=== PATIENT | male | born 1960 | race Caucasian/White ===

== ENCOUNTER 2018-07-09 22:22 | Inpatient (IN) | payer BC, OTHER ==
[2018-07-09] MEDS ORDERED: NORMAL SALINE 250 ML IV PRN (22:34)
[2018-07-09] MEDS ORDERED: DIPHENHYDRAMINE HCL 50 MG/ML VIAL IV ONE ×2 (22:35→22:47)
[2018-07-09] MEDS ORDERED: EPINEPHRINE INJ/PF 1 MG/1 ML AMPULE IM ONE (22:35)
[2018-07-09] MEDS ORDERED: METHYLPREDNISOLONE INJ 125 MG/2 ML SDV IV ONE (22:35)
--- NOTE | 2018-07-09 22:36 | ER Document Report ---
ED General - General Chief Complaint: Swelling of Tongue Stated Complaint: TONGUE/FACIAL SWELLING Time Seen by Provider: 07/09/18 22:34 Primary Care Provider: ISHAAN BARRETT MD [Primary Care Provider] - Follow up as needed Notes: Patient is a 57-year-old male presents with complaint of tongue swelling. He says he said this happened 3 times before but it went away on its own. He is on lisinopril. Patient denies any itching. No rash. No difficulty breathing at this time. Some difficulty swallowing. No other complaints at this time. He says he only takes medications for high blood pressure and high cholesterol. TRAVEL OUTSIDE OF THE [place] IN LAST 30 DAYS: No - Related Data Allergies/Adverse Reactions: lisinopril Allergy (Verified 07/09/18 22:51) Past Medical History - Social History Smoking Status: Never Smoker Frequency of alcohol use: Heavy Drug Abuse: None Family History: Reviewed & Not Pertinent Review of Systems - Review of Systems Notes: My Normal Review Basic REVIEW OF SYSTEMS: CONSTITUTIONAL : Denies fever, chills, or sweats. Denies recent illness. EENT: Large amount of tongue swelling. CARDIOVASCULAR: Denies chest pain. RESPIRATORY: Denies cough, cold, or chest congestion. Denies shortness of breath, difficulty breathing, or wheezing. GASTROINTESTINAL: Denies abdominal pain. Denies nausea, vomiting, or diarrhea. MUSCULOSKELETAL: Denies neck or back pain or joint pain or swelling. SKIN: Denies rash or skin lesions. NEUROLOGICAL: Denies altered mental status or loss of consciousness. Denies headache. Denies weakness or paralysis or loss of use of either side. Denies problems with gait or speech. Denies sensory or motor loss. ALL OTHER SYSTEMS REVIEWED AND NEGATIVE. Physical Exam - Vital signs Vitals: Temp Pulse Resp BP Pulse Ox 97.8 F 61 19 153/99 H 99 07/09/18 22:28 07/09/18 22:28 07/09/18 22:28 07/09/18 22:28 07/09/18 22:28 - Notes Notes: General Appearance: Well nourished, alert, cooperative, no acute distress, no obvious discomfort. Well-appearing. Vitals: reviewed, See vital signs table. Head: no swelling or tenderness to the head Eyes: PERRL, EOMI, Conjuctiva clear Mouth: No decreasd moisture. Large swollen tongue. Patient able to talk some but the speech is very mobile due to the swollen tongue. No lip swelling. Throat: No tonsillar inflammation, No airway obstruction, No lymphadenopathy Neck: Supple, no neck tenderness, No neck swelling Lungs: No wheezing, No rales, No rhonci, No accessory muscle use, good air exchange bilaterally. Heart: Normal rate, Regular rythm, No murmur, no rub Abdomen: Normal BS, soft, No rigidity, No abdominal tenderness, No guarding, no rebound, no abdominal masses, no organomegaly Extremities: strength 5/5 in all extremities, good pulses in all extremities, no swelling or tenderness in the extremities, no edema. Skin: warm, dry, appropriate color, no rash Neuro: speech clear, oriented x 3, normal affect, responds appropriately to questions. Course - Re-evaluation Re-evalutation: 07/09/18 22:35 Patient is very swollen and enlarged tongue. Looks consistent with angioedema. He is on lisinopril. This is the third time this has happened. I suspect it probably is related to the lisinopril as he still on the medication. Even I suspect this bradykinin induced angioedema will start with antihistamines such as epi, Benadryl, and Solu-Medrol to see if this helps. I have already ordered the FFP. We will try these other medications until the FFP can be followed. I will closely monitor his airway. He does need airway intervention and will call anesthesia to come to assist. 07/09/18 22:39 I did call blood bank to make them aware that I want the FFP thawed as soon as possible. I did inform the nurse that he will need to type and screen drawn. 07/09/18 23:05 Patient's tongue is now large. I have called nursing laboratory animal facility supervisor to bring anesthesia and to get the patient's airway secured. Patient also suddenly became hypotensive and bradycardic and now has a headache. Once his airway secured I will taken to CT scan to scan his head. 07/09/18 23:17 [address] the way. I have attempted to call the surgeon twice with no response. 07/09/18 23:34 Anesthesiologist came down and was able to intubate the patient. Patient is on the ventilator and doing well. Also the patient a CT scan of his head due to the sudden onset headache that occurred approximately 1 hour ago. Blood pressure is improved. 07/10/18 01:08 Patient at times having hard time keeping sedated with Versed and propofol. He is responding to fentanyl pushes. I have ordered a fentanyl drip. CT scan was ordered because the patient did have a headache earlier that occurred after receiving the IM epi. Patient's blood pressure is normalized. His CT scan of the head shows no evidence of intracranial bleeding. Airway is stabilized on the ventilator. He is receiving FFP to help reduce the amount of edema in his tongue. I did speak with the hospitalist, Dr. Gilbert, who agrees to evaluate the patient. Dictation of this chart was performed using voice recognition software; therefore, there may be some unintended grammatical errors. - Vital Signs Vital signs: Temp Pulse Resp BP Pulse Ox 97.8 F 61 16 153/99 H 100 07/09/18 22:28 07/09/18 22:28 07/09/18 22:34 07/09/18 22:28 07/09/18 22:34 - Laboratory Result Diagrams: 07/09/18 22:55 07/09/18 22:55 Laboratory results interpreted by me: 07/09/18 07/09/18 22:55 22:55 RBC 3.19 L Hgb 11.9 L Hct 34.3 L MCV 107 H MCH 37.2 H RDW 17.6 H Plt Count 116 L Potassium 3.4 L Critical Care Note - Critical Care Note Total time excluding time spent on procedures (mins): 65 Comments: Critical care time for this patient not including time spent on procedures approximately 65 minutes due to frequent re-evaluations, management of angioedema, management of sedation. Discharge - Discharge Clinical Impression: Angio-edema Qualifiers: Encounter type: initial encounter Qualified Code(s): T78.3XXA - Angioneurotic edema, initial encounter Condition: Stable Disposition: ADMITTED INPATIENT Admitting Provider: Hospitalist Unit Admitted: ICU
[2018-07-09] MEDS ORDERED: HYDROMORPHONE HCL INJ/PF 2 MG/ML AMPULE ONE (23:07)
[2018-07-09 23:10] LABS: ABSOLUTE BASOPHILS # (AUTO) 0.1 10^3/uL (0.0-0.2); ABSOLUTE EOSINOPHILS # (AUTO) 0.2 10^3/uL (0.0-0.6); ABSOLUTE LYMPHOCYTES (AUTO) 1.1 10^3/uL (0.5-4.7); ABSOLUTE MONOCYTES (AUTO) 0.6 10^3/uL (0.1-1.4); ABSOLUTE NEUT (AUTO) 4.9 10^3/uL (1.7-8.2); HEMATOCRIT 34.3 % (37.9-51.0); HEMOGLOBIN 11.9 g/dL (13.5-17.0); LYMPHOCYTES % (AUTO) 16.7 % (13-45); MEAN CORPUSCULAR HEMOGLOBIN 37.2 pg (27.0-33.4); MEAN CORPUSCULAR HGB CONC 34.6 g/dL (32.0-36.0); MEAN CORPUSCULAR VOLUME 107 fl (80-97); MONOCYTES % (AUTO) 8.1 % (3-13); PLATELET COUNT 116 10^3/uL (150-450); RED BLOOD COUNT 3.19 10^6/uL (4.35-5.55); RED CELL DISTRIBUTION WIDTH 17.6 % (11.5-14.0); SEGMENTED NEUTROPHILS % (AUTO) 71.2 % (42-78); TOTAL CELLS COUNTED % (AUTO) 100 %; WHITE BLOOD COUNT 6.9 10^3/uL (4.0-10.5)
[2018-07-09] MEDS ORDERED: KETAMINE HCL INJ 500 MG/10 ML VIAL ONE (23:11)
[2018-07-09] MEDS ORDERED: FENTANYL CITRATE INJ/PF 100 MCG/2 ML AMPUL ONE (23:12)
[2018-07-09] MEDS ORDERED: LIDOCAINE 1%/EPINEPHRINE INJ 20 ML VIAL ONE (23:14)
[2018-07-09] MEDS ORDERED: PROPOFOL 1,000 MG/100 ML INFUS..BTL IV ONE (23:25)
[2018-07-09 23:28] LABS: ANION GAP 13 (5-19); BLOOD UREA NITROGEN 7 mg/dL (7-20); CARBON DIOXIDE 23 mmol/L (22-30); CHLORIDE 103 mmol/L (98-107); GLUCOSE 86 mg/dL (75-110); POTASSIUM 3.4 mmol/L (3.6-5.0); SODIUM 139.1 mmol/L (137-145)
[2018-07-09] MEDS: PROPOFOL 1,000 MG/100 ML INFUS..BTL IV PRN (23:28)
[2018-07-09] MEDS ORDERED: PROPOFOL INJ 200 MG/20 ML VIAL IV ONE (23:36)
[2018-07-09] MEDS: MIDAZOLAM HCL 50 MG/100 ML RTUINJ IV PRN (23:50)
--- NOTE | 2018-07-09 23:53 | RADIOLOGY REPORT (SQ) ---
EXAM DESCRIPTION: XR CHEST 1 VIEW COMPLETED DATE/TME: 07/09/2018 23:33 CLINICAL HISTORY: 57 years, Male, ET tube placement COMPARISON: None. NUMBER OF VIEWS: 1 TECHNIQUE: Portable chest LIMITATIONS: None. FINDINGS: Cardiomegaly. Elevation right hemidiaphragm. Lungs are clear. Endotracheal tube with the tip approximately 5 cm above the richard. No pneumothorax. IMPRESSION: Endotracheal tube in place. Cardiomegaly copyright 2010 [employer] [facility] [employer]- All Rights Reserved
[2018-07-10 00:04] LABS: INTERNATIONAL RATION (INR) 0.97; PROTHROMBIN TIME 13.3 SEC (11.4-15.4)
[2018-07-10] MEDS ORDERED: FENTANYL CITRATE INJ/PF 100 MCG/2 ML AMPUL IV ONE ×2 (00:13→00:37)
[2018-07-10] MEDS ORDERED: FENTANYL CITRATE INJ/PF 100 MCG/2 ML AMPUL ONE (00:13)
[2018-07-10] MEDS ORDERED: LIDOCAINE 2% URO-JET 5 ML KIT MM ONE (00:24)
--- NOTE | 2018-07-10 00:36 | RADIOLOGY REPORT (SQ) ---
EXAM DESCRIPTION: CT HEAD WITHOUT IV CONTRAST COMPLETED DATE/TME: 07/09/2018 23:33 CLINICAL HISTORY: 57 years, Male, headache COMPARISON: None. TECHNIQUE: 199 Images stored on PACS. All CT scanners at this facility use dose modulation, iterative reconstruction, and/or weight based dosing when appropriate to reduce radiation dose to as low as reasonably achievable (ALARA). [facility]: Dose Right [facility]: CareDose [facility]: Dose Right [facility]: Teradose 4D [facility]: Pipit Interactive LIMITATIONS: None. FINDINGS: The globes are intact. Motion artifact degrades image quality. Nasogastric tube partially seen. Paranasal sinusitis. No evidence for displaced or depressed skull fracture. No intra or extra-axial hemorrhage. CT is limited for evaluation of acute infarct. No CT evidence for large or territorial acute infarct. No mass or midline shift IMPRESSION: Limited due to motion however no evidence for acute intracranial abnormality. Pansinusitis. TECHNICAL DOCUMENTATION: Quality ID # 436: Final reports with documentation of one or more dose reduction techniques (e.g., Automated exposure control, adjustment of the mA and/or kV according to patient size, use of iterative reconstruction technique) copyright 2010 [employer]- All Rights Reserved
[2018-07-10] MEDS ORDERED: FENTANYL CITRATE/PF 600 MCG/60 ML BAG IV PRN (01:28)
[2018-07-10] MEDS ORDERED: DEXTROSE 40% GEL 15 GM TUBE PO PRN ×2 (01:54)
[2018-07-10] MEDS ORDERED: GLUCAGON,HUMAN RECOMB 1 MG INJ SUBCUT PRN (01:54)
[2018-07-10] MEDS ORDERED: ONDANSETRON HCL INJ/PF 4 MG/2 ML SDV IV PRN (01:54)
[2018-07-10] MEDS ORDERED: DEXTROSE 50%-WATER 25 GM/50 ML DISP.SYRIN IV PRN ×2 (01:54)
[2018-07-10 03:11] LABS: CREATINE KINASE MB 0.52 ng/mL (<4.55)
[2018-07-10 03:16] LABS: TROPONIN I < 0.012 ng/mL
[2018-07-10 05:37] LABS: ARTERIAL BLOOD BASE EXCESS -1.5 mmol/L; ARTERIAL BLOOD H2CO3 1.12 mmol/L (1.05-1.35); ARTERIAL BLOOD HCO3 22.9 mmol/L (20-24); ARTERIAL BLOOD O2 SATURATION 98.7 % (94-98); ARTERIAL BLOOD PCO2 37.3 mmHg (35-45); ARTERIAL BLOOD PH 7.41 (7.35-7.45); ARTERIAL BLOOD PO2 135.3 mmHg (80-100)
[2018-07-10 05:37] LABS: CREATINE KINASE MB 0.52 ng/mL (<4.55); TROPONIN I 0.015 ng/mL
[2018-07-10 05:38] LABS: ARTERIAL BLOOD FIO2 60%
[2018-07-10] MEDS: DIPHENHYDRAMINE HCL 50 MG/ML VIAL IV SCH ×4 (05:53→23:32)
[2018-07-10] MEDS: METHYLPREDNISOLONE INJ 40 MG/1 ML SDV IV SCH ×4 (05:53→23:32)
[2018-07-10] MEDS: MIDAZOLAM HCL 50 MG/100 ML RTUINJ IV PRN ×4 (05:55→20:29)
[2018-07-10] MEDS: POTASSI CL 20 MEQ/D5-1/2NS 1L 1,000 ML IV PRN ×3 (05:56→23:31)
[2018-07-10] MEDS: PROPOFOL 1,000 MG/100 ML INFUS..BTL IV PRN ×4 (05:57→22:54)
--- NOTE | 2018-07-10 06:12 | PDOC H&P ---
History of Present Illness Admission Date/PCP: 07/10/18 01:16 ISHAAN BARRETT MD Patient complains of: Swelling of mouth and tongue History of Present Illness: ALEKSANDRA SALAZAR is a 57 year old male who presented to the emergency room with an acute history of swelling of his mouth and tongue. He admits that he had sudden onset of swelling of his lips and tongue beginning a short time prior to his arrival at the emergency room. In addition to the swelling he had noted some difficulty with swallowing. Initially he was having no itching or difficulty breathing but over a short time in the emergency room his symptoms increased exponentially to the point where he was having a good deal of difficulty breathing and required intubation and ventilation. He admited having several prior similar episodes that went away very quickly after taking Benadryl but this episode had not improved after taking Benadryl and he was concerned. He denies identification of any other aggravating or ameliorating factors for his angioedema. He does take lisinopril but was not aware that it might cause this problem. In the emergency room he was found to have rapidly progressing severe angioedema requiring intubation to maintain his airway. He was subsequently admitted to the ICU for further evaluation and treatment. Past Medical History Cardiac Medical History: Reports: Hyperlipidema, Hypertension Pulmonary Medical History: Denies: Asthma, Chronic Obstructive Pulmonary Disease (COPD) EENT Medical History: Denies: Cataracts Neurological Medical History: Denies: Hemorrhagic CVA, Ischemic CVA, Seizures Endocrine Medical History: Denies: Diabetes Mellitus Type 1, Diabetes Mellitus Type 2, Hyperthyroidism, Hypothyroidism Renal/ Medical History: Reports: Other - Prostate cancer Denies: Chronic Kidney Disease, Nephrolithiasis Malignancy Medical History: Reports: None GI Medical History: Denies: Cirrhosis, Hepatitis Musculoskeltal Medical History: Denies: Arthritis, Gout Skin Medical History: Denies: Eczema, Psoriasis Psychiatric Medical History: Reports: Alcohol Dependency, Tobacco Dependency Denies: Substance Abuse Traumatic Medical History: Reports: None Hematology: Reports: Anemia Denies: Bleeding Tendencies Infectious Medical History: Reports: None Past Surgical History Past Surgical History: Reports: Other - Radioactive seed implants for prostate cancer Social History Information Source: Relative Lives with: Parents Smoking Status: Current Every Day Smoker Frequency of Alcohol Use: Heavy Hx Recreational Drug Use: No Drugs: None Hx Prescription Drug Abuse: No - Advance Directive Resuscitation Status: Full Code Surrogate healthcare decision maker:: Mother Family History Family History: Hyperlipidemia, Hypertension, Malignancy, Other - Alcoholism Parental Family History Reviewed: Yes Children Family History Reviewed: No Sibling(s) Family History Reviewed.: Yes Medication/Allergy Allergies/Adverse Reactions: lisinopril Allergy (Verified 07/09/18 22:51) Review of Systems ROS unobtainable: Due to endotracheal tube Physical Exam Vital Signs: Temp Pulse Resp BP Pulse Ox 97.8 F 61 16 153/99 H 100 07/09/18 22:28 07/09/18 22:28 07/09/18 22:34 07/09/18 22:28 07/09/18 22:34 Intake & Output 07/08/18 07/09/18 07/10/18 23:59 23:59 23:59 Intake Total 5 20 Balance 5 20 Weight 88.3 kg General appearance: PRESENT: no acute distress, other - Intubated and ventilated with sedation. Head exam: PRESENT: atraumatic, normocephalic Eye exam: PRESENT: conjunctiva pink. ABSENT: scleral icterus Ear exam: PRESENT: normal external ear exam. ABSENT: bleeding, drainage Mouth exam: PRESENT: dry mucosa, neck supple Neck exam: ABSENT: thyromegaly, tracheal deviation Respiratory exam: PRESENT: clear to auscultation jhonathan, symmetrical, other - Intubated and mechanically ventilated Cardiovascular exam: PRESENT: RRR. ABSENT: clicks, gallop, rubs Pulses: PRESENT: normal radial pulses, normal dorsalis pedis pul Vascular exam: PRESENT: normal capillary refill. ABSENT: pallor GI/Abdominal exam: PRESENT: normal bowel sounds, soft Rectal exam: PRESENT: deferred Extremities exam: ABSENT: joint swelling, pedal edema Musculoskeletal exam: ABSENT: deformity, dislocation Neurological exam: PRESENT: reflexes normal, other - Sedated for intubation Psychiatric exam: PRESENT: other - Sedated for intubation precluding further evaluation Skin exam: PRESENT: dry, intact, warm. ABSENT: jaundice, rash, urticaria Results Laboratory Results: 07/09/18 22:55 07/09/18 22:55 07/09/18 07/09/18 07/09/18 22:55 22:55 22:55 WBC 6.9 RBC 3.19 L Hgb 11.9 L Hct 34.3 L MCV 107 H MCH 37.2 H MCHC 34.6 RDW 17.6 H Plt Count 116 L Seg Neutrophils % 71.2 Lymphocytes % 16.7 Monocytes % 8.1 Eosinophils % 3.0 Basophils % 1.0 Absolute Neutrophils 4.9 Absolute Lymphocytes 1.1 Absolute Monocytes 0.6 Absolute Eosinophils 0.2 Absolute Basophils 0.1 Sodium 139.1 Potassium 3.4 L Chloride 103 Carbon Dioxide 23 Anion Gap 13 BUN 7 Creatinine 0.64 Est GFR ( Amer) > 60 Est GFR (Non-Af Amer) > 60 Glucose 86 Calcium 9.0 Blood Type O NEGATIVE Impressions: Chest X-Ray 07/09/18 23:33 IMPRESSION: Endotracheal tube in place. Cardiomegaly copyright 2010 [employer]- All Rights Reserved Head CT 07/09/18 23:33 IMPRESSION: Limited due to motion however no evidence for acute intracranial abnormality. Pansinusitis. TECHNICAL DOCUMENTATION: Quality ID # 436: Final reports with documentation of one or more dose reduction techniques (e.g., Automated exposure control, adjustment of the mA and/or kV according to patient size, use of iterative reconstruction technique) copyright 2010 [employer]- All Rights Reserved Assessment & Plan - Diagnosis (1) Acute respiratory failure Qualifiers: Respiratory failure complication: unspecified whether with hypoxia or hypercapnia Qualified Code(s): J96.00 - Acute respiratory failure, unspecified whether with hypoxia or hypercapnia Is this a current diagnosis for this admission?: Yes Plan: Patient had acute respiratory failure based on his angioedema obstructing his airway. He was subsequently intubated and he will be maintained on intubation with mechanical ventilation until such time as it is safe to discontinue his e ndotracheal tube. (2) Angioedema of intestine due to angiotensin converting enzyme inhibitor (KARLOS- I) Is this a current diagnosis for this admission?: Yes Plan: Patient will be treated with IV steroids and supportive as well as symptomatic cares until his angioedema resolves. He will be discontinued from use of KARLOS inhibitors. (3) Hypertension Qualifiers: Hypertension type: essential hypertension Qualified Code(s): I10 - Essential (primary) hypertension Is this a current diagnosis for this admission?: Yes Plan: Patient will be placed on an alternate antihypertensive therapy prior to discharge. In the interim he will be treated with intravenous hydralazine and/or intravenous metoprolol to maintain a blood pressure less than 160/100 (4) Hyperlipidemia Qualifiers: Hyperlipidemia type: unspecified Qualified Code(s): E78.5 - Hyperlipidemia, unspecified Is this a current diagnosis for this admission?: Yes Plan: Patient will be returned to his usual statin therapy once he is able to take oral medications again. A lipid profile will be obtained to evaluate his ther apeutic efficacy. (5) Alcohol abuse Is this a current diagnosis for this admission?: Yes Plan: Patient will be counseled for discontinuation or reduction of alcohol abuse in the future once he is able to be involved in this discussion. (6) Tobacco use disorder, moderate, dependence Is this a current diagnosis for this admission?: Yes Plan: Patient will be counseled for tobacco cessation when he is able to be involved in the discussion. A nicotine patch will be available as required. - Time Time Spent: 30 to 50 Minutes Critical Time spent with patient: Less than 15 minutes Medications reviewed and adjusted accordingly: Yes Anticipated discharge: Home - Inpatient Certification Based on my medical assessment, after consideration of the patient's comorbidities, presenting symptoms, or acuity I expect that the services needed warrant INPATIENT care.: Yes I certify that my determination is in accordance with my understanding of Medicare's requirements for reasonable and necessary INPATIENT services [42 CFR 412.3e].: Yes Medical Necessity: Need Close Monitoring Due to Risk of Patient Decompensation, Need For Continuous Telemetry Monitoring, Risk of Complication if Not Cared For in Hospital
[2018-07-10] MEDS ORDERED: FONDAPARINUX SODIUM INJ 2.5 MG/0.5 ML DISP.SYRIN SUBCUT SCH (08:00)
[2018-07-10] MEDS ORDERED: SUCCINYLCHOLINE CHLORIDE INJ 200 MG/10 ML VIAL ONE (09:12)
[2018-07-10] MEDS ORDERED: ETOMIDATE INJ/PF 20 MG/10 ML SDV IV ONE (09:12)
[2018-07-10 09:46] LABS: ALANINE AMINOTRANSFERASE 39 U/L (21-72); ALBUMIN 3.4 g/dL (3.5-5.0); ALKALINE PHOSPHATASE 74 U/L (38-126); ANION GAP 10 (5-19); ASPARTATE AMINO TRANSFERASE 43 U/L (17-59); BILIRUBIN,DIRECT 0.3 mg/dL (0.0-0.4); BILIRUBIN,TOTAL 0.6 mg/dL (0.2-1.3); BLOOD UREA NITROGEN 8 mg/dL (7-20); CALCIUM 8.4 mg/dL (8.4-10.2); CARBON DIOXIDE 21 mmol/L (22-30); CHLORIDE 107 mmol/L (98-107); GLUCOSE 140 mg/dL (75-110); POTASSIUM 3.6 mmol/L (3.6-5.0); SODIUM 138.1 mmol/L (137-145); TOTAL PROTEIN 6.2 g/dL (6.3-8.2)
[2018-07-10] MEDS: FAMOTIDINE INJ/PF 20 MG/2 ML SDV IV SCH ×2 (10:51→21:15)
[2018-07-10] MEDS: PANTOPRAZOLE SODIUM 40 MG VIAL IV SCH ×2 (10:51→21:15)
[2018-07-10 11:49] LABS: CREATINE KINASE MB 0.39 ng/mL (<4.55); TROPONIN I < 0.012 ng/mL
--- NOTE | 2018-07-10 12:37 | EKG REPORT ---
SEVERITY:- ABNORMAL ECG - SINUS RHYTHM PROBABLE LEFT ATRIAL ABNORMALITY PROBABLE ANTEROSEPTAL INFARCT, AGE INDETERM : Confirmed by: Clair Lamar MD 10-Jul-2018 12:36:23
--- NOTE | 2018-07-10 13:46 | PDOC PROGRESS REPORT ---
Subjective Progress Note for:: 07/10/18 Subjective:: The patient is intubated and sedated. There is blood coming from the left side of his mouth. He does not appear to be in distress. Reason For Visit: ACUTE ANGIOEDEMA WITH AIRWAY OBSTRUCTION Physical Exam Vital Signs: Temp Pulse Resp BP Pulse Ox 96.6 F L 73 16 155/84 H 96 07/10/18 08:00 07/10/18 08:00 07/10/18 08:00 07/10/18 08:00 07/10/18 08:00 Intake & Output 07/09/18 07/10/18 07/11/18 06:59 06:59 07:59 Intake Total 760 Output Total 500 50 Balance 260 -50 Weight 88.3 kg General appearance: PRESENT: no acute distress Head exam: PRESENT: normocephalic Ear exam: PRESENT: normal external ear exam Mouth exam: PRESENT: moist, other - Tongue is still very swollen. Left side of the tongue is rubbing against the mandibular teeth. There is blood coming from the left side of the mouth. With the assistance of the nurse was able to pull back the left cheek. We suctioned out blood clots. When lifting the tongue it was noted that he had a laceration of the underside of the tongue. It is consistent with the tongue rubbing on those teeth. The tongue is still swollen and so there is pressure. This is what likely lacerated the tongue. Teeth exam: PRESENT: poor dentation Throat exam: PRESENT: other - Endotracheal tube in place. Nasogastric tube in place. Neck exam: ABSENT: carotid bruit, lymphadenopathy Respiratory exam: PRESENT: clear to auscultation jhonathan, symmetrical, unlabored, other - Respirations are consistent with the set rate on the ventilator.. ABSENT: crackles, rales, rhonchi, wheezes Cardiovascular exam: PRESENT: RRR, +S1, +S2 Pulses: PRESENT: normal dorsalis pedis pul GI/Abdominal exam: PRESENT: normal bowel sounds, soft. ABSENT: distended, tenderness Rectal exam: PRESENT: deferred Gentrourinary exam: PRESENT: indwelling catheter Extremities exam: ABSENT: pedal edema Neurological exam: PRESENT: other - Intubated and sedated. Does not respond to verbal stimulus. Psychiatric exam: ABSENT: agitated Focused psych exam: ABSENT: restlessness Results Laboratory Results: 07/09/18 22:55 07/09/18 07/09/18 07/09/18 22:55 22:55 22:55 WBC 6.9 RBC 3.19 L Hgb 11.9 L Hct 34.3 L MCV 107 H MCH 37.2 H MCHC 34.6 RDW 17.6 H Plt Count 116 L Seg Neutrophils % 71.2 Lymphocytes % 16.7 Monocytes % 8.1 Eosinophils % 3.0 Basophils % 1.0 Absolute Neutrophils 4.9 Absolute Lymphocytes 1.1 Absolute Monocytes 0.6 Absolute Eosinophils 0.2 Absolute Basophils 0.1 Carbonic Acid HCO3/H2CO3 Ratio ABG pH ABG pCO2 ABG pO2 ABG HCO3 ABG O2 Saturation ABG Base Excess FiO2 Sodium 139.1 Potassium 3.4 L Chloride 103 Carbon Dioxide 23 Anion Gap 13 BUN 7 Creatinine 0.64 Est GFR ( Amer) > 60 Est GFR (Non-Af Amer) > 60 Glucose 86 Calcium 9.0 Blood Type O NEGATIVE 07/10/18 05:22 WBC RBC Hgb Hct MCV MCH MCHC RDW Plt Count Seg Neutrophils % Lymphocytes % Monocytes % Eosinophils % Basophils % Absolute Neutrophils Absolute Lymphocytes Absolute Monocytes Absolute Eosinophils Absolute Basophils Carbonic Acid 1.12 HCO3/H2CO3 Ratio 20:1 ABG pH 7.41 ABG pCO2 37.3 ABG pO2 135.3 H ABG HCO3 22.9 ABG O2 Saturation 98.7 H ABG Base Excess -1.5 FiO2 60% Sodium Potassium Chloride Carbon Dioxide Anion Gap BUN Creatinine Est GFR ( Amer) Est GFR (Non-Af Amer) Glucose Calcium Blood Type 07/09/18 07/09/18 07/10/18 22:55 22:55 05:04 Creatine Kinase 40 L 41 L CK-MB (CK-2) 0.52 Troponin I < 0.012 07/10/18 05:04 Creatine Kinase CK-MB (CK-2) 0.52 Troponin I 0.015 Impressions: Chest X-Ray 07/09/18 23:33 IMPRESSION: Endotracheal tube in place. Cardiomegaly copyright 2011 [email or web address]- All Rights Reserved Head CT 07/09/18 23:33 IMPRESSION: Limited due to motion however no evidence for acute intracranial abnormality. Pansinusitis. TECHNICAL DOCUMENTATION: Quality ID # 436: Final reports with documentation of one or more dose reduction techniques (e.g., Automated exposure control, adjustment of the mA and/or kV according to patient size, use of iterative reconstruction technique) copyright 2011 [employer] [facility] [employer]- All Rights Reserved Assessment & Plan - Diagnosis (1) Acute respiratory failure Qualifiers: Respiratory failure complication: unspecified whether with hypoxia or hypercapnia Qualified Code(s): J96.00 - Acute respiratory failure, unspecified whether with hypoxia or hypercapnia Is this a current diagnosis for this admission?: Yes Plan: The patient experienced angioedema of the tongue and throat due to his KARLOS inhibitor medication. He was emergently intubated. He remains on the ventilator. His tongue is still swollen. Continue ventilator support until there is significant reduction in tongue swelling. (2) Angioedema of intestine due to angiotensin converting enzyme inhibitor (KARLOS- I) Is this a current diagnosis for this admission?: Yes Plan: As above. It is in the old records that he has had a reaction to his KARLOS inhibitor in the past but it was mild and Benadryl relieved. This time it was life-threatening. If his blood pressure increases we will use alternate medications. We have discontinued the patient's lisinopril. He is on Benadryl, methylprednisolone and Pepcid. (3) Laceration of tongue Qualifiers: Encounter type: initial encounter Qualified Code(s): S01.512A - Laceration without foreign body of oral cavity, initial encounter Is this a current diagnosis for this admission?: Yes Plan: There is an approximately 1,5 cm laceration on the underside left tongue. It corresponds to where the glossal mucosa was sitting against the mandibular teeth. There was continuous oozing. Blood clots were suctioned out of the patient's mouth. With the help of the nurse were able to elevate the tongue, clean the floor of the mouth and place a gauze pad between the teeth and his tongue. I have written orders to use saline moist gauze and replace every time oral care is done or if needed. I will monitor the patient's hemoglobin and hematocrit. It does not seem likely that the lesion of this size would cause significant exsanguination. He may likely have some dark stool clearing the blood that already is in the GI tract. Because of the bleeding his Arixtra is on hold. - Time Time Spent with patient: 35 or more minutes Medications reviewed and adjusted accordingly: Yes - Inpatient Certification Based on my medical assessment, after consideration of the patient's comorbid ities, presenting symptoms, or acuity I expect that the services needed warrant INPATIENT care.: Yes I certify that my determination is in accordance with my understanding of Medicare's requirements for reasonable and necessary INPATIENT services [42 CFR 412.3e].: Yes
[2018-07-10] MEDS: INSULIN LISPRO 100 UNIT/ML 3 ML VIAL SUBCUT SCH (21:50)
[2018-07-11] MEDS: INSULIN LISPRO 100 UNIT/ML 3 ML VIAL SUBCUT SCH ×4 (03:42→21:52)
[2018-07-11 04:33] LABS: HEMATOCRIT 30.4 % (37.9-51.0); HEMOGLOBIN 10.5 g/dL (13.5-17.0); MEAN CORPUSCULAR HEMOGLOBIN 36.7 pg (27.0-33.4); MEAN CORPUSCULAR HGB CONC 34.6 g/dL (32.0-36.0); MEAN CORPUSCULAR VOLUME 106 fl (80-97); PLATELET COUNT 100 10^3/uL (150-450); RED BLOOD COUNT 2.86 10^6/uL (4.35-5.55); WHITE BLOOD COUNT 10.5 10^3/uL (4.0-10.5)
[2018-07-11 04:35] LABS: ARTERIAL BLOOD H2CO3 0.95 mmol/L (1.05-1.35); ARTERIAL BLOOD HCO3 20.5 mmol/L (20-24); ARTERIAL BLOOD O2 SATURATION 96.5 % (94-98); ARTERIAL BLOOD PCO2 31.5 mmHg (35-45); ARTERIAL BLOOD PH 7.43 (7.35-7.45); ARTERIAL BLOOD PO2 81.9 mmHg (80-100); ARTERIAL BLOOD TOTAL CO2 21.5 mmol/L (23-27)
[2018-07-11 04:57] LABS: ALANINE AMINOTRANSFERASE 23 U/L (21-72); ALBUMIN 3.1 g/dL (3.5-5.0); ALKALINE PHOSPHATASE 59 U/L (38-126); ANION GAP 11 (5-19); ASPARTATE AMINO TRANSFERASE 27 U/L (17-59); BILIRUBIN,DIRECT 0.3 mg/dL (0.0-0.4); BILIRUBIN,TOTAL 0.4 mg/dL (0.2-1.3); BLOOD UREA NITROGEN 6 mg/dL (7-20); CARBON DIOXIDE 19 mmol/L (22-30); CHLORIDE 110 mmol/L (98-107); CHOLESTEROL 140.22 mg/dL (0-200); GLUCOSE 197 mg/dL (75-110); POTASSIUM 3.8 mmol/L (3.6-5.0); SODIUM 139.6 mmol/L (137-145); TOTAL PROTEIN 5.6 g/dL (6.3-8.2); TRIGLYCERIDES 78 mg/dL (<150)
[2018-07-11 05:01] LABS: ARTERIAL BLOOD FIO2 45%
[2018-07-11 05:08] LABS: DIRECT LDL 83 mg/dL (<100)
[2018-07-11] MEDS: DIPHENHYDRAMINE HCL 50 MG/ML VIAL IV SCH ×4 (05:10→23:37)
[2018-07-11] MEDS: METHYLPREDNISOLONE INJ 40 MG/1 ML SDV IV SCH ×4 (05:10→23:36)
[2018-07-11] MEDS: MIDAZOLAM HCL 50 MG/100 ML RTUINJ IV PRN ×2 (05:11→15:18)
[2018-07-11 05:12] LABS: FREE T3 3.23 pg/mL (2.77-5.27); FREE T4 (FREE THYROXINE) 1.16 ng/dL (0.78-2.19)
[2018-07-11] MEDS: PROPOFOL 1,000 MG/100 ML INFUS..BTL IV PRN ×3 (05:12→18:08)
[2018-07-11 05:25] LABS: THYROID STIMULATING HORMONE 0.68 uIU/mL (0.47-4.68)
[2018-07-11 05:33] LABS: ABSOLUTE LYMPHOCYTES# (MANUAL) 0.4 10^3/uL (0.5-4.7); ABSOLUTE MONOCYTES # (MANUAL) 0.3 10^3/uL (0.1-1.4); ABSOLUTE NEUTROPHILS# (MANUAL) 9.8 10^3/uL (1.7-8.2); BASOPHILS % (MANUAL) 0 % (0-2); EOSINOPHILS % (MANUAL) 0 % (0-6); LYMPHOCYTES % (MANUAL) 4 % (13-45); MONOCYTES % (MANUAL) 3 % (3-13); SEGMENTED NEUTROPHILS % (MAN) 93 % (42-78); TOTAL CELLS COUNTED 100
[2018-07-11 05:35] LABS: ANISOCYTOSIS 1+; BURR CELLS SLIGHT; HELMET CELLS SLIGHT; OVALOCYTES 1+; PLATELET COMMENT ADEQUATE; POIKILOCYTOSIS 2+; TEAR DROP CELLS 1+; TOXIC GRANULATION 1+
[2018-07-11] MEDS: MAGNESIUM SULFATE 1 GM/D5W 100 ML IV SCH ×2 (06:07→07:12)
--- NOTE | 2018-07-11 09:53 | RADIOLOGY REPORT (SQ) ---
EXAM DESCRIPTION: CHEST SINGLE VIEW COMPLETED DATE/TIME: 07/11/2018 6:51 am REASON FOR STUDY: on vent COMPARISON: 07/09/2018 NUMBER OF VIEWS: One view. TECHNIQUE: Single frontal radiographic image of the chest acquired. LIMITATIONS: None. FINDINGS: LUNGS AND PLEURA: Improved aeration left lower lobe. Residual airspace disease right lowe r lobe. No pneumothorax. MEDIASTINUM AND HEART: Stable heart size and mediastinal structures. SUPPORT DEVICES: Unchanged position of endotracheal tube. Placement of a nasogastric tube extending into the left upper quadrant. BONY STRUCTURES: No acute findings. HARDWARE: None. OTHER: No other significant finding. IMPRESSION: Improving pneumonia. No pneumothorax. Reading location - IP/workstation name: [email or web address]
[2018-07-11] MEDS: PANTOPRAZOLE SODIUM 40 MG VIAL IV SCH ×2 (10:30→21:53)
[2018-07-11] MEDS: FAMOTIDINE INJ/PF 20 MG/2 ML SDV IV SCH ×2 (10:30→21:53)
[2018-07-11] MEDS ORDERED: MAGNESIUM SULFATE 4 GM/100 ML RTUPB IV ONE (10:51)
--- NOTE | 2018-07-11 10:57 | PDOC PROGRESS REPORT ---
Subjective Progress Note for:: 07/11/18 Subjective:: Patient is resting comfortably. There has been little blood on the gauze from the tongue laceration. The tongue is getting smaller and so we may be able to discontinue this. Reason For Visit: ACUTE ANGIOEDEMA WITH AIRWAY OBSTRUCTION Physical Exam Vital Signs: Temp Pulse Resp BP Pulse Ox 98.1 F 73 12 117/68 97 07/11/18 08:00 07/11/18 08:00 07/11/18 08:00 07/11/18 08:00 07/11/18 08:10 Intake & Output 07/10/18 07/11/18 07/12/18 05:59 06:59 06:59 Intake Total 100 Output Total 0 Balance 100 Weight General appearance: PRESENT: no acute distress, other - Resting comfortably on the vent Head exam: PRESENT: normocephalic Ear exam: PRESENT: normal external ear exam Mouth exam: PRESENT: moist, tongue midline - Tongue is much smaller today Teeth exam: PRESENT: poor dentation Neck exam: ABSENT: carotid bruit, lymphadenopathy Respiratory exam: PRESENT: clear to auscultation jhonathan, symmetrical, unlabored. ABSENT: accessory muscle use, rales, rhonchi, wheezes Cardiovascular exam: PRESENT: RRR, +S1, +S2 Pulses: PRESENT: +1 pedal pulses bilateral GI/Abdominal exam: PRESENT: normal bowel sounds, soft. ABSENT: distended, tenderness Rectal exam: PRESENT: deferred Gentrourinary exam: PRESENT: indwelling catheter Extremities exam: ABSENT: joint swelling, pedal edema Musculoskeletal exam: ABSENT: ambulatory Neurological exam: ABSENT: awake - Intubated and sedated Psychiatric exam: ABSENT: agitated Focused psych exam: ABSENT: restlessness Results Laboratory Results: 07/11/18 04:01 07/11/18 04:01 07/11/18 07/11/18 07/11/18 04:01 04:01 04:01 WBC 10.5 RBC 2.86 L Hgb 10.5 L Hct 30.4 L MCV 106 H MCH 36.7 H MCHC 34.6 RDW 17.0 H Plt Count 100 L Seg Neutrophils % Not Reportable Lymphocytes % Not Reportable Monocytes % Not Reportable Eosinophils % Not Reportable Basophils % Not Reportable Absolute Neutrophils Not Reportable Absolute Lymphocytes Not Reportable Absolute Monocytes Not Reportable Absolute Eosinophils Not Reportable Absolute Basophils Not Reportable Carbonic Acid HCO3/H2CO3 Ratio ABG pH ABG pCO2 ABG pO2 ABG HCO3 ABG O2 Saturation ABG Base Excess FiO2 Sodium 139.6 Potassium 3.8 Chloride 110 H Carbon Dioxide 19 L Anion Gap 11 BUN 6 L Creatinine 0.58 Est GFR ( Amer) > 60 Est GFR (Non-Af Amer) > 60 Glucose 197 H Calcium 8.0 L Magnesium 1.2 L* Total Bilirubin 0.4 AST 27 ALT 23 Alkaline Phosphatase 59 Total Protein 5.6 L Albumin 3.1 L Triglycerides 78 Cholesterol 140.22 LDL Cholesterol Direct 83 VLDL Cholesterol 16.0 HDL Cholesterol 45 TSH 0.68 Free T4 1.16 Free T3 pg/mL 3.23 07/11/18 04:30 WBC RBC Hgb Hct MCV MCH MCHC RDW Plt Count Seg Neutrophils % Lymphocytes % Monocytes % Eosinophils % Basophils % Absolute Neutrophils Absolute Lymphocytes Absolute Monocytes Absolute Eosinophils Absolute Basophils Carbonic Acid 0.95 L HCO3/H2CO3 Ratio 21:1 ABG pH 7.43 ABG pCO2 31.5 L ABG pO2 81.9 ABG HCO3 20.5 ABG O2 Saturation 96.5 ABG Base Excess -3.0 FiO2 45% Sodium Potassium Chloride Carbon Dioxide Anion Gap BUN Creatinine Est GFR ( Amer) Est GFR (Non-Af Amer) Glucose Calcium Magnesium Total Bilirubin AST ALT Alkaline Phosphatase Total Protein Albumin Triglycerides Cholesterol LDL Cholesterol Direct VLDL Cholesterol HDL Cholesterol TSH Free T4 Free T3 pg/mL 07/09/18 07/09/18 07/10/18 22:55 22:55 05:04 Creatine Kinase 40 L 41 L CK-MB (CK-2) 0.52 Troponin I < 0.012 NT-Pro-B Natriuret Pep 07/10/18 07/10/18 07/10/18 05:04 11:08 11:08 Creatine Kinase 39 L CK-MB (CK-2) 0.52 0.39 Troponin I 0.015 < 0.012 NT-Pro-B Natriuret Pep 07/11/18 04:01 Creatine Kinase CK-MB (CK-2) Troponin I NT-Pro-B Natriuret Pep 621 Impressions: Head CT 07/09/18 23:33 IMPRESSION: Limited due to motion however no evidence for acute intracranial abnormality. Pansinusitis. TECHNICAL DOCUMENTATION: Quality ID # [id number]: Final reports with documentation of one or more dose reduction techniques (e.g., Automated exposure control, adjustment of the mA and/or kV according to patient size, use of iterative reconstruction technique) copyright 2011 [employer]- All Rights Reserved Chest X-Ray 07/11/18 06:00 IMPRESSION: Improving pneumonia. No pneumothorax. Assessment & Plan - Diagnosis (1) Acute respiratory failure Qualifiers: Respiratory failure complication: unspecified whether with hypoxia or hypercapnia Qualified Code(s): J96.00 - Acute respiratory failure, unspecified whether with hypoxia or hypercapnia Is this a current diagnosis for this admission?: Yes Plan: We will begin ventilator weaning by decreasing sedation. Also see pulmonology note. His tongue is certainly smaller and we may be able to extubate. Will definitely be cautious as to avoid reintubation. (2) Angioedema of intestine due to angiotensin converting enzyme inhibitor (KARLOS- I) Is this a current diagnosis for this admission?: Yes Plan: Continue current regimen as we are seeing progress. (3) Laceration of tongue Qualifiers: Encounter type: initial encounter Qualified Code(s): S01.512A - Laceration without foreign body of oral cavity, initial encounter Is this a current diagnosis for this admission?: Yes Plan: With the tongue getting smaller there is no direct contact of the underside of the tongue to the mandibular teeth. We will keep the gauze in for today. By tomorrow the tongue should be small enough that we can remove the gauze. (4) Hypomagnesemia Is this a current diagnosis for this admission?: Yes Plan: Patient's serum magnesium is quite low at 1.2. I will give 4 g of magnesium sulfate. I will recheck magnesium level later today. I will start the patient on the electrolyte protocol. - Time Time Spent with patient: 25-34 minutes Medications reviewed and adjusted accordingly: Yes
[2018-07-11] MEDS: MAGNESIUM SULFATE/D5W 1 GM/100 ML RTUPB IV SCH ×2 (11:30→12:50)
[2018-07-11] MEDS: POTASSI CL 20 MEQ/D5-1/2NS 1L 1,000 ML IV PRN (23:36)
[2018-07-12] MEDS: PROPOFOL 1,000 MG/100 ML INFUS..BTL IV PRN ×3 (00:44→19:21)
[2018-07-12] MEDS: MIDAZOLAM HCL 50 MG/100 ML RTUINJ IV PRN ×2 (00:45→08:57)
[2018-07-12] MEDS: INSULIN LISPRO 100 UNIT/ML 3 ML VIAL SUBCUT SCH ×4 (03:00→21:58)
[2018-07-12 04:40] LABS: HEMATOCRIT 30.8 % (37.9-51.0); HEMOGLOBIN 10.6 g/dL (13.5-17.0); MEAN CORPUSCULAR HEMOGLOBIN 36.4 pg (27.0-33.4); MEAN CORPUSCULAR HGB CONC 34.3 g/dL (32.0-36.0); MEAN CORPUSCULAR VOLUME 106 fl (80-97); RED CELL DISTRIBUTION WIDTH 16.8 % (11.5-14.0); WHITE BLOOD COUNT 11.9 10^3/uL (4.0-10.5)
[2018-07-12 05:00] LABS: PLATELET COUNT 98 10^3/uL (150-450)
[2018-07-12 05:02] LABS: ABSOLUTE LYMPHOCYTES# (MANUAL) 0.4 10^3/uL (0.5-4.7); ABSOLUTE MONOCYTES # (MANUAL) 0.2 10^3/uL (0.1-1.4); ABSOLUTE NEUTROPHILS# (MANUAL) 11.3 10^3/uL (1.7-8.2); BASOPHILS % (MANUAL) 0 % (0-2); EOSINOPHILS % (MANUAL) 0 % (0-6); LYMPHOCYTES % (MANUAL) 3 % (13-45); MONOCYTES % (MANUAL) 2 % (3-13); SEGMENTED NEUTROPHILS % (MAN) 95 % (42-78); TOTAL CELLS COUNTED 100
[2018-07-12 05:03] LABS: ANISOCYTOSIS 1+; PLATELET COMMENT DECREASED; POLYCHROMASIA 1+
[2018-07-12 05:35] LABS: ALANINE AMINOTRANSFERASE 24 U/L (21-72); ALBUMIN 2.9 g/dL (3.5-5.0); ALKALINE PHOSPHATASE 58 U/L (38-126); ANION GAP 9 (5-19); ASPARTATE AMINO TRANSFERASE 23 U/L (17-59); BILIRUBIN,DIRECT 0.3 mg/dL (0.0-0.4); BILIRUBIN,TOTAL 0.4 mg/dL (0.2-1.3); BLOOD UREA NITROGEN 6 mg/dL (7-20); CALCIUM 7.9 mg/dL (8.4-10.2); CARBON DIOXIDE 19 mmol/L (22-30); CHLORIDE 112 mmol/L (98-107); GLUCOSE 143 mg/dL (75-110); POTASSIUM 3.6 mmol/L (3.6-5.0); SODIUM 140.2 mmol/L (137-145); TOTAL PROTEIN 5.5 g/dL (6.3-8.2)
[2018-07-12] MEDS: DIPHENHYDRAMINE HCL 50 MG/ML VIAL IV SCH ×4 (06:19→23:50)
[2018-07-12 06:47] LABS: ARTERIAL BLOOD BASE EXCESS -2.8 mmol/L; ARTERIAL BLOOD H2CO3 1.01 mmol/L (1.05-1.35); ARTERIAL BLOOD O2 SATURATION 98.1 % (94-98); ARTERIAL BLOOD PCO2 33.4 mmHg (35-45); ARTERIAL BLOOD PH 7.42 (7.35-7.45); ARTERIAL BLOOD PO2 109.4 mmHg (80-100); ARTERIAL BLOOD TOTAL CO2 22.1 mmol/L (23-27)
[2018-07-12 06:48] LABS: ARTERIAL BLOOD FIO2 40%
--- NOTE | 2018-07-12 08:26 | RADIOLOGY REPORT (SQ) ---
EXAM DESCRIPTION: CHEST SINGLE VIEW COMPLETED DATE/TIME: 07/12/2018 6:59 am REASON FOR STUDY: on vent COMPARISON: 07/11/2018. FINDINGS: Single-view chest AP portable semi-upright approximately 0643 hours in PACs. Endotracheal and nasogastric tubes down, appropriate. Dense opacity left base appears represent a combination of consolidation and volume loss and probably pleural fluid. This looks worse compared to prior. Right lung remains relatively clear. TECHNICAL DOCUMENTATION: JOB ID: [id number] Reading location - IP/workstation name: [email or web address]-
[2018-07-12] MEDS: PANTOPRAZOLE SODIUM 40 MG VIAL IV SCH ×2 (09:22→21:55)
[2018-07-12] MEDS: FAMOTIDINE INJ/PF 20 MG/2 ML SDV IV SCH ×2 (09:23→21:55)
--- NOTE | 2018-07-12 10:23 | PDOC PROGRESS REPORT ---
Subjective Progress Note for:: 07/12/18 Subjective:: The patient is resting comfortably on pressure support. He is not tachypneic. He is stable. Reason For Visit: ACUTE ANGIOEDEMA WITH AIRWAY OBSTRUCTION Physical Exam Vital Signs: Temp Pulse Resp BP Pulse Ox 97.7 F 65 13 135/78 H 97 07/12/18 08:00 07/12/18 08:00 07/12/18 08:00 07/12/18 08:00 07/12/18 08:13 Intake & Output 07/11/18 07/12/18 07/13/18 06:59 06:59 06:59 Intake Total 1957 98 Output Total 1010 275 Balance 947 -177 Weight 95.3 kg General appearance: PRESENT: no acute distress, well-developed, other - Still slightly sedated Head exam: PRESENT: normocephalic Ear exam: PRESENT: normal external ear exam Mouth exam: PRESENT: moist, tongue midline - Tongue appears to be back to normal size. Was unable to examine the inferior side of the tongue due to the endotracheal tube. Teeth exam: PRESENT: poor dentation Respiratory exam: PRESENT: clear to auscultation jhonathan, symmetrical, unlabored. ABSENT: accessory muscle use, rales, rhonchi, wheezes Cardiovascular exam: PRESENT: RRR, +S1, +S2 GI/Abdominal exam: PRESENT: normal bowel sounds, soft, other - Nasogastric tube in place. ABSENT: distended, tenderness Gentrourinary exam: PRESENT: indwelling catheter Extremities exam: ABSENT: pedal edema Neurological exam: PRESENT: other - Sedated Psychiatric exam: ABSENT: agitated Focused psych exam: ABSENT: restlessness Results Laboratory Results: 07/12/18 04:11 07/12/18 04:11 07/11/18 07/12/18 07/12/18 15:55 04:11 04:11 WBC 11.9 H RBC 2.90 L Hgb 10.6 L Hct 30.8 L MCV 106 H MCH 36.4 H MCHC 34.3 RDW 16.8 H Plt Count 98 L Seg Neutrophils % Not Reportable Lymphocytes % Not Reportable Monocytes % Not Reportable Eosinophils % Not Reportable Basophils % Not Reportable Absolute Neutrophils Not Reportable Absolute Lymphocytes Not Reportable Absolute Monocytes Not Reportable Absolute Eosinophils Not Reportable Absolute Basophils Not Reportable Carbonic Acid HCO3/H2CO3 Ratio ABG pH ABG pCO2 ABG pO2 ABG HCO3 ABG O2 Saturation ABG Base Excess FiO2 Sodium Potassium Chloride Carbon Dioxide Anion Gap BUN Creatinine Est GFR ( Amer) Est GFR (Non-Af Amer) Glucose Calcium Magnesium 1.9 Cancelled Total Bilirubin AST ALT Alkaline Phosphatase Total Protein Albumin 07/12/18 07/12/18 04:11 06:38 WBC RBC Hgb Hct MCV MCH MCHC RDW Plt Count Seg Neutrophils % Lymphocytes % Monocytes % Eosinophils % Basophils % Absolute Neutrophils Absolute Lymphocytes Absolute Monocytes Absolute Eosinophils Absolute Basophils Carbonic Acid 1.01 L HCO3/H2CO3 Ratio 20:1 ABG pH 7.42 ABG pCO2 33.4 L ABG pO2 109.4 H ABG HCO3 21.0 ABG O2 Saturation 98.1 H ABG Base Excess -2.8 FiO2 40% Sodium 140.2 Potassium 3.6 Chloride 112 H Carbon Dioxide 19 L Anion Gap 9 BUN 6 L Creatinine 0.56 Est GFR ( Amer) > 60 Est GFR (Non-Af Amer) > 60 Glucose 143 H Calcium 7.9 L Magnesium 1.8 Total Bilirubin 0.4 AST 23 ALT 24 Alkaline Phosphatase 58 Total Protein 5.5 L Albumin 2.9 L 07/09/18 07/09/18 07/10/18 22:55 22:55 05:04 Creatine Kinase 40 L 41 L CK-MB (CK-2) 0.52 Troponin I < 0.012 NT-Pro-B Natriuret Pep 07/10/18 07/10/18 07/10/18 05:04 11:08 11:08 Creatine Kinase 39 L CK-MB (CK-2) 0.52 0.39 Troponin I 0.015 < 0.012 NT-Pro-B Natriuret Pep 07/11/18 04:01 Creatine Kinase CK-MB (CK-2) Troponin I NT-Pro-B Natriuret Pep 621 Impressions: Head CT 07/09/18 23:33 IMPRESSION: Limited due to motion however no evidence for acute intracranial abnormality. Pansinusitis. TECHNICAL DOCUMENTATION: Quality ID # 436: Final reports with documentation of one or more dose reduction techniques (e.g., Automated exposure control, adjustment of the mA and/or kV according to patient size, use of iterative reconstruction technique) copyright 2011 [employer]- All Rights Reserved Assessment & Plan - Diagnosis (1) Acute respiratory failure Qualifiers: Respiratory failure complication: unspecified whether with hypoxia or hypercapnia Qualified Code(s): J96.00 - Acute respiratory failure, unspecified whether with hypoxia or hypercapnia Is this a current diagnosis for this admission?: Yes Plan: Patient is doing well on CPAP. I discussed the case with pulmonology. He will likely be extubated today. We will monitor him. If stable consider downgrade. Likely to be discharged tomorrow. He should avoid KARLOS inhibitors completely in the future. (2) Angioedema of intestine due to angiotensin converting enzyme inhibitor (KARLOS- I) Is this a current diagnosis for this admission?: Yes Plan: Responded nicely to H1 and H2 antihistamines as well as steroids. (3) Laceration of tongue Qualifiers: Encounter type: initial encounter Qualified Code(s): S01.512A - Laceration without foreign body of oral cavity, initial encounter Is this a current diagnosis for this admission?: Yes Plan: Will examine more closely when extubated with a decrease in tongue swelling the laceration should approximate nicely. There is not in blood trickling from his mouth. There is still some dark blood in the NG tube. This could be old. (4) Hypomagnesemia Is this a current diagnosis for this admission?: Yes Plan: Back in the normal range. - Time Time Spent with patient: 25-34 minutes Medications reviewed and adjusted accordingly: Yes Anticipated discharge: Home Within: within 72 hours
[2018-07-12] MEDS: POTASSI CL 20 MEQ/D5-1/2NS 1L 1,000 ML IV PRN ×2 (10:38→18:35)
[2018-07-13] MEDS: PROPOFOL 1,000 MG/100 ML INFUS..BTL IV PRN ×4 (01:26→17:32)
[2018-07-13] MEDS ORDERED: INSULIN LISPRO 100 UNIT/ML 3 ML VIAL SUBCUT ONE (02:30)
[2018-07-13] MEDS: ACETAMINOPHEN 650 MG SUPP.RECT PR PRN ×2 (02:59→17:18)
[2018-07-13] MEDS ORDERED: FENTANYL CITRATE INJ/PF 100 MCG/2 ML AMPUL ONE (03:55)
[2018-07-13] MEDS ORDERED: FENTANYL CITRATE INJ/PF 250 MCG/5 ML AMPULE IV ONE (04:15)
[2018-07-13 05:11] LABS: ABSOLUTE LYMPHOCYTES (AUTO) 0.7 10^3/uL (0.5-4.7); ABSOLUTE MONOCYTES (AUTO) 0.7 10^3/uL (0.1-1.4); ABSOLUTE NEUT (AUTO) 9.5 10^3/uL (1.7-8.2); BASOPHILS % (AUTO) 0.3 % (0-2); EOSINOPHILS % (AUTO) 0.2 % (0-6); HEMATOCRIT 34.6 % (37.9-51.0); HEMOGLOBIN 11.8 g/dL (13.5-17.0); MEAN CORPUSCULAR HEMOGLOBIN 36.3 pg (27.0-33.4); MEAN CORPUSCULAR HGB CONC 34.2 g/dL (32.0-36.0); MEAN CORPUSCULAR VOLUME 106 fl (80-97); MONOCYTES % (AUTO) 6.6 % (3-13); RED BLOOD COUNT 3.25 10^6/uL (4.35-5.55); RED CELL DISTRIBUTION WIDTH 17.2 % (11.5-14.0); SEGMENTED NEUTROPHILS % (AUTO) 86.9 % (42-78); TOTAL CELLS COUNTED % (AUTO) 100 %
[2018-07-13 05:28] LABS: ARTERIAL BLOOD BASE EXCESS -1.5 mmol/L; ARTERIAL BLOOD H2CO3 0.88 mmol/L (1.05-1.35); ARTERIAL BLOOD HCO3 21.1 mmol/L (20-24); ARTERIAL BLOOD O2 SATURATION 95.8 % (94-98); ARTERIAL BLOOD PCO2 29.3 mmHg (35-45); ARTERIAL BLOOD PH 7.48 (7.35-7.45); ARTERIAL BLOOD PO2 72.9 mmHg (80-100)
[2018-07-13 05:29] LABS: ARTERIAL BLOOD FIO2 40%
[2018-07-13] MEDS: DIPHENHYDRAMINE HCL 50 MG/ML VIAL IV SCH ×4 (05:29→23:47)
[2018-07-13] MEDS: MIDAZOLAM HCL 50 MG/100 ML RTUINJ IV PRN ×2 (05:31→23:36)
[2018-07-13 05:34] LABS: ALANINE AMINOTRANSFERASE 18 U/L (21-72); ALBUMIN 3.2 g/dL (3.5-5.0); ALKALINE PHOSPHATASE 60 U/L (38-126); ANION GAP 10 (5-19); ASPARTATE AMINO TRANSFERASE 29 U/L (17-59); BILIRUBIN,DIRECT 0.4 mg/dL (0.0-0.4); BILIRUBIN,TOTAL 0.6 mg/dL (0.2-1.3); BLOOD UREA NITROGEN 7 mg/dL (7-20); CALCIUM 8.3 mg/dL (8.4-10.2); CARBON DIOXIDE 22 mmol/L (22-30); CHLORIDE 110 mmol/L (98-107); GLUCOSE 84 mg/dL (75-110); POTASSIUM 3.5 mmol/L (3.6-5.0); SODIUM 142.3 mmol/L (137-145); TOTAL PROTEIN 5.9 g/dL (6.3-8.2)
[2018-07-13 06:00] LABS: PLATELET COUNT 77 10^3/uL (150-450)
[2018-07-13] MEDS: INSULIN LISPRO 100 UNIT/ML 3 ML VIAL SUBCUT SCH ×4 (06:21→23:35)
[2018-07-13] MEDS ORDERED: TRAMADOL HCL 50 MG TABLET PO PRN (08:08)
--- NOTE | 2018-07-13 08:18 | Progress Note ---
Provider Note Provider Note: I am not the patient's primary care physician patient has not been seen since 2012 he had a previous procedure at that time.
--- NOTE | 2018-07-13 08:36 | RADIOLOGY REPORT (SQ) ---
EXAM DESCRIPTION: CHEST SINGLE VIEW COMPLETED DATE/TIME: 07/13/2018 6:46 am REASON FOR STUDY: on vent COMPARISON: Chest films 07/12/2018, 07/11/2018, 07/09/2018 EXAM PARAMETERS: NUMBER OF VIEWS: One view. TECHNIQUE: Single frontal radiographic view of the chest acquired. RADIATION DOSE: NA LIMITATIONS: None. FINDINGS: LUNGS AND PLEURA: Near complete collapse of the left lung is present, with shift of medias tinal structures into the left hemithorax. Right lung is hyperinflated but clear. No pneumothorax. MEDIASTINUM AND HILAR STRUCTURES: Mediastinum shifted into the left chest. HEART AND VASCULAR STRUCTURES: Cardiac silhouette obscured by collapsed left lung BONES: No acute findings. HARDWARE: None in the chest. OTHER: No other significant finding. IMPRESSION: Near complete collapse of the left lung is present with shift of mediastinal structures into the left chest. This is new compared to previous studies COMMENT: Report called to the patient's nurse in ICU at the time of dictation TECHNICAL DOCUMENTATION: JOB ID: [id number] [employer]- All Rights Reserved Reading location - IP/workstation name: [email or web address]
--- NOTE | 2018-07-13 09:43 | PDOC PROGRESS REPORT ---
Subjective Progress Note for:: 07/13/18 Subjective:: Patient still intubated chest x-ray done this morning shows complete wiping out of the left side of the chest most likely secondary to mucous plug. I discussed with Dr. Colunga is going to do the bronchoscopy this morning. We are going to do the follow-up chest x-ray after that. And temperature is 102.6. To start him on IV antibiotic therapy septic work is going to be ordered. Reason For Visit: ACUTE ANGIOEDEMA WITH AIRWAY OBSTRUCTION Physical Exam Vital Signs: Temp Pulse Resp BP Pulse Ox 102.7 F H 87 16 158/74 H 97 07/13/18 05:04 07/13/18 05:00 07/13/18 07:01 07/13/18 07:01 07/13/18 07:01 Intake & Output 07/12/18 07/13/18 07/14/18 06:59 06:59 06:59 Intake Total 1957 2362 111 Output Total 1010 2020 Balance 947 342 111 Weight 95.3 kg 92.4 kg General appearance: PRESENT: other - Patient is still intubated under sedation. Head exam: PRESENT: atraumatic Eye exam: PRESENT: PERRLA Mouth exam: PRESENT: moist, tongue midline Neck exam: ABSENT: carotid bruit, JVD, lymphadenopathy, thyromegaly Respiratory exam: PRESENT: other - Absent breath sounds on the left side of the chest. Cardiovascular exam: PRESENT: RRR. ABSENT: diastolic murmur, rubs, systolic murmur GI/Abdominal exam: PRESENT: normal bowel sounds, soft. ABSENT: distended, guarding, mass, organolmegaly, rebound, tenderness Extremities exam: PRESENT: full ROM. ABSENT: calf tenderness, clubbing, pedal edema Neurological exam: PRESENT: other - Patient is intubated under sedation unable to assess the neurological status. Results Laboratory Results: 07/13/18 04:50 07/13/18 04:50 07/13/18 07/13/18 07/13/18 04:50 04:50 05:00 WBC 11.0 H RBC 3.25 L Hgb 11.8 L Hct 34.6 L MCV 106 H MCH 36.3 H MCHC 34.2 RDW 17.2 H Plt Count 77 L Seg Neutrophils % 86.9 H Lymphocytes % 6.0 L Monocytes % 6.6 Eosinophils % 0.2 Basophils % 0.3 Absolute Neutrophils 9.5 H Absolute Lymphocytes 0.7 Absolute Monocytes 0.7 Absolute Eosinophils 0.0 Absolute Basophils 0.0 Carbonic Acid 0.88 L HCO3/H2CO3 Ratio 23:1 ABG pH 7.48 H ABG pCO2 29.3 L ABG pO2 72.9 L ABG HCO3 21.1 ABG O2 Saturation 95.8 ABG Base Excess -1.5 FiO2 40% Sodium 142.3 Potassium 3.5 L Chloride 110 H Carbon Dioxide 22 Anion Gap 10 BUN 7 Creatinine 0.72 Est GFR ( Amer) > 60 Est GFR (Non-Af Amer) > 60 Glucose 84 Calcium 8.3 L Magnesium 1.7 Total Bilirubin 0.6 AST 29 ALT 18 L Alkaline Phosphatase 60 Total Protein 5.9 L Albumin 3.2 L 07/09/18 07/09/18 07/10/18 22:55 22:55 05:04 Creatine Kinase 40 L 41 L CK-MB (CK-2) 0.52 Troponin I < 0.012 NT-Pro-B Natriuret Pep 07/10/18 07/10/18 07/10/18 05:04 11:08 11:08 Creatine Kinase 39 L CK-MB (CK-2) 0.52 0.39 Troponin I 0.015 < 0.012 NT-Pro-B Natriuret Pep 07/11/18 04:01 Creatine Kinase CK-MB (CK-2) Troponin I NT-Pro-B Natriuret Pep 621 Impressions: Head CT 07/09/18 23:33 IMPRESSION: Limited due to motion however no evidence for acute intracranial abnormality. Pansinusitis. TECHNICAL DOCUMENTATION: Quality ID # 436: Final reports with documentation of one or more dose reduction techniques (e.g., Automated exposure control, adjustment of the mA and/or kV according to patient size, use of iterative reconstruction technique) copyright 2011 [employer]- All Rights Reserved Chest X-Ray 07/13/18 06:00 IMPRESSION: Near complete collapse of the left lung is present with shift of mediastinal structures into the left chest. This is new compared to previous studies Assessment & Plan - Diagnosis (1) Acute respiratory failure Qualifiers: Respiratory failure complication: unspecified whether with hypoxia or hypercapnia Qualified Code(s): J96.00 - Acute respiratory failure, unspecified whether with hypoxia or hypercapnia Is this a current diagnosis for this admission?: Yes Plan: Patient is doing well on CPAP. I discussed the case with pulmonology. He will likely be extubated today. We will monitor him. If stable consider downgrade. Likely to be discharged tomorrow. He should avoid KARLOS inhibitors completely in the future. 07/13/2018 it is on mechanical ventilation chest x-ray done this morning shows complete collapse of the left lung. Probably secondary to mucous plug. Dr. Colunga is going to do the bronchoscopy today. Patient is on mechanical ventilation with PEEP of 5 and SIMV of 10, tidal volume of 540% oxygen. Pulse ox is 98%. Patient has a fever of 102.7 today. Requesting for blood cultures urine cultures starting on IV Zosyn and IV vancomycin. To adjust the dose of vancomycin based on the pharmacy recommendations. Actiq acid level is going to be requested. (2) Angio-edema Qualifiers: Encounter type: initial encounter Qualified Code(s): T78.3XXA - Angione urotic edema, initial encounter Is this a current diagnosis for this admission?: Yes Plan: Responded nicely to H1 and H2 antihistamines as well as steroids. 07/13/2018-patient is admitted at angioedema most likely secondary to KARLOS inhibitors. Those medications are on hold. Presently he is on famotidine and Protonix. Plan is to continue the present management. (3) Laceration of tongue Qualifiers: Encounter type: initial encounter Qualified Code(s): S01.512A - Laceration without foreign body of oral cavity, initial encounter Is this a current diagnosis for this admission?: Yes Plan: Will examine more closely when extubated with a decrease in tongue swelling the laceration should approximate nicely. There is not in blood trickling from his mouth. There is still some dark blood in the NG tube. This could be old. 07/13/2018-patient has a laceration of the tongue. Patient's hemoglobin is 11.8 stable. No bleeding was noticed by the staff since last night. We are going to reevaluate the laceration of the tongue and swelling once the patient is extubated. (4) Collapse of left lung Is this a current diagnosis for this admission?: Yes Plan: 07/13/2018-chest x-ray this morning shows complete collapse of the left lung most likely secondary to mucous plug. Dr. Colunga was here he is going to do the bronchoscopy today. Patient is also running fever of 102.7 did a blood cultures urine cultures lactic acid levels started on IV Zosyn and IV vancomycin. (5) Sepsis Is this a current diagnosis for this admission?: Yes Plan: 07/13/2018-patient is running a fever of 102 from this morning. To rule out sepsis. Lactic acid levels were requested. Blood cultures urine cultures were requested. Started on IV vancomycin IV Zosyn. Plan is to continue to follow the patient regular basis. labs Ordered for Tomorrow. (6) Hypokalemia Is this a current diagnosis for this admission?: Yes Plan: 07/13/2018-patient potassium level is 3.5. Patient is getting potassium supplementation. Hypokalemia may be secondary to n.p.o. status. - Time Time Spent with patient: 25-34 minutes Smoking Cessation Education: 3 to 10 minutes Medications reviewed and adjusted accordingly: Yes Anticipated discharge: Home
[2018-07-13] MEDS ORDERED: PIPERACILLIN/TAZOBACTAM 3.375 GM VIAL IV SCH (09:45)
[2018-07-13] MEDS: FAMOTIDINE INJ/PF 20 MG/2 ML SDV IV SCH ×2 (09:52→21:30)
[2018-07-13] MEDS: POTASSIUM CHLORIDE 10 MEQ CAPSULE.ER PO SCH (09:53)
[2018-07-13] MEDS ORDERED: ALLOPURINOL 300 MG TABLET PO SCH (10:00)
[2018-07-13] MEDS ORDERED: CALCIUM CITRATE 250 MG PO SCH (10:00)
[2018-07-13] MEDS ORDERED: NADOLOL 80 MG PO SCH (10:00)
[2018-07-13] MEDS ORDERED: NADOLOL 40 MG TABLET PO SCH (10:00)
[2018-07-13] MEDS ORDERED: VANCOMYCIN HCL INJ 1000 MG VIAL IV SCH (10:00)
[2018-07-13] MEDS: PANTOPRAZOLE SODIUM 40 MG VIAL IV SCH ×2 (10:15→21:31)
[2018-07-13] MEDS ORDERED: LIDOCAINE 1% INJ-PF (10 MG/ML) 30 ML SDV ONE (10:39)
[2018-07-13] MEDS ORDERED: VANCOMYCIN HCL 1,000 MG in DEXTROSE 5%-WATER 250 ML IV ONE (11:00)
--- NOTE | 2018-07-13 12:10 | RADIOLOGY REPORT (SQ) ---
EXAM DESCRIPTION: CHEST SINGLE VIEW COMPLETED DATE/TIME: 07/13/2018 11:37 am REASON FOR STUDY: Post Bronchoscopy and Central Line Placement COMPARISON: None. EXAM PARAMETERS: NUMBER OF VIEWS: One view. TECHNIQUE: Single frontal radiographic view of the chest acquired. RADIATION DOSE: NA LIMITATIONS: None. FINDINGS: LUNGS AND PLEURA: Status post bronchoscopy. No discrete evidence for pneumothorax. As o n the prior examination, shift of the cardiomediastinal structures to the left of the midline. Almos t complete homogeneous opacification of the left hemithorax, suggesting collapse. Compensatory hyperinflation of the right lung. MEDIASTINUM AND HILAR STRUCTURES: No masses. Contour normal. HEART AND VASCULAR STRUCTURES: Cardiac silhouette obscured by the pleuroparenchymal changes on the l eft. BONES: No acute findings. HARDWARE: Interval placement right internal jugular central venous line, tip in the region of the langston perior vena cava-right atrial junction. Remaining tubes are unchanged in position and location. OTHER: No other significant finding. IMPRESSION: 1. Status post bronchoscopy and right internal jugular line centrally venous placement. No evidence of discrete pneumothorax. 2. No significant interval change in the appearance of the almost complete homogeneous opacification of the left hemithorax, suggesting collapse. TECHNICAL DOCUMENTATION: JOB ID: [id number] [employer]- All Rights Reserved Reading location - IP/workstation name: [email or web address]
[2018-07-13] MEDS: POTASSI CL 20 MEQ/D5-1/2NS 1L 1,000 ML IV PRN ×2 (12:35→23:35)
[2018-07-13] MEDS: PIPERACILLIN SODIUM/TAZOBACTAM 3.375 GM in NORMAL SALINE 100 ML IV SCH ×3 (12:48→23:47)
[2018-07-13 13:05] LABS: FLUID APPEARANCE CLOUDY; FLUID COLOR RED; FLUID SOURCE LUNG; FLUID TYPE BRONCHIAL WASH; FLUID VISCOSITY LIQUID
[2018-07-13] MEDS: VANCOMYCIN HCL 1,000 MG in DEXTROSE 5%-WATER 250 ML IV SCH (17:09)
[2018-07-13] MEDS ORDERED: ATORVASTATIN CALCIUM 20 MG TABLET PO SCH (22:00)
[2018-07-14] MEDS: PROPOFOL 1,000 MG/100 ML INFUS..BTL IV PRN ×6 (00:25→23:23)
[2018-07-14] MEDS: VANCOMYCIN HCL 1,000 MG in DEXTROSE 5%-WATER 250 ML IV SCH ×2 (01:06→10:19)
[2018-07-14] MEDS: PIPERACILLIN SODIUM/TAZOBACTAM 3.375 GM in NORMAL SALINE 100 ML IV SCH ×4 (05:18→23:23)
[2018-07-14] MEDS: DIPHENHYDRAMINE HCL 50 MG/ML VIAL IV SCH ×4 (05:18→23:23)
[2018-07-14 05:44] LABS: ANION GAP 8 (5-19); BLOOD UREA NITROGEN 6 mg/dL (7-20); CALCIUM 7.6 mg/dL (8.4-10.2); CARBON DIOXIDE 22 mmol/L (22-30); CHLORIDE 106 mmol/L (98-107); GLUCOSE 101 mg/dL (75-110); POTASSIUM 3.2 mmol/L (3.6-5.0)
[2018-07-14] MEDS: INSULIN LISPRO 100 UNIT/ML 3 ML VIAL SUBCUT SCH ×4 (06:13→23:24)
[2018-07-14 06:17] LABS: ARTERIAL BLOOD BASE EXCESS -0.7 mmol/L; ARTERIAL BLOOD H2CO3 0.89 mmol/L (1.05-1.35); ARTERIAL BLOOD HCO3 21.8 mmol/L (20-24); ARTERIAL BLOOD O2 SATURATION 91.8 % (94-98); ARTERIAL BLOOD PCO2 29.5 mmHg (35-45); ARTERIAL BLOOD PH 7.49 (7.35-7.45); ARTERIAL BLOOD PO2 56.3 mmHg (80-100); ARTERIAL BLOOD TOTAL CO2 22.7 mmol/L (23-27)
[2018-07-14 06:19] LABS: ARTERIAL BLOOD FIO2 40%
[2018-07-14] MEDS: POTASSIUM CHLORIDE 20 MEQ/50 ML RTU IV SCH ×2 (06:43→08:08)
[2018-07-14] MEDS: POTASSI CL 20 MEQ/D5-1/2NS 1L 1,000 ML IV PRN ×2 (08:08→18:30)
[2018-07-14] MEDS ORDERED: POTASSI CL 20 MEQ/50 ML RIDER 20 MEQ/50 ML RTUPB IV SCH (09:00)
--- NOTE | 2018-07-14 09:15 | RADIOLOGY REPORT (SQ) ---
EXAM DESCRIPTION: CHEST SINGLE VIEW COMPLETED DATE/TIME: 07/14/2018 8:55 am REASON FOR STUDY: hypoxia COMPARISON: 07/13/2018 EXAM PARAMETERS: NUMBER OF VIEWS: One view. TECHNIQUE: Single frontal radiographic view of the chest acquired. RADIATION DOSE: NA LIMITATIONS: None. FINDINGS: LUNGS AND PLEURA: There is slight interval improvement of aeration of the left lung, with persistent pleural effusion and consolidation of the majority of the left lung. The right lung is no rmally aerated. MEDIASTINUM AND HILAR STRUCTURES: No masses. Contour normal. HEART AND VASCULAR STRUCTURES: Heart normal in size. Normal vasculature. BONES: No acute findings. HARDWARE: None in the chest. OTHER: Stable support apparatus. IMPRESSION: There is slight interval improvement of aeration of the left lung, with persistent pleur al effusion and consolidation of the majority of the left lung. The right lung is normally aerated. TECHNICAL DOCUMENTATION: JOB ID: [id number] [employer]- All Rights Reserved Reading location - IP/workstation name: [email or web address]
[2018-07-14] MEDS ORDERED: LEVALBUTEROL HCL NEB 1.25 MG/3 ML AMPUL NEB PRN (09:55)
[2018-07-14] MEDS ORDERED: TRAMADOL HCL 50 MG TABLET NG PRN (10:00)
[2018-07-14] MEDS: MAGNESIUM SULFATE/D5W 1 GM/100 ML RTUPB IV SCH ×2 (10:15→11:33)
[2018-07-14] MEDS: POTASSIUM CHLORIDE 20 MEQ/15 ML UDCUP NG SCH (10:15)
[2018-07-14] MEDS: NADOLOL 40 MG TABLET NG SCH (10:16)
[2018-07-14] MEDS: FAMOTIDINE INJ/PF 20 MG/2 ML SDV IV SCH ×2 (10:18→21:04)
[2018-07-14] MEDS: PANTOPRAZOLE SODIUM 40 MG VIAL IV SCH ×2 (10:18→21:04)
[2018-07-14] MEDS: ALLOPURINOL 300 MG TABLET NG SCH (10:19)
[2018-07-14 10:31] LABS: VANCOMYCIN,TROUGH 9.2 ug/mL (5.0-20.0)
[2018-07-14] MEDS: IPRATROPIUM/ALBUTEROL 0.5-2.5 MG/3 ML AMPUL NEB SCH ×3 (12:16→20:31)
[2018-07-14] MEDS: ACETYLCYSTEINE 20% SOLN 800 MG/4 ML VIAL.NEB NEB SCH ×2 (12:16→20:32)
--- NOTE | 2018-07-14 13:18 | PDOC PROGRESS REPORT ---
Subjective Progress Note for:: 07/14/18 Subjective:: This is a 57 yr old male with HTN on lisinopril who presented with tongue and mouth swelling who decompensated and was intubated in the ER due to angioedema. He was admitted to the ICU and was initially on steroids. On 07/12, he developed a complete left lung whiteout possibly form a mucus plug. He underwent bronchoscopy on 07/13. No acute event overnight. He is currently sedated and intubated on minimal vent settings. Repeat chest x-ray shows improvement in aeration of the left lung. Reason For Visit: ACUTE ANGIOEDEMA WITH AIRWAY OBSTRUCTION Physical Exam Vital Signs: Temp Pulse Resp BP Pulse Ox 100.6 F H 79 25 H 134/78 H 98 07/14/18 08:00 07/14/18 10:00 07/14/18 10:00 07/14/18 10:00 07/14/18 10:00 Intake & Output 07/13/18 07/14/18 07/15/18 06:59 06:59 06:59 Intake Total 3362 2332 1035 Output Total 2020 1830 650 Balance 1342 502 385 Weight 203 lb 11.314 oz 203 lb 4.259 oz General appearance: PRESENT: obese, other - intubated, sedated Head exam: PRESENT: atraumatic, normocephalic Eye exam: PRESENT: conjunctiva pink, EOMI, PERRLA. ABSENT: scleral icterus Ear exam: PRESENT: normal external ear exam Mouth exam: PRESENT: moist, tongue midline Neck exam: ABSENT: carotid bruit, JVD, lymphadenopathy, thyromegaly Respiratory exam: PRESENT: decreased breath sounds - left base, rhonchi. ABSENT: rales, wheezes Pulses: PRESENT: normal dorsalis pedis pul GI/Abdominal exam: PRESENT: normal bowel sounds, soft. ABSENT: distended, guarding, mass, organolmegaly, rebound, tenderness Rectal exam: PRESENT: deferred Neurological exam: PRESENT: other - intubtaed, sedated Results Laboratory Results: 07/13/18 04:50 07/14/18 04:52 07/13/18 07/13/18 07/14/18 10:45 12:16 04:52 Carbonic Acid HCO3/H2CO3 Ratio ABG pH ABG pCO2 ABG pO2 ABG HCO3 ABG O2 Saturation ABG Base Excess FiO2 Sodium 136.0 L Potassium 3.2 L Chloride 106 Carbon Dioxide 22 Anion Gap 8 BUN 6 L Creatinine 0.56 Est GFR ( Amer) > 60 Est GFR (Non-Af Amer) > 60 Glucose 101 Lactic Acid 1.6 Calcium 7.6 L Magnesium 1.4 L Fluid Type BRONCHIAL WASH Fluid Source LUNG Fluid Color RED Fluid Appearance CLOUDY Fluid Viscosity LIQUID Fluid WBC 4050 Fluid RBC 68608 07/14/18 06:03 Carbonic Acid 0.89 L HCO3/H2CO3 Ratio 24:1 ABG pH 7.49 H ABG pCO2 29.5 L ABG pO2 56.3 L ABG HCO3 21.8 ABG O2 Saturation 91.8 L ABG Base Excess -0.7 FiO2 40% Sodium Potassium Chloride Carbon Dioxide Anion Gap BUN Creatinine Est GFR ( Amer) Est GFR (Non-Af Amer) Glucose Lactic Acid Calcium Magnesium Fluid Type Fluid Source Fluid Color Fluid Appearance Fluid Viscosity Fluid WBC Fluid RBC 07/13/18 10:45 Bronchial Washings Gram Stain - Final 07/09/18 07/09/18 07/10/18 22:55 22:55 05:04 Creatine Kinase 40 L 41 L CK-MB (CK-2) 0.52 Troponin I < 0.012 NT-Pro-B Natriuret Pep 07/10/18 07/10/18 07/10/18 05:04 11:08 11:08 Creatine Kinase 39 L CK-MB (CK-2) 0.52 0.39 Troponin I 0.015 < 0.012 NT-Pro-B Natriuret Pep 07/11/18 04:01 Creatine Kinase CK-MB (CK-2) Troponin I NT-Pro-B Natriuret Pep 621 Impressions: Head CT 07/09/18 23:33 IMPRESSION: Limited due to motion however no evidence for acute intracranial abnormality. Pansinusitis. TECHNICAL DOCUMENTATION: Quality ID # 436: Final reports with documentation of one or more dose reduction techniques (e.g., Automated exposure control, adjustment of the mA and/or kV according to patient size, use of iterative reconstruction technique) copyright 2011 [employer]- All Rights Reserved Chest X-Ray 07/14/18 08:28 IMPRESSION: There is slight interval improvement of aeration of the left lung, with persistent pleural effusion and consolidation of the majority of the left lung. The right lung is normally aerated. Assessment & Plan - Diagnosis (1) Acute respiratory failure with hypoxia Is this a current diagnosis for this admission?: Yes Plan: Secondary to angioedema from lisinopril. He received 2 days of solumedrol. Continue diphenhydramine. Will continue steroids for now. Will continue with weaning trials. (2) Angio-edema Qualifiers: Encounter type: initial encounter Qualified Code(s): T78.3XXA - Angioneurotic edema, initial encounter Is this a current diagnosis for this admission?: Yes Plan: As per number 1. (3) Collapse of left lung Is this a current diagnosis for this admission?: Yes Plan: S/P bronchoscopy on 07/14. Cultures sent from bronch washings. Continue IV antibiotics for now. Repeat chest x-ray shows some improvement in the aeration of the left lung. (4) Hypokalemia Is this a current diagnosis for this admission?: Yes Plan: Getting replacement per protocol. (5) Hypomagnesemia Is this a current diagnosis for this admission?: Yes Plan: Getting replacement per protocol. - Time Time Spent with patient: 25-34 minutes
[2018-07-14] MEDS: MIDAZOLAM HCL 50 MG/100 ML RTUINJ IV PRN (16:17)
[2018-07-14] MEDS: METHYLPREDNISOLONE INJ 40 MG/1 ML SDV IV SCH (16:28)
[2018-07-14 17:39] LABS: ANION GAP 9 (5-19); BLOOD UREA NITROGEN 6 mg/dL (7-20); CALCIUM 7.7 mg/dL (8.4-10.2); CARBON DIOXIDE 20 mmol/L (22-30); CHLORIDE 106 mmol/L (98-107); GLUCOSE 121 mg/dL (75-110); POTASSIUM 3.7 mmol/L (3.6-5.0); SODIUM 134.5 mmol/L (137-145)
[2018-07-14] MEDS: VANCOMYCIN HCL 1,500 MG in DEXTROSE 5%-WATER 250 ML IV SCH (18:21)
[2018-07-14] MEDS: POTASSIUM CHLORIDE 10 MEQ CAPSULE.ER PO SCH (19:45)
[2018-07-14] MEDS: ATORVASTATIN CALCIUM 20 MG TABLET NG SCH (21:33)
[2018-07-15] MEDS: VANCOMYCIN HCL 1,500 MG in DEXTROSE 5%-WATER 250 ML IV SCH ×3 (00:59→17:47)
[2018-07-15] MEDS: IPRATROPIUM/ALBUTEROL 0.5-2.5 MG/3 ML AMPUL NEB SCH ×4 (01:25→19:20)
[2018-07-15] MEDS: PROPOFOL 1,000 MG/100 ML INFUS..BTL IV PRN ×7 (03:03→23:58)
[2018-07-15 04:09] LABS: ARTERIAL BLOOD BASE EXCESS -3.2 mmol/L; ARTERIAL BLOOD H2CO3 0.96 mmol/L (1.05-1.35); ARTERIAL BLOOD HCO3 20.4 mmol/L (20-24); ARTERIAL BLOOD O2 SATURATION 96.3 % (94-98); ARTERIAL BLOOD PCO2 31.9 mmHg (35-45); ARTERIAL BLOOD PH 7.42 (7.35-7.45); ARTERIAL BLOOD PO2 81.1 mmHg (80-100); ARTERIAL BLOOD TOTAL CO2 21.4 mmol/L (23-27)
[2018-07-15 04:10] LABS: ARTERIAL BLOOD FIO2 40%
[2018-07-15 04:16] LABS: HEMATOCRIT 28.9 % (37.9-51.0); HEMOGLOBIN 9.9 g/dL (13.5-17.0); MEAN CORPUSCULAR HGB CONC 34.1 g/dL (32.0-36.0); MEAN CORPUSCULAR VOLUME 105 fl (80-97); RED BLOOD COUNT 2.75 10^6/uL (4.35-5.55); RED CELL DISTRIBUTION WIDTH 17.1 % (11.5-14.0); WHITE BLOOD COUNT 16.4 10^3/uL (4.0-10.5)
[2018-07-15 04:29] LABS: BLOOD UREA NITROGEN 9 mg/dL (7-20); CALCIUM 7.3 mg/dL (8.4-10.2); CARBON DIOXIDE 19 mmol/L (22-30); CHLORIDE 110 mmol/L (98-107); GLUCOSE 232 mg/dL (75-110); SODIUM 133.3 mmol/L (137-145)
[2018-07-15 04:47] LABS: PLATELET COUNT 74 10^3/uL (150-450)
[2018-07-15 04:50] LABS: ABSOLUTE LYMPHOCYTES# (MANUAL) 0.3 10^3/uL (0.5-4.7); ABSOLUTE MONOCYTES # (MANUAL) 0.5 10^3/uL (0.1-1.4); ABSOLUTE NEUTROPHILS# (MANUAL) 15.6 10^3/uL (1.7-8.2); BAND NEUTROPHILS % (MANUAL) 1 % (3-5); BASOPHILS % (MANUAL) 0 % (0-2); EOSINOPHILS % (MANUAL) 0 % (0-6); HYPOCHROMASIA 1+; LYMPHOCYTES % (MANUAL) 2 % (13-45); MONOCYTES % (MANUAL) 3 % (3-13); POLYCHROMASIA 1+; SEGMENTED NEUTROPHILS % (MAN) 94 % (42-78); TOTAL CELLS COUNTED 100
[2018-07-15 04:51] LABS: ANISOCYTOSIS 1+; PLATELET COMMENT ADEQUATE; ROULEAUX 1+
[2018-07-15 05:20] LABS: ANION GAP 6 (5-19)
[2018-07-15] MEDS: PIPERACILLIN SODIUM/TAZOBACTAM 3.375 GM in NORMAL SALINE 100 ML IV SCH ×4 (05:29→23:58)
[2018-07-15] MEDS: INSULIN LISPRO 100 UNIT/ML 3 ML VIAL SUBCUT SCH ×4 (05:30→23:57)
[2018-07-15] MEDS: DIPHENHYDRAMINE HCL 50 MG/ML VIAL IV SCH ×4 (05:30→23:57)
[2018-07-15] MEDS: POTASSI CL 20 MEQ/D5-1/2NS 1L 1,000 ML IV PRN ×2 (05:30→16:42)
[2018-07-15] MEDS: ACETYLCYSTEINE 20% SOLN 800 MG/4 ML VIAL.NEB NEB SCH ×2 (08:14→19:19)
--- NOTE | 2018-07-15 08:26 | RADIOLOGY REPORT (SQ) ---
EXAM DESCRIPTION: CHEST SINGLE VIEW COMPLETED DATE/TIME: 07/15/2018 6:16 am REASON FOR STUDY: resp failure COMPARISON: 07/14/2018. EXAM PARAMETERS: NUMBER OF VIEWS: One view. TECHNIQUE: Single frontal radiographic view of the chest acquired. RADIATION DOSE: NA LIMITATIONS: None. FINDINGS: LUNGS AND PLEURA: Again seen is volume loss on the left side with persistent consolidation and pleural effusion. There is slight improved aeration. Right lung relatively clear other than fa int density in the medial right base. MEDIASTINUM AND HILAR STRUCTURES: No masses. Contour normal. HEART AND VASCULAR STRUCTURES: Heart normal in size. Normal vasculature. BONES: No acute findings. HARDWARE: Stable endotracheal tube, nasogastric tube, and central line. OTHER: No other significant finding. IMPRESSION: SLIGHT IMPROVED AERATION IN THE LEFT LUNG. TECHNICAL DOCUMENTATION: JOB ID: [id number] [employer]- All Rights Reserved Reading location - IP/workstation name: [email or web address]
[2018-07-15] MEDS: FAMOTIDINE INJ/PF 20 MG/2 ML SDV IV SCH ×2 (10:18→21:37)
[2018-07-15] MEDS: NADOLOL 40 MG TABLET NG SCH (10:19)
[2018-07-15] MEDS: ALLOPURINOL 300 MG TABLET NG SCH (10:19)
[2018-07-15] MEDS: METHYLPREDNISOLONE INJ 40 MG/1 ML SDV IV SCH (10:19)
[2018-07-15] MEDS: POTASSIUM CHLORIDE 20 MEQ/15 ML UDCUP NG SCH (10:19)
[2018-07-15] MEDS: PANTOPRAZOLE SODIUM 40 MG VIAL IV SCH ×2 (10:20→21:37)
--- NOTE | 2018-07-15 12:29 | RADIOLOGY REPORT (SQ) ---
EXAM DESCRIPTION: U/S THYROID/SFT TISS HD NECK COMPLETED DATE/TIME: 07/15/2018 12:04 pm REASON FOR STUDY: neck mass? COMPARISON: None. TECHNIQUE: Dynamic and static grayscale images acquired of the localized site of clinical concern an d recorded on PACS. Additional selected color Doppler and spectral images recorded. SITE OF CONCERN: Right side of the neck. LIMITATIONS: The study is limited due to presence of the bandage. The patient is in ICU patient on the ventilator. FINDINGS: There is echogenic soft tissue in the region of concern. Difficult to differentiate this from possible thyroid tissue. No evidence of abscess or fluid collection. IMPRESSION: LIMITED STUDY. ECHOGENIC SOFT TISSUE, INDETERMINATE, WITH NO EVIDENCE OF ABSCESS OR FLU ID COLLECTION. THE PATIENT IS SCHEDULED FOR CT SCAN OF THE SOFT TISSUES OF THE NECK. TECHNICAL DOCUMENTATION: JOB ID: [id number] [employer]- All Rights Reserved Reading location - IP/workstation name: [email or web address]
[2018-07-15] MEDS: MIDAZOLAM HCL 50 MG/100 ML RTUINJ IV PRN (12:55)
--- NOTE | 2018-07-15 13:37 | PDOC PROGRESS REPORT ---
Subjective Progress Note for:: 07/15/18 Subjective:: This is a 57 yr old male with HTN on lisinopril who presented with tongue and mouth swelling who decompensated and was intubated in the ER due to angioedema. He was admitted to the ICU and was initially on steroids. On 07/12, he developed a complete left lung whiteout possibly form a mucus plug. He underwent bronchoscopy on 07/13. 07/14: He is currently sedated and intubated on minimal vent settings. Repeat chest x-ray shows improvement in aeration of the left lung. 07/15: No acute event overnight. Thin secretions from ET. He is saturating well on minimal vent settings. Possible repeat bronch today by pulmonology. Reason For Visit: ACUTE ANGIOEDEMA WITH AIRWAY OBSTRUCTION Physical Exam Vital Signs: Temp Pulse Resp BP Pulse Ox 95.1 F L 57 L 15 133/70 H 95 07/15/18 12:00 07/15/18 12:00 07/15/18 12:00 07/15/18 12:00 07/15/18 12:00 Intake & Output 07/14/18 07/15/18 07/16/18 06:59 06:59 06:59 Intake Total 2432 5054 650 Output Total 1830 3510 1450 Balance 602 1544 -800 Weight 203 lb 4.259 oz 205 lb 4.006 oz General appearance: PRESENT: other - intubated, sedated Head exam: PRESENT: atraumatic, normocephalic Eye exam: PRESENT: conjunctiva pink, EOMI, PERRLA. ABSENT: scleral icterus Ear exam: PRESENT: normal external ear exam Mouth exam: PRESENT: moist, tongue midline Neck exam: PRESENT: other - anterior neck mass. ABSENT: carotid bruit, JVD, lymphadenopathy, thyromegaly Respiratory exam: PRESENT: decreased breath sounds - left base, rhonchi. ABSENT: rales, wheezes Cardiovascular exam: PRESENT: RRR. ABSENT: diastolic murmur, rubs, systolic murmur GI/Abdominal exam: PRESENT: normal bowel sounds, soft. ABSENT: distended, guarding, mass, organolmegaly, rebound, tenderness Rectal exam: PRESENT: deferred Neurological exam: PRESENT: other - intubated, sedated Results Laboratory Results: 07/15/18 03:56 07/15/18 03:56 07/14/18 07/15/18 07/15/18 17:10 03:56 03:56 WBC RBC Hgb Hct MCV MCH MCHC RDW Plt Count Seg Neutrophils % Lymphocytes % Monocytes % Eosinophils % Basophils % Absolute Neutrophils Absolute Lymphocytes Absolute Monocytes Absolute Eosinophils Absolute Basophils Carbonic Acid 0.96 L HCO3/H2CO3 Ratio 21:1 ABG pH 7.42 ABG pCO2 31.9 L ABG pO2 81.1 ABG HCO3 20.4 ABG O2 Saturation 96.3 ABG Base Excess -3.2 FiO2 40% Sodium 134.5 L 133.3 L Potassium 3.7 4.0 Chloride 106 110 H Carbon Dioxide 20 L 19 L Anion Gap 9 6 BUN 6 L 9 Creatinine 0.58 0.58 Est GFR ( Amer) > 60 > 60 Est GFR (Non-Af Amer) > 60 > 60 Glucose 121 H 232 H Calcium 7.7 L 7.3 L Magnesium 2.0 2.1 07/15/18 03:56 WBC 16.4 H RBC 2.75 L Hgb 9.9 L Hct 28.9 L MCV 105 H MCH 36.0 H MCHC 34.1 RDW 17.1 H Plt Count 74 L Seg Neutrophils % Not Reportable Lymphocytes % Not Reportable Monocytes % Not Reportable Eosinophils % Not Reportable Basophils % Not Reportable Absolute Neutrophils Not Reportable Absolute Lymphocytes Not Reportable Absolute Monocytes Not Reportable Absolute Eosinophils Not Reportable Absolute Basophils Not Reportable Carbonic Acid HCO3/H2CO3 Ratio ABG pH ABG pCO2 ABG pO2 ABG HCO3 ABG O2 Saturation ABG Base Excess FiO2 Sodium Potassium Chloride Carbon Dioxide Anion Gap BUN Creatinine Est GFR ( Amer) Est GFR (Non-Af Amer) Glucose Calcium Magnesium 07/13/18 10:45 Bronchial Washings Gram Stain - Final 07/13/18 10:45 Bronchial Washings Bronchial Washings Culture - Final Staphylococcus Aureus Klebsiella Pneumoniae Normal Jasmin Absent 07/13/18 11:30 Catheterized Urine Urine Culture - Final NO GROWTH 2 DAYS 07/09/18 07/09/18 07/10/18 22:55 22:55 05:04 Creatine Kinase 40 L 41 L CK-MB (CK-2) 0.52 Troponin I < 0.012 NT-Pro-B Natriuret Pep 07/10/18 07/10/18 07/10/18 05:04 11:08 11:08 Creatine Kinase 39 L CK-MB (CK-2) 0.52 0.39 Troponin I 0.015 < 0.012 NT-Pro-B Natriuret Pep 07/11/18 04:01 Creatine Kinase CK-MB (CK-2) Troponin I NT-Pro-B Natriuret Pep 621 Impressions: Head CT 07/09/18 23:33 IMPRESSION: Limited due to motion however no evidence for acute intracranial abnormality. Pansinusitis. TECHNICAL DOCUMENTATION: Quality ID # 436: Final reports with documentation of one or more dose reduction techniques (e.g., Automated exposure control, adjustment of the mA and/or kV according to patient size, use of iterative reconstruction technique) copyright 2011 [employer]- All Rights Reserved Chest X-Ray 07/15/18 06:00 IMPRESSION: SLIGHT IMPROVED AERATION IN THE LEFT LUNG. Thyroid Ultrasound 07/15/18 08:33 IMPRESSION: LIMITED STUDY. ECHOGENIC SOFT TISSUE, INDETERMINATE, WITH NO EVIDENCE OF ABSCESS OR FLUID COLLECTION. THE PATIENT IS SCHEDULED FOR CT SCAN OF THE SOFT TISSUES OF THE NECK. Assessment & Plan - Diagnosis (1) Acute respiratory failure with hypoxia Is this a current diagnosis for this admission?: Yes Plan: Secondary to angioedema from lisinopril. He received 2 days of solumedrol. Continue diphenhydramine. Will continue steroids for now. 07/15: Possible repeat bronch today by pulm. (2) Angio-edema Qualifiers: Encounter type: initial encounter Qualified Code(s): T78.3XXA - Angioneurotic edema, initial encounter Is this a current diagnosis for this admission?: Yes Plan: As per number 1. Continue steroids and diphehydramine. (3) Collapse of left lung Is this a current diagnosis for this admission?: Yes Plan: S/P bronchoscopy on 07/14. Cultures sent from bronch washings. Continue IV antibiotics for now. 07/14: Repeat chest x-ray shows some improvement in the aeration of the left lung. 07/15: Possible repeat bronch today. (4) Hypokalemia Is this a current diagnosis for this admission?: Yes Plan: Getting replacement per protocol. 07/15: Resolved. (5) Hypomagnesemia Is this a current diagnosis for this admission?: Yes Plan: Getting replacement per protocol. 07/15: Resolved. (6) Neck mass Is this a current diagnosis for this admission?: Yes Plan: US shows possible soft tissue mass but is indeterminate. CT neck pending. - Time Time Spent with patient: 25-34 minutes
--- NOTE | 2018-07-15 14:42 | PDOC CONSULTATION ---
Consultation Consult Date: 07/10/18 Attending physician:: BRANDON VENEGAS Consult reason:: Acute respiratory failure secondary to angioedema History of Present Illness Admission Date/PCP: 07/10/18 01:16 ISHAAN BARRETT MD History of Present Illness: ALEKSANDRA SALAZAR is a 57 year old male presents for increasing shortness of breath due to swelling in his face and neck he says several incidences in the past however these were resolved with Benadryl however upon presenting to the emergency room this time Benadryl did not help and he subsequently was intubated and sedated presumably takes lisinopril because of his angioedema. Past Medical History Cardiac Medical History: Reports: Hyperlipidema, Hypertension Pulmonary Medical History: Denies: Asthma, Chronic Obstructive Pulmonary Disease (COPD) EENT Medical History: Reports: None Denies: Cataracts Neurological Medical History: Denies: Hemorrhagic CVA, Ischemic CVA, Seizures Endocrine Medical History: Denies: Diabetes Mellitus Type 1, Diabetes Mellitus Type 2, Hyperthyroidism, Hypothyroidism Renal/ Medical History: Reports: Other - Prostate cancer Denies: Chronic Kidney Disease, Nephrolithiasis Malignancy Medical History: Reports: None GI Medical History: Denies: Cirrhosis, Hepatitis Musculoskeltal Medical History: Denies: Arthritis, Gout Skin Medical History: Denies: Eczema, Psoriasis Psychiatric Medical History: Reports: Alcohol Dependency, Tobacco Dependency Denies: Substance Abuse Traumatic Medical History: Reports: None Hematology: Reports: Anemia Denies: Bleeding Tendencies Infectious Medical History: Reports: None Past Surgical History Past Surgical History: Reports: Other - Radioactive seed implants for prostate cancer Social History Information Source: [facility] Records Lives with: Parents Smoking Status: Current Every Day Smoker Frequency of Alcohol Use: Heavy Hx Recreational Drug Use: No Drugs: None Hx Prescription Drug Abuse: No - Advance Directive Resuscitation Status: Full Code Family History Family History: Hyperlipidemia, Hypertension, Malignancy, Other - Alcoholism Parental Family History Reviewed: No Children Family History Reviewed: No Sibling(s) Family History Reviewed.: No Medication/Allergy Home Medications: Allopurinol [Zyloprim 300 mg Tablet] 300 mg PO DAILY 07/10/18 Atorvastatin Calcium [Lipitor 20 mg Tablet] 20 mg PO QHS 07/10/18 Calcium Citrate [Calcium Citrate 250 mg Tablet] 250 mg PO TID 07/10/18 Lisinopril [Prinivil 10 mg Tablet] 20 mg PO DAILY 07/10/18 Magnesium Oxide [Mag-Ox 400 mg Tablet] 400 mg PO DAILYP PRN 07/10/18 Nadolol [Corgard] 80 mg PO DAILY 07/10/18 Potassium Chloride [Klor-Con 10 Meq Capsule ER] 20 meq PO DAILY 07/10/18 Tramadol HCl [Ultram 50 mg Tablet] 50 mg PO Q6HP PRN 07/10/18 Allergies/Adverse Reactions: lisinopril Allergy (Severe, Verified 07/10/18 10:24) Swelling of tongue Review of Systems ROS unobtainable: Due to endotracheal tube Physical Exam Vital Signs: Temp Pulse Resp BP Pulse Ox 96.6 F L 73 14 150/75 H 96 07/10/18 08:00 07/10/18 08:00 07/10/18 10:00 07/10/18 09:30 07/10/18 10:00 Intake & Output 07/09/18 07/10/18 07/11/18 06:59 06:59 07:59 Intake Total 760 62 Output Total 500 50 Balance 260 12 Weight 88.3 kg General appearance: PRESENT: no acute distress, disheveled, obese. ABSENT: cooperative Head exam: PRESENT: atraumatic, normocephalic Eye exam: PRESENT: conjunctiva pale. ABSENT: EOMI, nystagmus, periorbital swelling, scleral icterus Mouth exam: PRESENT: dry mucosa, neck supple, tongue midline - Swollen protruding from the oral cavity, other - ET tube in place Neck exam: ABSENT: carotid bruit, full ROM, JVD, lymphadenopathy, meningismus, tenderness, thyromegaly, tracheal deviation, tracheostomy, other Respiratory exam: PRESENT: decreased breath sounds, prolonged expiratory phas, rales, rhonchi, unlabored. ABSENT: retraction, stridor Cardiovascular exam: PRESENT: RRR, +S1, +S2, tachycardia Pulses: PRESENT: normal radial pulses GI/Abdominal exam: PRESENT: soft. ABSENT: tenderness Extremities exam: PRESENT: pedal edema. ABSENT: calf tenderness, clubbing, joint swelling Musculoskeletal exam: ABSENT: deformity, dislocation Neurological exam: ABSENT: awake Skin exam: PRESENT: dry, warm Results Laboratory Results: 07/09/18 22:55 07/10/18 05:04 07/09/18 07/09/18 07/09/18 22:55 22:55 22:55 WBC 6.9 RBC 3.19 L Hgb 11.9 L Hct 34.3 L MCV 107 H MCH 37.2 H MCHC 34.6 RDW 17.6 H Plt Count 116 L Seg Neutrophils % 71.2 Lymphocytes % 16.7 Monocytes % 8.1 Eosinophils % 3.0 Basophils % 1.0 Absolute Neutrophils 4.9 Absolute Lymphocytes 1.1 Absolute Monocytes 0.6 Absolute Eosinophils 0.2 Absolute Basophils 0.1 Carbonic Acid HCO3/H2CO3 Ratio ABG pH ABG pCO2 ABG pO2 ABG HCO3 ABG O2 Saturation ABG Base Excess FiO2 Sodium 139.1 Potassium 3.4 L Chloride 103 Carbon Dioxide 23 Anion Gap 13 BUN 7 Creatinine 0.64 Est GFR ( Amer) > 60 Est GFR (Non-Af Amer) > 60 Glucose 86 Calcium 9.0 Total Bilirubin AST ALT Alkaline Phosphatase Total Protein Albumin Blood Type O NEGATIVE 07/10/18 07/10/18 05:04 05:22 WBC RBC Hgb Hct MCV MCH MCHC RDW Plt Count Seg Neutrophils % Lymphocytes % Monocytes % Eosinophils % Basophils % Absolute Neutrophils Absolute Lymphocytes Absolute Monocytes Absolute Eosinophils Absolute Basophils Carbonic Acid 1.12 HCO3/H2CO3 Ratio 20:1 ABG pH 7.41 ABG pCO2 37.3 ABG pO2 135.3 H ABG HCO3 22.9 ABG O2 Saturation 98.7 H ABG Base Excess -1.5 FiO2 60% Sodium 138.1 Potassium 3.6 Chloride 107 Carbon Dioxide 21 L Anion Gap 10 BUN 8 Creatinine 0.59 Est GFR ( Amer) > 60 Est GFR (Non-Af Amer) > 60 Glucose 140 H Calcium 8.4 Total Bilirubin 0.6 AST 43 ALT 39 Alkaline Phosphatase 74 Total Protein 6.2 L Albumin 3.4 L Blood Type 07/09/18 07/09/18 07/10/18 22:55 22:55 05:04 Creatine Kinase 40 L 41 L CK-MB (CK-2) 0.52 Troponin I < 0.012 07/10/18 05:04 Creatine Kinase CK-MB (CK-2) 0.52 Troponin I 0.015 Impressions: Chest X-Ray 07/09/18 23:33 IMPRESSION: Endotracheal tube in place. Cardiomegaly copyright 2011 [employer]- All Rights Reserved Head CT 07/09/18 23:33 IMPRESSION: Limited due to motion however no evidence for acute intracranial abnormality. Pansinusitis. TECHNICAL DOCUMENTATION: Quality ID # [id number]: Final reports with documentation of one or more dose reduction techniques (e.g., Automated exposure control, adjustment of the mA and/or kV according to patient size, use of iterative reconstruction technique) copyright 2011 [employer]- All Rights Reserved Assessment & Plan - Diagnosis (1) Bilateral pleural effusion Is this a current diagnosis for this admission?: Yes Plan: mild diuresis (2) Acute respiratory failure Qualifiers: Respiratory failure complication: unspecified whether with hypoxia or hypercapnia Qualified Code(s): J96.00 - Acute respiratory failure, unspecified whether with hypoxia or hypercapnia Is this a current diagnosis for this admission?: Yes Plan: Oxygenate and ventilate as necessary to maintain pH adequate saturation (3) Angio-edema Qualifiers: Encounter type: initial encounter Qualified Code(s): T78.3XXA - Angioneurotic edema, initial encounter Is this a current diagnosis for this admission?: Yes Plan: H1,H2 steroids (4) Hypertension Qualifiers: Hypertension type: essential hypertension Qualified Code(s): I10 - Essential (primary) hypertension Is this a current diagnosis for this admission?: Yes Plan: stable (5) Tobacco use disorder, moderate, dependence Is this a current diagnosis for this admission?: Yes Plan: stop smoking - Time Total Critical Time (Minutes): 55
--- NOTE | 2018-07-15 14:46 | PDOC PROGRESS REPORT ---
Subjective Progress Note for:: 07/13/18 Subjective:: intubated and sedated Reason For Visit: ACUTE ANGIOEDEMA WITH AIRWAY OBSTRUCTION Physical Exam Vital Signs: Temp Pulse Resp BP Pulse Ox 102.4 F H 84 19 137/68 H 98 07/13/18 08:00 07/13/18 10:00 07/13/18 10:00 07/13/18 10:00 07/13/18 10:00 Intake & Output 07/12/18 07/13/18 07/14/18 06:59 06:59 06:59 Intake Total 1957 2362 111 Output Total 1010 2020 425 Balance 947 342 -314 Weight 95.3 kg 92.4 kg General appearance: PRESENT: no acute distress, disheveled, obese. ABSENT: cooperative Head exam: PRESENT: atraumatic, normocephalic Eye exam: PRESENT: conjunctiva pale. ABSENT: EOMI, nystagmus, periorbital swelling, scleral icterus Mouth exam: PRESENT: dry mucosa, neck supple, tongue midline, other - ET tube Neck exam: ABSENT: carotid bruit, full ROM, JVD, lymphadenopathy, meningismus, tenderness, thyromegaly, tracheal deviation, tracheostomy, other Respiratory exam: PRESENT: decreased breath sounds, prolonged expiratory phas, rales, rhonchi, unlabored. ABSENT: retraction, stridor, wheezes Cardiovascular exam: PRESENT: RRR, +S1, +S2 Pulses: PRESENT: normal radial pulses GI/Abdominal exam: PRESENT: soft. ABSENT: tenderness Gentrourinary exam: PRESENT: indwelling catheter Extremities exam: PRESENT: pedal edema. ABSENT: calf tenderness, clubbing, joint swelling Musculoskeletal exam: ABSENT: deformity, dislocation Neurological exam: ABSENT: awake Skin exam: PRESENT: dry, warm Results Laboratory Results: 07/13/18 04:50 07/13/18 04:50 07/13/18 07/13/18 07/13/18 04:50 04:50 05:00 WBC 11.0 H RBC 3.25 L Hgb 11.8 L Hct 34.6 L MCV 106 H MCH 36.3 H MCHC 34.2 RDW 17.2 H Plt Count 77 L Seg Neutrophils % 86.9 H Lymphocytes % 6.0 L Monocytes % 6.6 Eosinophils % 0.2 Basophils % 0.3 Absolute Neutrophils 9.5 H Absolute Lymphocytes 0.7 Absolute Monocytes 0.7 Absolute Eosinophils 0.0 Absolute Basophils 0.0 Carbonic Acid 0.88 L HCO3/H2CO3 Ratio 23:1 ABG pH 7.48 H ABG pCO2 29.3 L ABG pO2 72.9 L ABG HCO3 21.1 ABG O2 Saturation 95.8 ABG Base Excess -1.5 FiO2 40% Sodium 142.3 Potassium 3.5 L Chloride 110 H Carbon Dioxide 22 Anion Gap 10 BUN 7 Creatinine 0.72 Est GFR ( Amer) > 60 Est GFR (Non-Af Amer) > 60 Glucose 84 Calcium 8.3 L Magnesium 1.7 Total Bilirubin 0.6 AST 29 ALT 18 L Alkaline Phosphatase 60 Total Protein 5.9 L Albumin 3.2 L 07/09/18 07/09/18 07/10/18 22:55 22:55 05:04 Creatine Kinase 40 L 41 L CK-MB (CK-2) 0.52 Troponin I < 0.012 NT-Pro-B Natriuret Pep 07/10/18 07/10/18 07/10/18 05:04 11:08 11:08 Creatine Kinase 39 L CK-MB (CK-2) 0.52 0.39 Troponin I 0.015 < 0.012 NT-Pro-B Natriuret Pep 07/11/18 04:01 Creatine Kinase CK-MB (CK-2) Troponin I NT-Pro-B Natriuret Pep 621 Impressions: Head CT 07/09/18 23:33 IMPRESSION: Limited due to motion however no evidence for acute intracranial abnormality. Pansinusitis. TECHNICAL DOCUMENTATION: Quality ID # [id number]: Final reports with documentation of one or more dose reduction techniques (e.g., Automated exposure control, adjustment of the mA and/or kV according to patient size, use of iterative reconstruction technique) copyright 2011 [employer]- All Rights Reserved Chest X-Ray 07/13/18 06:00 IMPRESSION: Near complete collapse of the left lung is present with shift of mediastinal structures into the left chest. This is new compared to previous studies Assessment & Plan - Diagnosis (1) Bilateral pleural effusion Plan: gentle diuresis (2) Acute respiratory failure Qualifiers: Respiratory failure complication: unspecified whether with hypoxia or hypercapnia Qualified Code(s): J96.00 - Acute respiratory failure, unspecified whether with hypoxia or hypercapnia Is this a current diagnosis for this admission?: Yes Plan: L Lung atelectaasis need FOB w lavage (3) Angio-edema Qualifiers: Encounter type: initial encounter Qualified Code(s): T78.3XXA - Angioneurotic edema, initial encounter Is this a current diagnosis for this admission?: Yes Plan: H1,H2 steroids (4) Hypertension Qualifiers: Hypertension type: essential hypertension Qualified Code(s): I10 - Essential (primary) hypertension Is this a current diagnosis for this admission?: Yes Plan: stable (5) Tobacco use disorder, moderate, dependence Is this a current diagnosis for this admission?: Yes Plan: stop smoking - Time Total Critical Time (Minutes): 45
--- NOTE | 2018-07-15 14:48 | PDOC PROGRESS REPORT ---
Subjective Progress Note for:: 07/11/18 Subjective:: intubated and sedated Reason For Visit: ACUTE ANGIOEDEMA WITH AIRWAY OBSTRUCTION Physical Exam Vital Signs: Temp Pulse Resp BP Pulse Ox 98.1 F 72 14 116/73 97 07/11/18 08:00 07/11/18 10:00 07/11/18 10:00 07/11/18 10:00 07/11/18 11:25 Intake & Output 07/10/18 07/11/18 07/12/18 05:59 06:59 06:59 Intake Total 200 Output Total 0 Balance 200 Weight General appearance: PRESENT: no acute distress, disheveled, obese. ABSENT: cooperative Head exam: PRESENT: atraumatic, normocephalic Eye exam: PRESENT: conjunctiva pale. ABSENT: EOMI, nystagmus, periorbital swelling, scleral icterus Mouth exam: PRESENT: dry mucosa, neck supple, tongue midline, other - ET Neck exam: ABSENT: carotid bruit, full ROM, JVD, lymphadenopathy, meningismus, tenderness, thyromegaly, tracheal deviation, tracheostomy, other Respiratory exam: PRESENT: decreased breath sounds, prolonged expiratory phas, rhonchi, unlabored. ABSENT: retraction Cardiovascular exam: PRESENT: RRR, +S1, +S2, tachycardia Pulses: PRESENT: normal radial pulses GI/Abdominal exam: PRESENT: soft. ABSENT: tenderness Gentrourinary exam: PRESENT: indwelling catheter Extremities exam: PRESENT: pedal edema. ABSENT: calf tenderness, clubbing, joint swelling Musculoskeletal exam: ABSENT: deformity, dislocation Neurological exam: ABSENT: awake Skin exam: PRESENT: dry, warm Results Laboratory Results: 07/11/18 04:01 07/11/18 04:01 07/11/18 07/11/18 07/11/18 04:01 04:01 04:01 WBC 10.5 RBC 2.86 L Hgb 10.5 L Hct 30.4 L MCV 106 H MCH 36.7 H MCHC 34.6 RDW 17.0 H Plt Count 100 L Seg Neutrophils % Not Reportable Lymphocytes % Not Reportable Monocytes % Not Reportable Eosinophils % Not Reportable Basophils % Not Reportable Absolute Neutrophils Not Reportable Absolute Lymphocytes Not Reportable Absolute Monocytes Not Reportable Absolute Eosinophils Not Reportable Absolute Basophils Not Reportable Carbonic Acid HCO3/H2CO3 Ratio ABG pH ABG pCO2 ABG pO2 ABG HCO3 ABG O2 Saturation ABG Base Excess FiO2 Sodium 139.6 Potassium 3.8 Chloride 110 H Carbon Dioxide 19 L Anion Gap 11 BUN 6 L Creatinine 0.58 Est GFR ( Amer) > 60 Est GFR (Non-Af Amer) > 60 Glucose 197 H Calcium 8.0 L Magnesium 1.2 L* Total Bilirubin 0.4 AST 27 ALT 23 Alkaline Phosphatase 59 Total Protein 5.6 L Albumin 3.1 L Triglycerides 78 Cholesterol 140.22 LDL Cholesterol Direct 83 VLDL Cholesterol 16.0 HDL Cholesterol 45 TSH 0.68 Free T4 1.16 Free T3 pg/mL 3.23 07/11/18 04:30 WBC RBC Hgb Hct MCV MCH MCHC RDW Plt Count Seg Neutrophils % Lymphocytes % Monocytes % Eosinophils % Basophils % Absolute Neutrophils Absolute Lymphocytes Absolute Monocytes Absolute Eosinophils Absolute Basophils Carbonic Acid 0.95 L HCO3/H2CO3 Ratio 21:1 ABG pH 7.43 ABG pCO2 31.5 L ABG pO2 81.9 ABG HCO3 20.5 ABG O2 Saturation 96.5 ABG Base Excess -3.0 FiO2 45% Sodium Potassium Chloride Carbon Dioxide Anion Gap BUN Creatinine Est GFR ( Amer) Est GFR (Non-Af Amer) Glucose Calcium Magnesium Total Bilirubin AST ALT Alkaline Phosphatase Total Protein Albumin Triglycerides Cholesterol LDL Cholesterol Direct VLDL Cholesterol HDL Cholesterol TSH Free T4 Free T3 pg/mL 07/09/18 07/09/18 07/10/18 22:55 22:55 05:04 Creatine Kinase 40 L 41 L CK-MB (CK-2) 0.52 Troponin I < 0.012 NT-Pro-B Natriuret Pep 07/10/18 07/10/18 07/10/18 05:04 11:08 11:08 Creatine Kinase 39 L CK-MB (CK-2) 0.52 0.39 Troponin I 0.015 < 0.012 NT-Pro-B Natriuret Pep 07/11/18 04:01 Creatine Kinase CK-MB (CK-2) Troponin I NT-Pro-B Natriuret Pep 621 Impressions: Head CT 07/09/18 23:33 IMPRESSION: Limited due to motion however no evidence for acute intracranial abnormality. Pansinusitis. TECHNICAL DOCUMENTATION: Quality ID # [id number]: Final reports with documentation of one or more dose reduction techniques (e.g., Automated exposure control, adjustment of the mA and/or kV according to patient size, use of iterative reconstruction technique) copyright 2011 [employer]- All Rights Reserved Chest X-Ray 07/11/18 06:00 IMPRESSION: Improving pneumonia. No pneumothorax. Assessment & Plan - Diagnosis (1) Bilateral pleural effusion Is this a current diagnosis for this admission?: Yes Plan: gentle diuresis (2) Acute respiratory failure Qualifiers: Respiratory failure complication: unspecified whether with hypoxia or hypercapnia Qualified Code(s): J96.00 - Acute respiratory failure, unspecified whether with hypoxia or hypercapnia Is this a current diagnosis for this admission?: Yes Plan: L Lung atelectaasis need FOB w lavage (3) Angio-edema Qualifiers: Encounter type: initial encounter Qualified Code(s): T78.3XXA - Angioneurotic edema, initial encounter Is this a current diagnosis for this admission?: Yes Plan: H1,H2 steroids (4) Hypertension Qualifiers: Hypertension type: essential hypertension Qualified Code(s): I10 - Essential (primary) hypertension Is this a current diagnosis for this admission?: Yes Plan: stable (5) Tobacco use disorder, moderate, dependence Is this a current diagnosis for this admission?: Yes Plan: stop smoking - Time Total Critical Time (Minutes): 45
--- NOTE | 2018-07-15 14:56 | RADIOLOGY REPORT (SQ) ---
EXAM DESCRIPTION: CT SOFT TISSUE NECK WITHOUT COMPLETED DATE/TIME: 07/15/2018 2:24 pm REASON FOR STUDY: mass in neck COMPARISON: None. TECHNIQUE: Noncontrast scanning from skull base through lung apices with review of bone, soft tissue and lung windows. Reconstructed coronal and sagittal MPR images reviewed. All images stored on PAC S. All CT scanners at this facility use dose modulation, iterative reconstruction, and/or weight based d osing when appropriate to reduce radiation dose to as low as reasonably achievable (ALARA). [facility]: Dose Right [facility]: CareDose [facility]: Dose Right [facility]: Teradose 4D [facility]: [employer] RADIATION DOSE: mGy. LIMITATIONS: None. FINDINGS: SKULL BASE: Intact. MAJOR SALIVARY GLANDS: No solid or cystic masses. No inflammatory changes. LYMPHADENOPATHY: No adenopathy. MUCOSAL MASSES OR ASYMMETRY: No mucosal masses or asymmetry. LARYNX/CORDS: No abnormal findings. LUNG APICES: Bilateral pleural effusions. Extensive consolidation in the left upper lobe. BONES: Intact. THYROID: Normal size. No masses. PARANASAL SINUSES: Fluid throughout the paranasal sinuses. OTHER: Endotracheal tube, central line, and nasogastric tube are present. IMPRESSION: 1. NO SIGNIFICANT FINDING IN THE SOFT TISSUES OF THE NECK. NO EVIDENCE OF SOFT TISSUE MASS, ABSCESS, OR ADENOPATHY. 2. BILATERAL PLEURAL EFFUSIONS WITH EXTENSIVE CONSOLIDATION IN THE LEFT UPPER LOBE. 3. FLUID THROUGHOUT THE PARANASAL SINUSES. THIS MAY BE EXACERBATED BY PRESENCE OF THE NASOGASTRIC TU BE. TECHNICAL DOCUMENTATION: JOB ID: [id number] Quality ID # [id number]: Final reports with documentation of one or more dose reduction techniques (e.g., Au tomated exposure control, adjustment of the mA and/or kV according to patient size, use of iterative reconstruction technique) 2010 [employer]- All Rights Reserved Reading location - IP/workstation name: [email or web address]
[2018-07-15 18:28] LABS: VANCOMYCIN,TROUGH 26.6 ug/mL (5.0-20.0)
[2018-07-15] MEDS: ATORVASTATIN CALCIUM 20 MG TABLET NG SCH (21:37)
[2018-07-16] MEDS: IPRATROPIUM/ALBUTEROL 0.5-2.5 MG/3 ML AMPUL NEB SCH ×4 (02:02→21:01)
[2018-07-16] MEDS: PROPOFOL 1,000 MG/100 ML INFUS..BTL IV PRN ×5 (02:44→21:35)
[2018-07-16 04:21] LABS: ARTERIAL BLOOD BASE EXCESS -3.5 mmol/L; ARTERIAL BLOOD H2CO3 1.04 mmol/L (1.05-1.35); ARTERIAL BLOOD HCO3 20.7 mmol/L (20-24); ARTERIAL BLOOD O2 SATURATION 96.3 % (94-98); ARTERIAL BLOOD PCO2 34.5 mmHg (35-45); ARTERIAL BLOOD PO2 83.3 mmHg (80-100); ARTERIAL BLOOD TOTAL CO2 21.7 mmol/L (23-27)
[2018-07-16 04:23] LABS: ARTERIAL BLOOD FIO2 50%
[2018-07-16 04:26] LABS: HEMATOCRIT 29.7 % (37.9-51.0); HEMOGLOBIN 10.1 g/dL (13.5-17.0); MEAN CORPUSCULAR HEMOGLOBIN 35.7 pg (27.0-33.4); MEAN CORPUSCULAR VOLUME 105 fl (80-97); RED BLOOD COUNT 2.83 10^6/uL (4.35-5.55); RED CELL DISTRIBUTION WIDTH 17.2 % (11.5-14.0); WHITE BLOOD COUNT 13.6 10^3/uL (4.0-10.5)
[2018-07-16 04:30] LABS: PLATELET COUNT 99 10^3/uL (150-450)
[2018-07-16 04:42] LABS: ANION GAP 8 (5-19); BLOOD UREA NITROGEN 12 mg/dL (7-20); CALCIUM 7.8 mg/dL (8.4-10.2); CARBON DIOXIDE 19 mmol/L (22-30); CHLORIDE 112 mmol/L (98-107); GLUCOSE 148 mg/dL (75-110); POTASSIUM 4.4 mmol/L (3.6-5.0); SODIUM 138.8 mmol/L (137-145)
[2018-07-16 04:55] LABS: ABSOLUTE LYMPHOCYTES# (MANUAL) 0.3 10^3/uL (0.5-4.7); ABSOLUTE MONOCYTES # (MANUAL) 0.5 10^3/uL (0.1-1.4); ABSOLUTE NEUTROPHILS# (MANUAL) 12.8 10^3/uL (1.7-8.2); BASOPHILS % (MANUAL) 0 % (0-2); EOSINOPHILS % (MANUAL) 0 % (0-6); LYMPHOCYTES % (MANUAL) 2 % (13-45); MONOCYTES % (MANUAL) 4 % (3-13); SEGMENTED NEUTROPHILS % (MAN) 94 % (42-78); TOTAL CELLS COUNTED 100
[2018-07-16 04:57] LABS: ANISOCYTOSIS 1+; PLATELET COMMENT DECREASED; TOXIC GRANULATION SLIGHT
[2018-07-16] MEDS: MIDAZOLAM HCL 50 MG/100 ML RTUINJ IV PRN (05:23)
[2018-07-16] MEDS: PIPERACILLIN SODIUM/TAZOBACTAM 3.375 GM in NORMAL SALINE 100 ML IV SCH ×3 (05:24→17:20)
[2018-07-16] MEDS: DIPHENHYDRAMINE HCL 50 MG/ML VIAL IV SCH ×3 (05:24→17:21)
[2018-07-16] MEDS: POTASSI CL 20 MEQ/D5-1/2NS 1L 1,000 ML IV PRN ×2 (05:25→14:20)
[2018-07-16] MEDS: INSULIN LISPRO 100 UNIT/ML 3 ML VIAL SUBCUT SCH ×3 (06:08→17:48)
--- NOTE | 2018-07-16 06:45 | RADIOLOGY REPORT (SQ) ---
CLINICAL HISTORY: lll pna COMPARISON: July 15, 2018. TECHNIQUE: XR CHEST 1 VIEW 07/16/2018 6:00 AM CDT FINDINGS: The heart is mildly enlarged. There is a retrocardiac consolidation seen. There is a vague left apical opacity. There is a moderate left pleural effusion. There is no pneumothorax. There are no acute osseous findings. Endotracheal tube, nasogastric tube and right IJ central line are unchanged. IMPRESSION: Slightly improved aeration of the left lung.
[2018-07-16] MEDS: ACETYLCYSTEINE 20% SOLN 800 MG/4 ML VIAL.NEB NEB SCH ×2 (08:10→21:01)
[2018-07-16] MEDS: ALLOPURINOL 300 MG TABLET NG SCH (09:10)
[2018-07-16] MEDS: NADOLOL 40 MG TABLET NG SCH (09:10)
[2018-07-16] MEDS: FAMOTIDINE INJ/PF 20 MG/2 ML SDV IV SCH ×2 (09:11→22:55)
[2018-07-16] MEDS: POTASSIUM CHLORIDE 20 MEQ/15 ML UDCUP NG SCH (09:11)
[2018-07-16] MEDS: METHYLPREDNISOLONE INJ 40 MG/1 ML SDV IV SCH (09:11)
[2018-07-16 10:34] LABS: VANCOMYCIN,TROUGH 20.7 ug/mL (5.0-20.0)
--- NOTE | 2018-07-16 15:18 | PDOC PROGRESS REPORT ---
Subjective Progress Note for:: 07/16/18 Subjective:: This is a 57 yr old male with HTN on lisinopril who presented with tongue and mouth swelling who decompensated and was intubated in the ER due to angioedema. He was admitted to the ICU and was initially on steroids. On 07/12, he developed a complete left lung whiteout possibly form a mucus plug. He underwent bronchoscopy on 07/13. 07/14: He is currently sedated and intubated on minimal vent settings. Repeat chest x-ray shows improvement in aeration of the left lung. 07/15: Thin secretions from ET. He is saturating well on minimal vent settings. Possible repeat bronch today by pulmonology. 07/16: No acute event overnight. Minimal secretions per ET. Repeat bronch has been deferred as repeat chest x-rays continue to show improvement in aeration of collapsed left lung. Reason For Visit: ACUTE ANGIOEDEMA WITH AIRWAY OBSTRUCTION Physical Exam Vital Signs: Temp Pulse Resp BP Pulse Ox 97.9 F 62 18 180/89 H 96 07/16/18 12:00 07/16/18 14:24 07/16/18 14:24 07/16/18 14:00 07/16/18 14:24 Intake & Output 07/15/18 07/16/18 07/17/18 06:59 06:59 06:59 Intake Total 4890 3623 1278 Output Total 3510 3285 1100 Balance 1380 338 178 Weight 205 lb 4.006 oz 208 lb 8.917 oz General appearance: PRESENT: no acute distress, well-developed, well-nourished, other - intubated, sedated Head exam: PRESENT: atraumatic, normocephalic Eye exam: PRESENT: conjunctiva pink, EOMI, PERRLA. ABSENT: scleral icterus Ear exam: PRESENT: normal external ear exam Mouth exam: PRESENT: moist, tongue midline Neck exam: ABSENT: carotid bruit, JVD, lymphadenopathy, thyromegaly Respiratory exam: PRESENT: decreased breath sounds - left base, rhonchi. ABSENT: rales, wheezes Cardiovascular exam: PRESENT: RRR. ABSENT: diastolic murmur, rubs, systolic murmur Pulses: PRESENT: normal dorsalis pedis pul GI/Abdominal exam: PRESENT: normal bowel sounds, soft. ABSENT: distended, guarding, mass, organolmegaly, rebound, tenderness Rectal exam: PRESENT: deferred Neurological exam: PRESENT: other - intubated, sedated Results Laboratory Results: 07/16/18 04:10 07/16/18 04:10 07/16/18 07/16/18 07/16/18 04:09 04:10 04:10 WBC 13.6 H RBC 2.83 L Hgb 10.1 L Hct 29.7 L MCV 105 H MCH 35.7 H MCHC 34.0 RDW 17.2 H Plt Count 99 L Seg Neutrophils % Not Reportable Lymphocytes % Not Reportable Monocytes % Not Reportable Eosinophils % Not Reportable Basophils % Not Reportable Absolute Neutrophils Not Reportable Absolute Lymphocytes Not Reportable Absolute Monocytes Not Reportable Absolute Eosinophils Not Reportable Absolute Basophils Not Reportable Carbonic Acid 1.04 L HCO3/H2CO3 Ratio 19:1 ABG pH 7.40 ABG pCO2 34.5 L ABG pO2 83.3 ABG HCO3 20.7 ABG O2 Saturation 96.3 ABG Base Excess -3.5 FiO2 50% Sodium 138.8 Potassium 4.4 Chloride 112 H Carbon Dioxide 19 L Anion Gap 8 BUN 12 Creatinine 0.76 Est GFR ( Amer) > 60 Est GFR (Non-Af Amer) > 60 Glucose 148 H Calcium 7.8 L Magnesium 2.3 07/13/18 10:45 Bronchial Washings AFB Smear Concentration - Final 07/13/18 10:45 Bronchial Washings Acid Fast Bacilli Smear - Final 07/13/18 10:45 Bronchial Washings Fungal Smear - Final 07/13/18 10:45 Bronchial Washings Fungal Smear - Final 07/13/18 10:45 Bronchial Washings Gram Stain - Final 07/13/18 10:45 Bronchial Washings Bronchial Washings Culture - Final Staphylococcus Aureus Klebsiella Pneumoniae Normal Jasmin Absent 07/09/18 07/09/18 07/10/18 22:55 22:55 05:04 Creatine Kinase 40 L 41 L CK-MB (CK-2) 0.52 Troponin I < 0.012 NT-Pro-B Natriuret Pep 07/10/18 07/10/18 07/10/18 05:04 11:08 11:08 Creatine Kinase 39 L CK-MB (CK-2) 0.52 0.39 Troponin I 0.015 < 0.012 NT-Pro-B Natriuret Pep 07/11/18 04:01 Creatine Kinase CK-MB (CK-2) Troponin I NT-Pro-B Natriuret Pep 621 Impressions: Head CT 07/09/18 23:33 IMPRESSION: Limited due to motion however no evidence for acute intracranial abnormality. Pansinusitis. TECHNICAL DOCUMENTATION: Quality ID # [id number]: Final reports with documentation of one or more dose reduction techniques (e.g., Automated exposure control, adjustment of the mA and/or kV according to patient size, use of iterative reconstruction technique) copyright 2011 [employer]- All Rights Reserved Thyroid Ultrasound 07/15/18 08:33 IMPRESSION: LIMITED STUDY. ECHOGENIC SOFT TISSUE, INDETERMINATE, WITH NO EVIDENCE OF ABSCESS OR FLUID COLLECTION. THE PATIENT IS SCHEDULED FOR CT SCAN OF THE SOFT TISSUES OF THE NECK. Soft Tissue Neck CT 07/15/18 11:01 IMPRESSION: 1. NO SIGNIFICANT FINDING IN THE SOFT TISSUES OF THE NECK. NO EVIDENCE OF SOFT TISSUE MASS, ABSCESS, OR ADENOPATHY. 2. BILATERAL PLEURAL EFFUSIONS WITH EXTENSIVE CONSOLIDATION IN THE LEFT UPPER LOBE. 3. FLUID THROUGHOUT THE PARANASAL SINUSES. THIS MAY BE EXACERBATED BY PRESENCE OF THE NASOGASTRIC TUBE. Chest X-Ray 07/16/18 06:00 IMPRESSION: Slightly improved aeration of the left lung. Assessment & Plan - Diagnosis (1) Acute respiratory failure with hypoxia Is this a current diagnosis for this admission?: Yes Plan: Secondary to angioedema from lisinopril. He received 2 days of solumedrol. Continue diphenhydramine. Will continue steroids for now. 07/15: Possible repeat bronch today by pulm. 07/16: Repeat bronch has been deferred as repeat chest x-rays continue to show improvement in aeration of collapsed left lung. Will proceed with weaning trials. (2) Collapse of left lung Is this a current diagnosis for this admission?: Yes Plan: S/P bronchoscopy on 07/14. Cultures sent from bronch washings. Continue IV antibiotics for now. 07/14: Repeat chest x-ray shows some improvement in the aeration of the left lung. 07/15: Possible repeat bronch today. 07/16: As per number 1. (3) Angio-edema Qualifiers: Encounter type: initial encounter Qualified Code(s): T78.3XXA - Angioneurotic edema, initial encounter Is this a current diagnosis for this admission?: Yes Plan: As per number 1. Continue steroids and diphehydramine. (4) Hypokalemia Is this a current diagnosis for this admission?: Yes Plan: Getting replacement per protocol. Resolved. (5) Hypomagnesemia Is this a current diagnosis for this admission?: Yes Plan: Getting replacement per protocol. Resolved. (6) Neck mass Is this a current diagnosis for this admission?: Yes Plan: US shows possible soft tissue mass but is indeterminate. CT neck is unremarkable. TSH is normal. Further work-up will be pursued later when patient is more stable. - Time Time Spent with patient: 25-34 minutes
[2018-07-16] MEDS: ATORVASTATIN CALCIUM 20 MG TABLET NG SCH (22:55)
[2018-07-16] MEDS: VANCOMYCIN HCL 1,250 MG in DEXTROSE 5%-WATER 250 ML IV SCH (22:55)
[2018-07-17] MEDS: DIPHENHYDRAMINE HCL 50 MG/ML VIAL IV SCH ×4 (00:58→17:51)
[2018-07-17] MEDS: PIPERACILLIN SODIUM/TAZOBACTAM 3.375 GM in NORMAL SALINE 100 ML IV SCH ×3 (00:58→12:10)
[2018-07-17] MEDS: MIDAZOLAM HCL 50 MG/100 ML RTUINJ IV PRN (01:02)
[2018-07-17] MEDS: FENTANYL CITRATE INJ/PF 100 MCG/2 ML AMPUL IV PRN (01:14)
[2018-07-17] MEDS ORDERED: MIDAZOLAM HCL 50 MG/100 ML RTUINJ IV PRN (02:13)
[2018-07-17] MEDS: IPRATROPIUM/ALBUTEROL 0.5-2.5 MG/3 ML AMPUL NEB SCH ×4 (02:23→20:27)
[2018-07-17] MEDS: PROPOFOL 1,000 MG/100 ML INFUS..BTL IV PRN ×4 (02:47→20:39)
[2018-07-17] MEDS: POTASSI CL 20 MEQ/D5-1/2NS 1L 1,000 ML IV PRN ×2 (03:49→20:34)
[2018-07-17 04:31] LABS: ARTERIAL BLOOD BASE EXCESS -4.8 mmol/L; ARTERIAL BLOOD H2CO3 0.86 mmol/L (1.05-1.35); ARTERIAL BLOOD HCO3 18.4 mmol/L (20-24); ARTERIAL BLOOD O2 SATURATION 95.2 % (94-98); ARTERIAL BLOOD PCO2 28.6 mmHg (35-45); ARTERIAL BLOOD PH 7.43 (7.35-7.45); ARTERIAL BLOOD PO2 72.7 mmHg (80-100); ARTERIAL BLOOD TOTAL CO2 19.3 mmol/L (23-27)
[2018-07-17 04:32] LABS: ARTERIAL BLOOD FIO2 21%
[2018-07-17 04:56] LABS: HEMATOCRIT 32.4 % (37.9-51.0); MEAN CORPUSCULAR HEMOGLOBIN 35.5 pg (27.0-33.4); MEAN CORPUSCULAR HGB CONC 33.8 g/dL (32.0-36.0); MEAN CORPUSCULAR VOLUME 105 fl (80-97); PLATELET COUNT 120 10^3/uL (150-450); RED BLOOD COUNT 3.09 10^6/uL (4.35-5.55); RED CELL DISTRIBUTION WIDTH 17.5 % (11.5-14.0); WHITE BLOOD COUNT 14.8 10^3/uL (4.0-10.5)
[2018-07-17 05:10] LABS: ANION GAP 9 (5-19); BLOOD UREA NITROGEN 14 mg/dL (7-20); CALCIUM 8.3 mg/dL (8.4-10.2); CARBON DIOXIDE 19 mmol/L (22-30); CHLORIDE 110 mmol/L (98-107); GLUCOSE 116 mg/dL (75-110); POTASSIUM 4.2 mmol/L (3.6-5.0); SODIUM 138.2 mmol/L (137-145)
[2018-07-17 05:25] LABS: ABSOLUTE LYMPHOCYTES# (MANUAL) 0.7 10^3/uL (0.5-4.7); ABSOLUTE MONOCYTES # (MANUAL) 0.7 10^3/uL (0.1-1.4); ABSOLUTE NEUTROPHILS# (MANUAL) 13.3 10^3/uL (1.7-8.2); BASOPHILS % (MANUAL) 0 % (0-2); EOSINOPHILS % (MANUAL) 0 % (0-6); LYMPHOCYTES % (MANUAL) 5 % (13-45); MONOCYTES % (MANUAL) 5 % (3-13); SEGMENTED NEUTROPHILS % (MAN) 90 % (42-78); TOTAL CELLS COUNTED 100
[2018-07-17 05:26] LABS: ANISOCYTOSIS 1+; PLATELET COMMENT ADEQUATE; POLYCHROMASIA 1+
[2018-07-17] MEDS: INSULIN LISPRO 100 UNIT/ML 3 ML VIAL SUBCUT SCH ×4 (06:00→17:51)
--- NOTE | 2018-07-17 07:46 | RADIOLOGY REPORT (SQ) ---
EXAM DESCRIPTION: XR CHEST 1 VIEW COMPLETED DATE/TME: 07/17/2018 06:00 CLINICAL HISTORY: 57 years Male, resp failure COMPARISON: One day prior. NUMBER OF VIEWS/TECHNIQUE: 1/AP FINDINGS: Bilateral lower thoracic opacity/effusion. Adequate appearing endotracheal tube. Likely adequate appearing enteric tube partially obscured. Adequate appearing right jugular central line. Normal cardiac silhouette size. No pneumothorax. Stable bony thorax. IMPRESSION: No significant change.
[2018-07-17] MEDS: ACETYLCYSTEINE 20% SOLN 800 MG/4 ML VIAL.NEB NEB SCH ×2 (08:00→20:27)
[2018-07-17] MEDS: FUROSEMIDE INJ/PF 20 MG/2 ML SDV IV SCH ×2 (10:35→21:42)
[2018-07-17] MEDS: METHYLPREDNISOLONE INJ 40 MG/1 ML SDV IV SCH (10:35)
[2018-07-17] MEDS: FAMOTIDINE INJ/PF 20 MG/2 ML SDV IV SCH ×2 (10:36→21:43)
[2018-07-17] MEDS: POTASSIUM CHLORIDE 20 MEQ/15 ML UDCUP NG SCH (10:36)
[2018-07-17] MEDS: ALLOPURINOL 300 MG TABLET NG SCH (10:37)
[2018-07-17] MEDS: NADOLOL 40 MG TABLET NG SCH (10:37)
[2018-07-17] MEDS: VANCOMYCIN HCL 1,250 MG in DEXTROSE 5%-WATER 250 ML IV SCH (10:38)
--- NOTE | 2018-07-17 14:38 | PDOC PROGRESS REPORT ---
Subjective Progress Note for:: 07/17/18 Subjective:: This is a 57 yr old male with HTN on lisinopril who presented with tongue and mouth swelling who decompensated and was intubated in the ER due to angioedema. He was admitted to the ICU and was initially on steroids. On 07/12, he developed a complete left lung whiteout possibly form a mucus plug. He underwent bronchoscopy on 07/13. 07/14: He is currently sedated and intubated on minimal vent settings. Repeat chest x-ray shows improvement in aeration of the left lung. 07/15: Thin secretions from ET. He is saturating well on minimal vent settings. Possible repeat bronch today by pulmonology. 07/16: Minimal secretions per ET. Repeat bronch has been deferred as repeat chest x-rays continue to show improvement in aeration of collapsed left lung. 07/17: No acute event overnight. Currently doing well on weaning trial. Reason For Visit: ACUTE ANGIOEDEMA WITH AIRWAY OBSTRUCTION Physical Exam Vital Signs: Temp Pulse Resp BP Pulse Ox 97.5 F 71 22 H 148/86 H 95 07/17/18 12:00 07/17/18 13:52 07/17/18 13:52 07/17/18 12:00 07/17/18 13:52 Intake & Output 07/16/18 07/17/18 07/18/18 06:59 06:59 06:59 Intake Total 3623 3111 92 Output Total 3285 2620 2420 Balance 338 491 -2328 Weight 208 lb 8.917 oz 208 lb 1.862 oz General appearance: PRESENT: no acute distress, well-developed, well-nourished Head exam: PRESENT: atraumatic, normocephalic Eye exam: PRESENT: conjunctiva pink, EOMI, PERRLA. ABSENT: scleral icterus Ear exam: PRESENT: normal external ear exam Mouth exam: PRESENT: moist, tongue midline Neck exam: ABSENT: carotid bruit, JVD, lymphadenopathy, thyromegaly Respiratory exam: PRESENT: decreased breath sounds - slightly dec on the left base. ABSENT: rales, rhonchi, wheezes Cardiovascular exam: PRESENT: RRR. ABSENT: diastolic murmur, rubs, systolic murmur Pulses: PRESENT: normal dorsalis pedis pul GI/Abdominal exam: PRESENT: normal bowel sounds, soft. ABSENT: distended, guarding, mass, organolmegaly, rebound, tenderness Rectal exam: PRESENT: deferred Neurological exam: PRESENT: other - intubated. ABSENT: motor sensory deficit Results Laboratory Results: 07/17/18 04:39 07/17/18 04:39 07/17/18 07/17/18 07/17/18 04:26 04:39 04:39 WBC 14.8 H RBC 3.09 L Hgb 11.0 L Hct 32.4 L MCV 105 H MCH 35.5 H MCHC 33.8 RDW 17.5 H Plt Count 120 L Seg Neutrophils % Not Reportable Lymphocytes % Not Reportable Monocytes % Not Reportable Eosinophils % Not Reportable Basophils % Not Reportable Absolute Neutrophils Not Reportable Absolute Lymphocytes Not Reportable Absolute Monocytes Not Reportable Absolute Eosinophils Not Reportable Absolute Basophils Not Reportable Carbonic Acid 0.86 L HCO3/H2CO3 Ratio 21:1 ABG pH 7.43 ABG pCO2 28.6 L ABG pO2 72.7 L ABG HCO3 18.4 L ABG O2 Saturation 95.2 ABG Base Excess -4.8 FiO2 21% Sodium 138.2 Potassium 4.2 Chloride 110 H Carbon Dioxide 19 L Anion Gap 9 BUN 14 Creatinine 0.76 Est GFR ( Amer) > 60 Est GFR (Non-Af Amer) > 60 Glucose 116 H Calcium 8.3 L Magnesium 2.2 07/16/18 12:22 Sputum Gram Stain - Final 07/09/18 07/09/18 07/10/18 22:55 22:55 05:04 Creatine Kinase 40 L 41 L CK-MB (CK-2) 0.52 Troponin I < 0.012 NT-Pro-B Natriuret Pep 07/10/18 07/10/18 07/10/18 05:04 11:08 11:08 Creatine Kinase 39 L CK-MB (CK-2) 0.52 0.39 Troponin I 0.015 < 0.012 NT-Pro-B Natriuret Pep 07/11/18 04:01 Creatine Kinase CK-MB (CK-2) Troponin I NT-Pro-B Natriuret Pep 621 Impressions: Head CT 07/09/18 23:33 IMPRESSION: Limited due to motion however no evidence for acute intracranial abnormality. Pansinusitis. TECHNICAL DOCUMENTATION: Quality ID # [id number]: Final reports with documentation of one or more dose reduction techniques (e.g., Automated exposure control, adjustment of the mA and/or kV according to patient size, use of iterative reconstruction technique) copyright 2011 [employer]- All Rights Reserved Thyroid Ultrasound 07/15/18 08:33 IMPRESSION: LIMITED STUDY. ECHOGENIC SOFT TISSUE, INDETERMINATE, WITH NO EVIDENCE OF ABSCESS OR FLUID COLLECTION. THE PATIENT IS SCHEDULED FOR CT SCAN OF THE SOFT TISSUES OF THE NECK. Soft Tissue Neck CT 07/15/18 11:01 IMPRESSION: 1. NO SIGNIFICANT FINDING IN THE SOFT TISSUES OF THE NECK. NO EVIDENCE OF SOFT TISSUE MASS, ABSCESS, OR ADENOPATHY. 2. BILATERAL PLEURAL EFFUSIONS WITH EXTENSIVE CONSOLIDATION IN THE LEFT UPPER LOBE. 3. FLUID THROUGHOUT THE PARANASAL SINUSES. THIS MAY BE EXACERBATED BY PRESENCE OF THE NASOGASTRIC TUBE. Chest X-Ray 07/17/18 06:00 IMPRESSION: No significant change. Assessment & Plan - Diagnosis (1) Acute respiratory failure with hypoxia Is this a current diagnosis for this admission?: Yes Plan: Secondary to angioedema from lisinopril. He received 2 days of solumedrol. Continue diphenhydramine. Will continue steroids for now. 07/15: Possible repeat bronch today by pulm. 07/16: Repeat bronch has been deferred as repeat chest x-rays continue to show improvement in aeration of collapsed left lung. Will proceed with weaning trials. 07/17: Currently doing well on weaning trial. Possible extubation today. (2) Collapse of left lung Is this a current diagnosis for this admission?: Yes Plan: S/P bronchoscopy on 07/14. Cultures sent from bronch washings. Continue IV antibiotics for now. 07/15: Possible repeat bronch today. 07/16: Repeat chest x-ray shows improvement in aeration of left lung. Repeat bronch deferred. (3) Pneumonia Is this a current diagnosis for this admission?: Yes Plan: Bronch washings grew Staph and Kleb. Noted sensitivity. De-escalate antibiotics to Rocephin. (4) Angio-edema Qualifiers: Encounter type: initial encounter Qualified Code(s): T78.3XXA - Angioneurotic edema, initial encounter Is this a current diagnosis for this admission?: Yes Plan: As per number 1. Resolved. Reduce steroids and diphehydramine. (5) Hypokalemia Is this a current diagnosis for this admission?: Yes Plan: Getting replacement per protocol. Resolved. (6) Hypomagnesemia Is this a current diagnosis for this admission?: Yes Plan: Getting replacement per protocol. Resolved. (7) Neck mass Is this a current diagnosis for this admission?: Yes Plan: US shows possible soft tissue mass but is indeterminate. CT neck is unremarkable. TSH is normal. Further work-up will be pursued later when patient is more stable. - Time Time Spent with patient: 25-34 minutes
[2018-07-17] MEDS: ATORVASTATIN CALCIUM 20 MG TABLET NG SCH (21:42)
[2018-07-17] MEDS: ACETAMINOPHEN 650 MG SUPP.RECT PR PRN (23:28)
[2018-07-18] MEDS: INSULIN LISPRO 100 UNIT/ML 3 ML VIAL SUBCUT SCH ×4 (00:38→17:34)
[2018-07-18] MEDS: DIPHENHYDRAMINE HCL 50 MG/ML VIAL IV SCH ×4 (00:52→17:31)
[2018-07-18] MEDS: IPRATROPIUM/ALBUTEROL 0.5-2.5 MG/3 ML AMPUL NEB SCH ×4 (01:59→20:05)
[2018-07-18] MEDS: PROPOFOL 1,000 MG/100 ML INFUS..BTL IV PRN ×6 (02:35→23:45)
--- NOTE | 2018-07-18 02:43 | RADIOLOGY REPORT (SQ) ---
EXAM DESCRIPTION: XR CHEST 1 VIEW COMPLETED DATE/TME: 07/18/2018 00:00 CLINICAL HISTORY: 57 years, Male, respiratory failure COMPARISON: X-ray chest 07/17/2018 NUMBER OF VIEWS: TECHNIQUE: LIMITATIONS: None. FINDINGS: There is increased opacity at the left lung base, compatible with pleural effusion and/or atelectasis and/or infiltrate. The infiltrate/atelectasis at the right lung base has improved somewhat, as compared with the prior chest x-ray. Lines and tubes are unchanged in position. The side-port of the nasogastric tube is in the region of the gastroesophageal junction. IMPRESSION: Left basilar pleural effusion and/or atelectasis and/or infiltrate. Right basilar infiltrate/atelectasis has improved somewhat, as compared with the prior chest x-ray. The side-port of the NG tube is in the region of the gastroesophageal junction. copyright 2010 [employer]- All Rights Reserved
[2018-07-18 03:08] LABS: APPEARANCE,URINE CLEAR; BILIRUBIN,URINE NEGATIVE (NEGATIVE); COLOR,URINE STRAW; GLUCOSE, URINE NEGATIVE (NEGATIVE); KETONES,URINE NEGATIVE (NEGATIVE); LEUKOCYTE ESTERASE,URINE NEGATIVE (NEGATIVE); NITRITE,URINE NEGATIVE (NEGATIVE); PROTEIN,URINE NEGATIVE (NEGATIVE); URINE SPECIFIC GRAVITY 1.009; UROBILINOGEN,URINE NEGATIVE mg/dL (<2.0)
[2018-07-18 04:08] LABS: ARTERIAL BLOOD BASE EXCESS 0.1 mmol/L; ARTERIAL BLOOD H2CO3 0.97 mmol/L (1.05-1.35); ARTERIAL BLOOD O2 SATURATION 95.6 % (94-98); ARTERIAL BLOOD PCO2 32.1 mmHg (35-45); ARTERIAL BLOOD PH 7.47 (7.35-7.45); ARTERIAL BLOOD PO2 71.9 mmHg (80-100)
[2018-07-18 04:09] LABS: ARTERIAL BLOOD FIO2 21%
[2018-07-18] MEDS: POTASSI CL 20 MEQ/D5-1/2NS 1L 1,000 ML IV PRN ×2 (04:53→21:19)
[2018-07-18 05:17] LABS: HEMATOCRIT 32.5 % (37.9-51.0); MEAN CORPUSCULAR VOLUME 103 fl (80-97); PLATELET COUNT 121 10^3/uL (150-450); RED BLOOD COUNT 3.15 10^6/uL (4.35-5.55); RED CELL DISTRIBUTION WIDTH 18.1 % (11.5-14.0)
[2018-07-18 05:18] LABS: ANION GAP 7 (5-19); BLOOD UREA NITROGEN 15 mg/dL (7-20); CALCIUM 8.4 mg/dL (8.4-10.2); CARBON DIOXIDE 23 mmol/L (22-30); CHLORIDE 106 mmol/L (98-107); GLUCOSE 110 mg/dL (75-110); POTASSIUM 3.6 mmol/L (3.6-5.0); SODIUM 136.4 mmol/L (137-145)
[2018-07-18 05:47] LABS: ABSOLUTE LYMPHOCYTES# (MANUAL) 0.8 10^3/uL (0.5-4.7); ABSOLUTE MONOCYTES # (MANUAL) 1.4 10^3/uL (0.1-1.4); ABSOLUTE NEUTROPHILS# (MANUAL) 10.8 10^3/uL (1.7-8.2); BASOPHILS % (MANUAL) 0 % (0-2); EOSINOPHILS % (MANUAL) 0 % (0-6); LYMPHOCYTES % (MANUAL) 6 % (13-45); MONOCYTES % (MANUAL) 11 % (3-13); SEGMENTED NEUTROPHILS % (MAN) 83 % (42-78); TOTAL CELLS COUNTED 100
[2018-07-18 05:50] LABS: ANISOCYTOSIS 2+; HELMET CELLS SLIGHT; OVALOCYTES 1+; PLATELET COMMENT ADEQUATE; POIKILOCYTOSIS 2+; SCHISTOCYTES SLIGHT; TEAR DROP CELLS 1+; TOXIC GRANULATION 1+; TOXIC VACUOLATION PRESENT
[2018-07-18] MEDS: ACETYLCYSTEINE 20% SOLN 800 MG/4 ML VIAL.NEB NEB SCH ×2 (07:53→20:05)
[2018-07-18] MEDS: POTASSIUM CHLORIDE 20 MEQ/15 ML UDCUP NG SCH (10:27)
[2018-07-18] MEDS: FUROSEMIDE INJ/PF 20 MG/2 ML SDV IV SCH ×2 (10:27→21:15)
[2018-07-18] MEDS: FAMOTIDINE INJ/PF 20 MG/2 ML SDV IV SCH ×2 (10:27→21:15)
[2018-07-18] MEDS: METHYLPREDNISOLONE INJ 40 MG/1 ML SDV IV SCH (10:27)
[2018-07-18] MEDS: CEFTRIAXONE 1 GM/D5W RTU 1 GM/50 ML RTUPB IV SCH (10:29)
[2018-07-18] MEDS: ALLOPURINOL 300 MG TABLET NG SCH (10:30)
[2018-07-18] MEDS: NADOLOL 40 MG TABLET NG SCH (10:31)
[2018-07-18 10:46] LABS: VANCOMYCIN,TROUGH 7.7 ug/mL (5.0-20.0)
--- NOTE | 2018-07-18 15:45 | PDOC PROGRESS REPORT ---
Subjective Progress Note for:: 07/18/18 Subjective:: This is a 57 yr old male with HTN on lisinopril who presented with tongue and mouth swelling who decompensated and was intubated in the ER due to angioedema. He was admitted to the ICU and was initially on steroids. On 07/12, he developed a complete left lung whiteout possibly form a mucus plug. He underwent bronchoscopy on 07/13. 07/14: He is currently sedated and intubated on minimal vent settings. Repeat chest x-ray shows improvement in aeration of the left lung. 07/15: Thin secretions from ET. He is saturating well on minimal vent settings. Possible repeat bronch today by pulmonology. 07/16: Minimal secretions per ET. Repeat bronch has been deferred as repeat chest x-rays continue to show improvement in aeration of collapsed left lung. 07/18: He had a low sugar last night in the 50 and was given dextrose. Sugars have improved with D5 containing fluid. Will hold off on tube feed as he is anticipated to be extubated tomorrow. Currently doing well on weaning trial. Follows commands on minimal sedation. Per pulmonology, extubation tomorrow. Reason For Visit: ACUTE ANGIOEDEMA WITH AIRWAY OBSTRUCTION Physical Exam Vital Signs: Temp Pulse Resp BP Pulse Ox 99.7 F 72 19 136/78 H 97 07/18/18 14:00 07/18/18 14:07 07/18/18 15:21 07/18/18 15:21 07/18/18 15:21 Intake & Output 07/17/18 07/18/18 07/19/18 06:59 06:59 06:59 Intake Total 3111 2894 175 Output Total 2620 5945 1450 Balance 491 -3051 -1275 Weight 208 lb 1.862 oz 200 lb 2.876 oz General appearance: PRESENT: no acute distress, well-developed, well-nourished Head exam: PRESENT: atraumatic, normocephalic Eye exam: PRESENT: conjunctiva pink, EOMI, PERRLA. ABSENT: scleral icterus Ear exam: PRESENT: normal external ear exam Mouth exam: PRESENT: moist, tongue midline Neck exam: ABSENT: carotid bruit, JVD, lymphadenopathy, thyromegaly Respiratory exam: PRESENT: rhonchi. ABSENT: rales, wheezes Cardiovascular exam: PRESENT: RRR. ABSENT: diastolic murmur, rubs, systolic murmur Pulses: PRESENT: normal dorsalis pedis pul GI/Abdominal exam: PRESENT: normal bowel sounds, soft. ABSENT: distended, guarding, mass, organolmegaly, rebound, tenderness Rectal exam: PRESENT: deferred Neurological exam: PRESENT: other - intubated, minimally sedated Results Laboratory Results: 07/18/18 04:48 07/18/18 04:48 07/18/18 07/18/18 07/18/18 02:30 04:01 04:48 WBC RBC Hgb Hct MCV MCH MCHC RDW Plt Count Seg Neutrophils % Lymphocytes % Monocytes % Eosinophils % Basophils % Absolute Neutrophils Absolute Lymphocytes Absolute Monocytes Absolute Eosinophils Absolute Basophils Carbonic Acid 0.97 L HCO3/H2CO3 Ratio 23:1 ABG pH 7.47 H ABG pCO2 32.1 L ABG pO2 71.9 L ABG HCO3 23.0 ABG O2 Saturation 95.6 ABG Base Excess 0.1 FiO2 21% Sodium 136.4 L Potassium 3.6 Chloride 106 Carbon Dioxide 23 Anion Gap 7 BUN 15 Creatinine 0.81 Est GFR ( Amer) > 60 Est GFR (Non-Af Amer) > 60 Glucose 110 Calcium 8.4 Magnesium 1.7 Urine Color STRAW Urine Appearance CLEAR Urine pH 5.0 Ur Specific Snyder 1.009 Urine Protein NEGATIVE Urine Glucose (UA) NEGATIVE Urine Ketones NEGATIVE Urine Blood NEGATIVE Urine Nitrite NEGATIVE Ur Leukocyte Esterase NEGATIVE Urine WBC (Auto) 0 Urine RBC (Auto) 0 07/18/18 04:48 WBC 13.0 H RBC 3.15 L Hgb 11.0 L Hct 32.5 L MCV 103 H MCH 35.0 H MCHC 34.0 RDW 18.1 H Plt Count 121 L Seg Neutrophils % Not Reportable Lymphocytes % Not Reportable Monocytes % Not Reportable Eosinophils % Not Reportable Basophils % Not Reportable Absolute Neutrophils Not Reportable Absolute Lymphocytes Not Reportable Absolute Monocytes Not Reportable Absolute Eosinophils Not Reportable Absolute Basophils Not Reportable Carbonic Acid HCO3/H2CO3 Ratio ABG pH ABG pCO2 ABG pO2 ABG HCO3 ABG O2 Saturation ABG Base Excess FiO2 Sodium Potassium Chloride Carbon Dioxide Anion Gap BUN Creatinine Est GFR ( Amer) Est GFR (Non-Af Amer) Glucose Calcium Magnesium Urine Color Urine Appearance Urine pH Ur Specific Snyder Urine Protein Urine Glucose (UA) Urine Ketones Urine Blood Urine Nitrite Ur Leukocyte Esterase Urine WBC (Auto) Urine RBC (Auto) 07/13/18 12:16 Blood Blood Culture - Final NO GROWTH IN 5 DAYS 07/13/18 10:07 Blood Blood Culture - Final NO GROWTH IN 5 DAYS 07/16/18 12:22 Sputum Gram Stain - Final 07/16/18 12:22 Sputum Sputum Culture - Final Staphylococcus Aureus Klebsiella Pneumoniae Normal Jasmin Absent 07/09/18 07/09/18 07/10/18 22:55 22:55 05:04 Creatine Kinase 40 L 41 L CK-MB (CK-2) 0.52 Troponin I < 0.012 NT-Pro-B Natriuret Pep 07/10/18 07/10/18 07/10/18 05:04 11:08 11:08 Creatine Kinase 39 L CK-MB (CK-2) 0.52 0.39 Troponin I 0.015 < 0.012 NT-Pro-B Natriuret Pep 07/11/18 04:01 Creatine Kinase CK-MB (CK-2) Troponin I NT-Pro-B Natriuret Pep 621 Impressions: Head CT 07/09/18 23:33 IMPRESSION: Limited due to motion however no evidence for acute intracranial abnormality. Pansinusitis. TECHNICAL DOCUMENTATION: Quality ID # 436: Final reports with documentation of one or more dose reduction techniques (e.g., Automated exposure control, adjustment of the mA and/or kV according to patient size, use of iterative reconstruction technique) copyright 2011 [employer]- All Rights Reserved Thyroid Ultrasound 07/15/18 08:33 IMPRESSION: LIMITED STUDY. ECHOGENIC SOFT TISSUE, INDETERMINATE, WITH NO EVIDENCE OF ABSCESS OR FLUID COLLECTION. THE PATIENT IS SCHEDULED FOR CT SCAN OF THE SOFT TISSUES OF THE NECK. Soft Tissue Neck CT 07/15/18 11:01 IMPRESSION: 1. NO SIGNIFICANT FINDING IN THE SOFT TISSUES OF THE NECK. NO EVIDENCE OF SOFT TISSUE MASS, ABSCESS, OR ADENOPATHY. 2. BILATERAL PLEURAL EFFUSIONS WITH EXTENSIVE CONSOLIDATION IN THE LEFT UPPER LOBE. 3. FLUID THROUGHOUT THE PARANASAL SINUSES. THIS MAY BE EXACERBATED BY PRESENCE OF THE NASOGASTRIC TUBE. Chest X-Ray 07/18/18 00:00 IMPRESSION: Left basilar pleural effusion and/or atelectasis and/or infiltrate. Right basilar infiltrate/atelectasis has improved somewhat, as compared with the prior chest x-ray. The side-port of the NG tube is in the region of the gastroesophageal junction. copyright 2010 [employer]- All Rights Reserved Assessment & Plan - Diagnosis (1) Acute respiratory failure with hypoxia Is this a current diagnosis for this admission?: Yes Plan: Secondary to angioedema from lisinopril. He received 2 days of solumedrol. Continue diphenhydramine. Will continue steroids for now. 07/15: Possible repeat bronch today by pulm. 07/16: Repeat bronch has been deferred as repeat chest x-rays continue to show improvement in aeration of collapsed left lung. Will proceed with weaning trials. 07/18: Currently doing well on weaning trial. Follows commands on minimal sedation. Per pulmonology, extubation tomorrow. (2) Collapse of left lung Is this a current diagnosis for this admission?: Yes Plan: S/P bronchoscopy on 07/14. Cultures sent from bronch washings. Continue IV antib iotics for now. 07/15: Possible repeat bronch today. 07/16: Repeat chest x-ray shows improvement in aeration of left lung. Repeat bronch deferred. (3) Pneumonia Is this a current diagnosis for this admission?: Yes Plan: Bronch washings grew Staph and Kleb. Noted sensitivity. De-escalate antibiotics to Rocephin. (4) Angio-edema Qualifiers: Encounter type: initial encounter Qualified Code(s): T78.3XXA - Angioneurotic edema, initial encounter Is this a current diagnosis for this admission?: Yes Plan: As per number 1. Resolved. Reduce steroids and diphehydramine. (5) Hypokalemia Is this a current diagnosis for this admission?: Yes Plan: Getting replacement per protocol. Resolved. (6) Hypomagnesemia Is this a current diagnosis for this admission?: Yes Plan: Getting replacement per protocol. Resolved. (7) Neck mass Is this a current diagnosis for this admission?: Yes Plan: US shows possible soft tissue mass but is indeterminate. CT neck is unremarkable. TSH is normal. Further work-up will be pursued later when patient is more stable and off ventilator. - Time Time Spent with patient: 25-34 minutes
[2018-07-18] MEDS: ATORVASTATIN CALCIUM 20 MG TABLET NG SCH (21:15)
[2018-07-18] MEDS: FENTANYL CITRATE INJ/PF 100 MCG/2 ML AMPUL IV PRN (22:49)
[2018-07-19] MEDS: INSULIN LISPRO 100 UNIT/ML 3 ML VIAL SUBCUT SCH ×5 (00:20→23:15)
[2018-07-19] MEDS: DIPHENHYDRAMINE HCL 50 MG/ML VIAL IV SCH ×3 (00:22→12:26)
[2018-07-19] MEDS: IPRATROPIUM/ALBUTEROL 0.5-2.5 MG/3 ML AMPUL NEB SCH ×4 (02:38→20:37)
[2018-07-19] MEDS: PROPOFOL 1,000 MG/100 ML INFUS..BTL IV PRN ×2 (03:05→06:44)
[2018-07-19] MEDS: FENTANYL CITRATE INJ/PF 100 MCG/2 ML AMPUL IV PRN (05:25)
[2018-07-19] MEDS: POTASSI CL 20 MEQ/D5-1/2NS 1L 1,000 ML IV PRN ×3 (05:29→22:11)
[2018-07-19 05:36] LABS: ARTERIAL BLOOD BASE EXCESS -0.4 mmol/L; ARTERIAL BLOOD H2CO3 1.05 mmol/L (1.05-1.35); ARTERIAL BLOOD HCO3 23.3 mmol/L (20-24); ARTERIAL BLOOD O2 SATURATION 94.3 % (94-98); ARTERIAL BLOOD PCO2 34.8 mmHg (35-45); ARTERIAL BLOOD PH 7.44 (7.35-7.45); ARTERIAL BLOOD PO2 67.4 mmHg (80-100); ARTERIAL BLOOD TOTAL CO2 24.3 mmol/L (23-27)
[2018-07-19 05:39] LABS: ARTERIAL BLOOD FIO2 21%
[2018-07-19 05:47] LABS: ANION GAP 9 (5-19); BLOOD UREA NITROGEN 11 mg/dL (7-20); CALCIUM 8.6 mg/dL (8.4-10.2); CARBON DIOXIDE 25 mmol/L (22-30); CHLORIDE 105 mmol/L (98-107); GLUCOSE 125 mg/dL (75-110); POTASSIUM 3.5 mmol/L (3.6-5.0); SODIUM 138.9 mmol/L (137-145)
[2018-07-19] MEDS: ACETYLCYSTEINE 20% SOLN 800 MG/4 ML VIAL.NEB NEB SCH ×2 (08:52→20:37)
[2018-07-19] MEDS: POTASSIUM CHLORIDE 20 MEQ/15 ML UDCUP NG SCH (09:28)
[2018-07-19] MEDS: CEFTRIAXONE 1 GM/D5W RTU 1 GM/50 ML RTUPB IV SCH (09:29)
[2018-07-19] MEDS: NADOLOL 40 MG TABLET NG SCH (09:29)
[2018-07-19] MEDS: FAMOTIDINE INJ/PF 20 MG/2 ML SDV IV SCH ×2 (09:29→22:11)
[2018-07-19] MEDS: FUROSEMIDE INJ/PF 20 MG/2 ML SDV IV SCH ×2 (09:29→22:11)
[2018-07-19] MEDS: ALLOPURINOL 300 MG TABLET NG SCH (09:29)
[2018-07-19] MEDS: METHYLPREDNISOLONE INJ 40 MG/1 ML SDV IV SCH (09:29)
--- NOTE | 2018-07-19 17:29 | PDOC PROGRESS REPORT ---
Subjective Progress Note for:: 07/19/18 Subjective:: This is a 57 yr old male with HTN on lisinopril who presented with tongue and mouth swelling who decompensated and was intubated in the ER due to angioedema. He was admitted to the ICU and was initially on steroids. On 07/12, he developed a complete left lung whiteout possibly form a mucus plug. He underwent bronchoscopy on 07/13. 07/14: He is currently sedated and intubated on minimal vent settings. Repeat chest x-ray shows improvement in aeration of the left lung. 07/15: Thin secretions from ET. He is saturating well on minimal vent settings. Possible repeat bronch today by pulmonology. 07/16: Minimal secretions per ET. Repeat bronch has been deferred as repeat chest x-rays continue to show improvement in aeration of collapsed left lung. 07/18: He had a low sugar last night in the 50 and was given dextrose. Sugars have improved with D5 containing fluid. Will hold off on tube feed as he is anticipated to be extubated tomorrow. Currently doing well on weaning trial. Follows commands on minimal sedation. Per pulmonology, extubation tomorrow. 07/19: No acute event overnight. Patient just got extubated and so far is doing well on 4 lpm via NC. He denies SOB or chest pain but says he feels weak. Reason For Visit: ACUTE ANGIOEDEMA WITH AIRWAY OBSTRUCTION Physical Exam Vital Signs: Temp Pulse Resp BP Pulse Ox 99.5 F 84 21 H 147/78 H 96 07/19/18 16:00 07/19/18 16:00 07/19/18 16:00 07/19/18 16:00 07/19/18 16:00 Intake & Output 07/18/18 07/19/18 07/20/18 06:59 06:59 06:59 Intake Total 2894 9247 1098 Output Total 3876 5461 2703 Balance -9582 -8622 -8096 Weight 200 lb 2.876 oz 191 lb 5.78 oz General appearance: PRESENT: no acute distress, well-developed, well-nourished Head exam: PRESENT: atraumatic, normocephalic Eye exam: PRESENT: conjunctiva pink, EOMI, PERRLA. ABSENT: scleral icterus Ear exam: PRESENT: normal external ear exam Mouth exam: PRESENT: moist, tongue midline Neck exam: ABSENT: carotid bruit, JVD, lymphadenopathy, thyromegaly Respiratory exam: PRESENT: rhonchi. ABSENT: rales, wheezes Cardiovascular exam: PRESENT: RRR. ABSENT: diastolic murmur, rubs, systolic murmur Pulses: PRESENT: normal dorsalis pedis pul GI/Abdominal exam: PRESENT: ascites Rectal exam: PRESENT: deferred Neurological exam: PRESENT: alert, awake, oriented to person, CN II-XII grossly intact. ABSENT: motor sensory deficit Results Laboratory Results: 07/18/18 04:48 07/19/18 05:15 07/19/18 07/19/18 05:15 05:15 Carbonic Acid 1.05 HCO3/H2CO3 Ratio 22:1 ABG pH 7.44 ABG pCO2 34.8 L ABG pO2 67.4 L ABG HCO3 23.3 ABG O2 Saturation 94.3 ABG Base Excess -0.4 FiO2 21% Sodium 138.9 Potassium 3.5 L Chloride 105 Carbon Dioxide 25 Anion Gap 9 BUN 11 Creatinine 0.72 Est GFR ( Amer) > 60 Est GFR (Non-Af Amer) > 60 Glucose 125 H Calcium 8.6 Magnesium 1.6 07/09/18 07/09/18 07/10/18 22:55 22:55 05:04 Creatine Kinase 40 L 41 L CK-MB (CK-2) 0.52 Troponin I < 0.012 NT-Pro-B Natriuret Pep 07/10/18 07/10/18 07/10/18 05:04 11:08 11:08 Creatine Kinase 39 L CK-MB (CK-2) 0.52 0.39 Troponin I 0.015 < 0.012 NT-Pro-B Natriuret Pep 07/11/18 04:01 Creatine Kinase CK-MB (CK-2) Troponin I NT-Pro-B Natriuret Pep 621 Impressions: Head CT 07/09/18 23:33 IMPRESSION: Limited due to motion however no evidence for acute intracranial abnormality. Pansinusitis. TECHNICAL DOCUMENTATION: Quality ID # 436: Final reports with documentation of one or more dose reduction techniques (e.g., Automated exposure control, adjustment of the mA and/or kV according to patient size, use of iterative reconstruction technique) copyright 2011 [employer]- All Rights Reserved Thyroid Ultrasound 07/15/18 08:33 IMPRESSION: LIMITED STUDY. ECHOGENIC SOFT TISSUE, INDETERMINATE, WITH NO EVIDENCE OF ABSCESS OR FLUID COLLECTION. THE PATIENT IS SCHEDULED FOR CT SCAN OF THE SOFT TISSUES OF THE NECK. Soft Tissue Neck CT 07/15/18 11:01 IMPRESSION: 1. NO SIGNIFICANT FINDING IN THE SOFT TISSUES OF THE NECK. NO EVIDENCE OF SOFT TISSUE MASS, ABSCESS, OR ADENOPATHY. 2. BILATERAL PLEURAL EFFUSIONS WITH EXTENSIVE CONSOLIDATION IN THE LEFT UPPER LOBE. 3. FLUID THROUGHOUT THE PARANASAL SINUSES. THIS MAY BE EXACERBATED BY PRESENCE OF THE NASOGASTRIC TUBE. Chest X-Ray 07/18/18 00:00 IMPRESSION: Left basilar pleural effusion and/or atelectasis and/or infiltrate. Right basilar infiltrate/atelectasis has improved somewhat, as compared with the prior chest x-ray. The side-port of the NG tube is in the region of the gastroesophageal junction. copyright 2010 [employer]- All Rights Reserved Assessment & Plan - Diagnosis (1) Acute respiratory failure with hypoxia Is this a current diagnosis for this admission?: Yes Plan: Secondary to angioedema from lisinopril. He received 2 days of solumedrol. Continue diphenhydramine. Will continue steroids for now. 07/15: Possible repeat bronch today by pulm. 07/16: Repeat bronch has been deferred as repeat chest x-rays continue to show improvement in aeration of collapsed left lung. Will proceed with weaning trials. 07/18: Currently doing well on weaning trial. Follows commands on minimal s edation. Per pulmonology, extubation tomorrow. 07/19: Patient just got extubated and so far is doing well on 4 lpm via NC. Will consult PT. (2) Collapse of left lung Is this a current diagnosis for this admission?: Yes Plan: S/P bronchoscopy on 07/14. Cultures sent from bronch washings. Continue IV antibiotics for now. 07/15: Possible repeat bronch today. 07/16: Repeat chest x-ray shows improvement in aeration of left lung. Repeat bronch deferred. (3) Pneumonia Is this a current diagnosis for this admission?: Yes Plan: Bronch washings grew Staph and Kleb. Noted sensitivity. De-escalate antibiotics to Rocephin. 07/19: Blood culture is growing GPC 1/2 bottles so far. Continue Rocephin for now. (4) Angio-edema Qualifiers: Encounter type: initial encounter Qualified Code(s): T78.3XXA - Angioneurotic edema, initial encounter Is this a current diagnosis for this admission?: Yes Plan: Secondary to lisinopril. As per number 1. Resolved. Reduce steroids and diphehydramine. 07/19: Discontinue steroids and diphenhydramine. (5) Hypokalemia Is this a current diagnosis for this admission?: Yes Plan: Getting replacement per protocol. Resolved. (6) Hypomagnesemia Is this a current diagnosis for this admission?: Yes Plan: Getting replacement per protocol. Resolved. (7) Neck mass Is this a current diagnosis for this admission?: Yes Plan: US shows possible soft tissue mass but is indeterminate. CT neck is unremarkable . TSH is normal. - Time Time Spent with patient: 25-34 minutes
[2018-07-19] MEDS: ATORVASTATIN CALCIUM 20 MG TABLET NG SCH (22:11)
[2018-07-20] MEDS: IPRATROPIUM/ALBUTEROL 0.5-2.5 MG/3 ML AMPUL NEB SCH ×3 (01:08→14:19)
[2018-07-20 04:10] LABS: ABSOLUTE BASOPHILS # (AUTO) 0.1 10^3/uL (0.0-0.2); ABSOLUTE EOSINOPHILS # (AUTO) 0.1 10^3/uL (0.0-0.6); ABSOLUTE LYMPHOCYTES (AUTO) 1.1 10^3/uL (0.5-4.7); ABSOLUTE MONOCYTES (AUTO) 1.2 10^3/uL (0.1-1.4); ARTERIAL BLOOD BASE EXCESS 5.5 mmol/L; ARTERIAL BLOOD H2CO3 1.13 mmol/L (1.05-1.35); ARTERIAL BLOOD HCO3 28.9 mmol/L (20-24); ARTERIAL BLOOD O2 SATURATION 93.4 % (94-98); ARTERIAL BLOOD PCO2 37.6 mmHg (35-45); BASOPHILS % (AUTO) 0.8 % (0-2); EOSINOPHILS % (AUTO) 0.4 % (0-6); HEMATOCRIT 31.3 % (37.9-51.0); HEMOGLOBIN 10.7 g/dL (13.5-17.0); LYMPHOCYTES % (AUTO) 6.4 % (13-45); MEAN CORPUSCULAR HEMOGLOBIN 34.7 pg (27.0-33.4); MEAN CORPUSCULAR HGB CONC 34.4 g/dL (32.0-36.0); MEAN CORPUSCULAR VOLUME 101 fl (80-97); MONOCYTES % (AUTO) 6.8 % (3-13); PLATELET COUNT 148 10^3/uL (150-450); RED CELL DISTRIBUTION WIDTH 18.1 % (11.5-14.0); SEGMENTED NEUTROPHILS % (AUTO) 85.6 % (42-78); TOTAL CELLS COUNTED % (AUTO) 100 %; WHITE BLOOD COUNT 17.5 10^3/uL (4.0-10.5)
[2018-07-20 04:11] LABS: ARTERIAL BLOOD FIO2 2L
[2018-07-20 04:32] LABS: ANION GAP 10 (5-19); BLOOD UREA NITROGEN 13 mg/dL (7-20); CALCIUM 9.4 mg/dL (8.4-10.2); CARBON DIOXIDE 28 mmol/L (22-30); CHLORIDE 102 mmol/L (98-107); GLUCOSE 108 mg/dL (75-110); POTASSIUM 3.3 mmol/L (3.6-5.0); SODIUM 140.2 mmol/L (137-145)
[2018-07-20] MEDS: POTASSI CL 20 MEQ/D5-1/2NS 1L 1,000 ML IV PRN ×3 (05:57→22:09)
[2018-07-20] MEDS: POTASSIUM CHLORIDE 20 MEQ/50 ML RTU IV SCH ×2 (05:57→07:49)
[2018-07-20] MEDS: INSULIN LISPRO 100 UNIT/ML 3 ML VIAL SUBCUT SCH ×2 (06:08→11:45)
[2018-07-20] MEDS: LISINOPRIL 10 MG TABLET PO SCH ×2 (08:00→12:16)
[2018-07-20] MEDS: ACETYLCYSTEINE 20% SOLN 800 MG/4 ML VIAL.NEB NEB SCH ×2 (08:07→20:17)
[2018-07-20] MEDS: NADOLOL 40 MG TABLET NG SCH (10:36)
[2018-07-20] MEDS: ALLOPURINOL 300 MG TABLET NG SCH (10:36)
[2018-07-20] MEDS: POTASSIUM CHLORIDE 20 MEQ/15 ML UDCUP NG SCH (10:36)
[2018-07-20] MEDS: FUROSEMIDE INJ/PF 20 MG/2 ML SDV IV SCH ×2 (10:36→21:28)
[2018-07-20] MEDS: CEFTRIAXONE 1 GM/D5W RTU 1 GM/50 ML RTUPB IV SCH (10:37)
[2018-07-20] MEDS: FAMOTIDINE INJ/PF 20 MG/2 ML SDV IV SCH ×2 (10:37→21:28)
--- NOTE | 2018-07-20 14:05 | RADIOLOGY REPORT (SQ) ---
EXAM DESCRIPTION: CHEST SINGLE VIEW COMPLETED DATE/TIME: 07/20/2018 1:46 pm REASON FOR STUDY: pna COMPARISON: 07/18/2018 EXAM PARAMETERS: NUMBER OF VIEWS: One view. TECHNIQUE: Single frontal radiographic view of the chest acquired. RADIATION DOSE: NA LIMITATIONS: None. FINDINGS: LUNGS AND PLEURA: Stable linear mild parenchymal density in the right lower lung, may rep resent infiltrate/atelectasis. Left lower lung consolidation and small pleural effusion unchanged fi ndings. Mild airspace disease suggested in the left lingula. MEDIASTINUM AND HILAR STRUCTURES: No masses. Contour normal. HEART AND VASCULAR STRUCTURES: Stable appearance. BONES: No acute findings. HARDWARE: Endotracheal and nasogastric tubes have been removed. Right internal jugular venous centr al line, stable finding. OTHER: No other significant finding. IMPRESSION: 1. Since the previous examination dated 07/18/2018, interval removal of endotracheal and nasogastric tubes. Right internal jugular central venous line remains. 2. Stable mild right lower lung infiltrate/atelectasis. 3. Left lower lung consolidation and small pleural effusion, unchanged findings. Mild airspace dise ase suggested in the left lingula. TECHNICAL DOCUMENTATION: JOB ID: [id number] [facility]- All Rights Reserved Reading location - IP/workstation name: [email or web address]
[2018-07-20] MEDS: IPRATROPIUM/ALBUTEROL 0.5-2.5 MG/3 ML AMPUL NEB PRN (20:17)
[2018-07-20] MEDS: ATORVASTATIN CALCIUM 20 MG TABLET NG SCH (21:29)
[2018-07-21 05:16] LABS: ARTERIAL BLOOD BASE EXCESS 2.3 mmol/L; ARTERIAL BLOOD H2CO3 0.92 mmol/L (1.05-1.35); ARTERIAL BLOOD HCO3 24.4 mmol/L (20-24); ARTERIAL BLOOD O2 SATURATION 97.4 % (94-98); ARTERIAL BLOOD PCO2 30.7 mmHg (35-45); ARTERIAL BLOOD PH 7.52 (7.35-7.45); ARTERIAL BLOOD PO2 86.4 mmHg (80-100); ARTERIAL BLOOD TOTAL CO2 25.4 mmol/L (23-27)
[2018-07-21 05:19] LABS: ABSOLUTE EOSINOPHILS # (AUTO) 0.4 10^3/uL (0.0-0.6); ABSOLUTE LYMPHOCYTES (AUTO) 1.1 10^3/uL (0.5-4.7); ABSOLUTE NEUT (AUTO) 11.3 10^3/uL (1.7-8.2); BASOPHILS % (AUTO) 0.3 % (0-2); EOSINOPHILS % (AUTO) 2.9 % (0-6); LYMPHOCYTES % (AUTO) 7.7 % (13-45); MEAN CORPUSCULAR HEMOGLOBIN 34.6 pg (27.0-33.4); MEAN CORPUSCULAR HGB CONC 34.4 g/dL (32.0-36.0); MEAN CORPUSCULAR VOLUME 101 fl (80-97); MONOCYTES % (AUTO) 7.5 % (3-13); PLATELET COUNT 166 10^3/uL (150-450); RED BLOOD COUNT 3.18 10^6/uL (4.35-5.55); SEGMENTED NEUTROPHILS % (AUTO) 81.6 % (42-78); TOTAL CELLS COUNTED % (AUTO) 100 %; WHITE BLOOD COUNT 13.8 10^3/uL (4.0-10.5)
[2018-07-21 05:21] LABS: ARTERIAL BLOOD FIO2 ROOM AIR
[2018-07-21 05:40] LABS: ALANINE AMINOTRANSFERASE 149 U/L (21-72); ALBUMIN 3.2 g/dL (3.5-5.0); ALKALINE PHOSPHATASE 155 U/L (38-126); ANION GAP 9 (5-19); ASPARTATE AMINO TRANSFERASE 165 U/L (17-59); BILIRUBIN,DIRECT 0.4 mg/dL (0.0-0.4); BILIRUBIN,TOTAL 0.8 mg/dL (0.2-1.3); BLOOD UREA NITROGEN 15 mg/dL (7-20); CALCIUM 9.5 mg/dL (8.4-10.2); CARBON DIOXIDE 29 mmol/L (22-30); CHLORIDE 100 mmol/L (98-107); GLUCOSE 95 mg/dL (75-110); POTASSIUM 3.6 mmol/L (3.6-5.0); TOTAL PROTEIN 6.3 g/dL (6.3-8.2)
--- NOTE | 2018-07-21 05:59 | PDOC PROGRESS REPORT ---
Subjective Progress Note for:: 07/20/18 Subjective:: The patient exhibits emotional lability. He is delusional. He does participate in the encounter but veers off tract easily and frequently. Reason For Visit: ACUTE ANGIOEDEMA WITH AIRWAY OBSTRUCTION Physical Exam Vital Signs: Temp Pulse Resp BP Pulse Ox 99.3 F 74 16 160/83 H 97 07/20/18 08:00 07/20/18 08:42 07/20/18 08:09 07/20/18 08:00 07/20/18 08:09 Intake & Output 07/19/18 07/20/18 07/21/18 06:59 06:59 06:59 Intake Total 2517 3069 97 Output Total 5455 5550 665 Balance -2939 -2481 -568 Weight 86.8 kg 81.9 kg General appearance: PRESENT: mild distress, well-developed Head exam: PRESENT: atraumatic, normocephalic Eye exam: PRESENT: conjunctiva pink. ABSENT: scleral icterus Ear exam: PRESENT: normal external ear exam Mouth exam: PRESENT: moist, tongue midline Neck exam: PRESENT: full ROM. ABSENT: carotid bruit, lymphadenopathy Respiratory exam: PRESENT: clear to auscultation jhonathan - Anteriorly, symmetrical, unlabored. ABSENT: rales, rhonchi, wheezes Cardiovascular exam: PRESENT: RRR, +S1, +S2 GI/Abdominal exam: PRESENT: normal bowel sounds, soft. ABSENT: distended, tenderness Gentrourinary exam: PRESENT: indwelling catheter Extremities exam: ABSENT: calf tenderness, pedal edema Musculoskeletal exam: PRESENT: normal inspection Neurological exam: PRESENT: alert, awake, oriented to person, oriented to place. ABSENT: oriented to situation Psychiatric exam: PRESENT: depressed. ABSENT: agitated, anxious Focused psych exam: PRESENT: delusional - Multiple tangential stories including his family kidnapping him as well as a [employer] democr[employer] in [employer]. Skin exam: PRESENT: dry, normal color, warm Results Laboratory Results: 07/20/18 03:57 07/20/18 03:57 07/20/18 07/20/18 07/20/18 03:57 03:57 03:57 WBC 17.5 H RBC 3.10 L Hgb 10.7 L Hct 31.3 L MCV 101 H MCH 34.7 H MCHC 34.4 RDW 18.1 H Plt Count 148 L Seg Neutrophils % 85.6 H Lymphocytes % 6.4 L Monocytes % 6.8 Eosinophils % 0.4 Basophils % 0.8 Absolute Neutrophils 15.0 H Absolute Lymphocytes 1.1 Absolute Monocytes 1.2 Absolute Eosinophils 0.1 Absolute Basophils 0.1 Carbonic Acid 1.13 HCO3/H2CO3 Ratio 25:1 ABG pH 7.50 H ABG pCO2 37.6 ABG pO2 61.0 L ABG HCO3 28.9 H ABG O2 Saturation 93.4 L ABG Base Excess 5.5 FiO2 2L Sodium 140.2 Potassium 3.3 L Chloride 102 Carbon Dioxide 28 Anion Gap 10 BUN 13 Creatinine 0.76 Est GFR ( Amer) > 60 Est GFR (Non-Af Amer) > 60 Glucose 108 Calcium 9.4 Magnesium 1.7 07/09/18 07/09/18 07/10/18 22:55 22:55 05:04 Creatine Kinase 40 L 41 L CK-MB (CK-2) 0.52 Troponin I < 0.012 NT-Pro-B Natriuret Pep 07/10/18 07/10/18 07/10/18 05:04 11:08 11:08 Creatine Kinase 39 L CK-MB (CK-2) 0.52 0.39 Troponin I 0.015 < 0.012 NT-Pro-B Natriuret Pep 07/11/18 04:01 Creatine Kinase CK-MB (CK-2) Troponin I NT-Pro-B Natriuret Pep 621 Impressions: Head CT 07/09/18 23:33 IMPRESSION: Limited due to motion however no evidence for acute intracranial abnormality. Pansinusitis. TECHNICAL DOCUMENTATION: Quality ID # [id number]: Final reports with documentation of one or more dose reduction techniques (e.g., Automated exposure control, adjustment of the mA and/or kV according to patient size, use of iterative reconstruction technique) copyright 2011 [employer]- All Rights Reserved Thyroid Ultrasound 07/15/18 08:33 IMPRESSION: LIMITED STUDY. ECHOGENIC SOFT TISSUE, INDETERMINATE, WITH NO EVIDENCE OF ABSCESS OR FLUID COLLECTION. THE PATIENT IS SCHEDULED FOR CT SCAN OF THE SOFT TISSUES OF THE NECK. Soft Tissue Neck CT 07/15/18 11:01 IMPRESSION: 1. NO SIGNIFICANT FINDING IN THE SOFT TISSUES OF THE NECK. NO EVIDENCE OF SOFT TISSUE MASS, ABSCESS, OR ADENOPATHY. 2. BILATERAL PLEURAL EFFUSIONS WITH EXTENSIVE CONSOLIDATION IN THE LEFT UPPER LOBE. 3. FLUID THROUGHOUT THE PARANASAL SINUSES. THIS MAY BE EXACERBATED BY PRESENCE OF THE NASOGASTRIC TUBE. Chest X-Ray 07/18/18 00:00 IMPRESSION: Left basilar pleural effusion and/or atelectasis and/or infiltrate. Right basilar infiltrate/atelectasis has improved somewhat, as compared with the prior chest x-ray. The side-port of the NG tube is in the region of the gastroesophageal junction. copyright 2011 [employer]- All Rights Reserved Assessment and Plan - Diagnosis (1) Acute respiratory failure Qualifiers: Respiratory failure complication: hypoxia Qualified Code(s): J96.01 - Acute respiratory failure with hypoxia Is this a current diagnosis for this admission?: Yes Plan: 07/20/18 19:52 Patient is successfully extubated and stable. Oxygen saturations to the 90% on room air. Ongoing antibiotic therapy for pneumonia with collapsed left upper lobe. Bronchial washing cytology positive for inflammation. No evidence of malignancy. Acute respiratory failure resolved. 07/20/18 19:52 07/21/18 05:47 (2) Pneumonia Qualifiers: Pneumonia type: due to methicillin-sensitive Staphylococcus aureus (MSSA) Laterality: bilateral Lung location: lower lobe of lung Qualified Code(s): J15.211 - Pneumonia due to Methicillin susceptible Staphylococcus aureus Is this a current diagnosis for this admission?: Yes Plan: 07/21/19 Hospital acquired pneumonia. Bilateral. Possible component of aspiration as well as prolonged intubation. Staph aureus and Klebsiella pneumonia isolated. Continue antibiotic therapy as ordered. Collapsed lung and hypoxia secondary to pneumonia improving. 07/21/18 05:50 07/21/18 05:55 (3) Collapse of left lung Is this a current diagnosis for this admission?: Yes Plan: 07/20/18 Collapsed left lower lobe secondary to pneumonia. Bronchoscopy performed. Cytology showed no malignancy just inflammatory change. Improved aeration. Continue to monitor with imaging. 07/21/18 05:51 (4) Bilateral pleural effusion Is this a current diagnosis for this admission?: Yes Plan: 07/20/18 Likely parapneumonic effusions related to pneumonia. Improving with treatment for pneumonia. 07/21/18 05:52 07/21/18 05:55 (5) Hypokalemia Is this a current diagnosis for this admission?: Yes Plan: 07/20/18 Continue to monitor serum potassium and supplement to keep potassium levels normal. 07/21/18 05:57 (6) Hypomagnesemia Is this a current diagnosis for this admission?: Yes Plan: 07/20/18 Continue to monitor serum magnesium levels. Supplement magnesium based on laboratory results. 07/21/18 05:58 (7) Angioedema of intestine due to angiotensin converting enzyme inhibitor (KARLOS- I) Is this a current diagnosis for this admission?: Yes Plan: 07/20/18 19:55 No longer on steroid therapy. Must avoid KARLOS inhibitors in the future. (8) Laceration of tongue Qualifiers: Encounter type: initial encounter Qualified Code(s): S01.512A - Laceration without foreign body of oral cavity, initial encounter Is this a current diagnosis for this admission?: Yes Plan: 07/20/18 19:55 Healed - Time Time Spent with patient: 35 or more minutes Medications reviewed and adjusted accordingly: Yes Anticipated discharge: Home
[2018-07-21] MEDS: POTASSI CL 20 MEQ/D5-1/2NS 1L 1,000 ML IV PRN ×2 (06:36→15:49)
[2018-07-21] MEDS: IPRATROPIUM/ALBUTEROL 0.5-2.5 MG/3 ML AMPUL NEB PRN (07:50)
[2018-07-21] MEDS: ACETYLCYSTEINE 20% SOLN 800 MG/4 ML VIAL.NEB NEB SCH ×2 (07:50→19:09)
[2018-07-21] MEDS: NADOLOL 40 MG TABLET NG SCH (10:50)
[2018-07-21] MEDS: ALLOPURINOL 300 MG TABLET NG SCH (10:51)
[2018-07-21] MEDS: POTASSIUM CHLORIDE 20 MEQ/15 ML UDCUP NG SCH (10:54)
[2018-07-21] MEDS: FUROSEMIDE INJ/PF 20 MG/2 ML SDV IV SCH (10:56)
[2018-07-21] MEDS: CEFTRIAXONE 1 GM/D5W RTU 1 GM/50 ML RTUPB IV SCH (10:57)
[2018-07-21] MEDS: FAMOTIDINE INJ/PF 20 MG/2 ML SDV IV SCH ×2 (10:57→22:22)
--- NOTE | 2018-07-21 18:14 | PDOC PROGRESS REPORT ---
Subjective Progress Note for:: 07/21/18 Subjective:: Awake and alert. Much improved from yesterday. Actually answered most questions correctly with regard to orientation. Or if there was an incorrect answer he corrected it quickly. Reason For Visit: ACUTE ANGIOEDEMA WITH AIRWAY OBSTRUCTION Elevated transaminases Physical Exam Vital Signs: Temp Pulse Resp BP Pulse Ox 99.5 F 74 18 150/85 H 97 07/21/18 07:26 07/21/18 07:53 07/21/18 07:53 07/21/18 07:26 07/21/18 07:53 Intake & Output 07/20/18 07/21/18 07/22/18 06:59 06:59 06:59 Intake Total 3069 3047 Output Total 5550 5610 200 Balance -2481 -2563 -200 Weight 81.9 kg 79.5 kg General appearance: PRESENT: no acute distress, cooperative, well-developed Head exam: PRESENT: atraumatic, normocephalic Eye exam: PRESENT: conjunctiva pink. ABSENT: scleral icterus Mouth exam: PRESENT: moist, tongue midline Neck exam: ABSENT: carotid bruit, lymphadenopathy Respiratory exam: PRESENT: rhonchi, symmetrical, unlabored. ABSENT: rales, wheezes Cardiovascular exam: PRESENT: RRR, +S1, +S2 GI/Abdominal exam: PRESENT: normal bowel sounds, soft. ABSENT: distended, tenderness Rectal exam: PRESENT: deferred Gentrourinary exam: PRESENT: indwelling catheter Extremities exam: ABSENT: pedal edema Musculoskeletal exam: PRESENT: normal inspection Neurological exam: PRESENT: alert, awake, oriented to person, oriented to place, oriented to time - He did have the month and day of the week correct. Initial answer for year was incorrect but he quickly gave the right answer. Psychiatric exam: PRESENT: appropriate affect. ABSENT: agitated, anxious Focused psych exam: ABSENT: delusional - At this time. Staff reports that he had episodes of delusions last night Skin exam: PRESENT: petechiae Results Laboratory Results: 07/21/18 04:55 07/21/18 05:00 07/21/18 07/21/18 07/21/18 04:55 04:55 04:55 WBC 13.8 H RBC 3.18 L Hgb 11.0 L Hct 32.0 L MCV 101 H MCH 34.6 H MCHC 34.4 RDW 18.0 H Plt Count 166 Seg Neutrophils % 81.6 H Lymphocytes % 7.7 L Monocytes % 7.5 Eosinophils % 2.9 Basophils % 0.3 Absolute Neutrophils 11.3 H Absolute Lymphocytes 1.1 Absolute Monocytes 1.0 Absolute Eosinophils 0.4 Absolute Basophils 0.0 Carbonic Acid 0.92 L HCO3/H2CO3 Ratio 26:1 ABG pH 7.52 H ABG pCO2 30.7 L ABG pO2 86.4 ABG HCO3 24.4 H ABG O2 Saturation 97.4 ABG Base Excess 2.3 FiO2 ROOM AIR Sodium 138.0 Potassium 3.6 Chloride 100 Carbon Dioxide 29 Anion Gap 9 BUN 15 Creatinine 0.75 Est GFR ( Amer) > 60 Est GFR (Non-Af Amer) > 60 Glucose 95 Calcium 9.5 Magnesium 1.6 Total Bilirubin 0.8 AST 165 H ALT 149 H Alkaline Phosphatase 155 H Total Protein 6.3 Albumin 3.2 L 07/21/18 05:00 WBC RBC Hgb Hct MCV MCH MCHC RDW Plt Count Seg Neutrophils % Lymphocytes % Monocytes % Eosinophils % Basophils % Absolute Neutrophils Absolute Lymphocytes Absolute Monocytes Absolute Eosinophils Absolute Basophils Carbonic Acid HCO3/H2CO3 Ratio ABG pH ABG pCO2 ABG pO2 ABG HCO3 ABG O2 Saturation ABG Base Excess FiO2 Sodium Cancelled Potassium Cancelled Chloride Cancelled Carbon Dioxide Cancelled Anion Gap Cancelled BUN Cancelled Creatinine Cancelled Est GFR ( Amer) Cancelled Est GFR (Non-Af Amer) Cancelled Glucose Cancelled Calcium Cancelled Magnesium Total Bilirubin AST ALT Alkaline Phosphatase Total Protein Albumin 07/18/18 03:18 Blood Blood Culture - Final Staphylococcus Hominis 07/09/18 07/09/18 07/10/18 22:55 22:55 05:04 Creatine Kinase 40 L 41 L CK-MB (CK-2) 0.52 Troponin I < 0.012 NT-Pro-B Natriuret Pep 07/10/18 07/10/18 07/10/18 05:04 11:08 11:08 Creatine Kinase 39 L CK-MB (CK-2) 0.52 0.39 Troponin I 0.015 < 0.012 NT-Pro-B Natriuret Pep 07/11/18 04:01 Creatine Kinase CK-MB (CK-2) Troponin I NT-Pro-B Natriuret Pep 621 Impressions: Head CT 07/09/18 23:33 IMPRESSION: Limited due to motion however no evidence for acute intracranial abnormality. Pansinusitis. TECHNICAL DOCUMENTATION: Quality ID # [id number]: Final reports with documentation of one or more dose reduction techniques (e.g., Automated exposure control, adjustment of the mA and/or kV according to patient size, use of iterative reconstruction technique) copyright 2010 [employer]- All Rights Reserved Thyroid Ultrasound 07/15/18 08:33 IMPRESSION: LIMITED STUDY. ECHOGENIC SOFT TISSUE, INDETERMINATE, WITH NO EVIDENCE OF ABSCESS OR FLUID COLLECTION. THE PATIENT IS SCHEDULED FOR CT SCAN OF THE SOFT TISSUES OF THE NECK. Soft Tissue Neck CT 07/15/18 11:01 IMPRESSION: 1. NO SIGNIFICANT FINDING IN THE SOFT TISSUES OF THE NECK. NO EVIDENCE OF SOFT TISSUE MASS, ABSCESS, OR ADENOPATHY. 2. BILATERAL PLEURAL EFFUSIONS WITH EXTENSIVE CONSOLIDATION IN THE LEFT UPPER LOBE. 3. FLUID THROUGHOUT THE PARANASAL SINUSES. THIS MAY BE EXACERBATED BY PRESENCE OF THE NASOGASTRIC TUBE. Chest X-Ray 07/20/18 08:00 IMPRESSION: 1. Since the previous examination dated 07/18/2018, interval removal of endotracheal and nasogastric tubes. Right internal jugular central venous line remains. 2. Stable mild right lower lung infiltrate/atelectasis. 3. Left lower lung consolidation and small pleural effusion, unchanged findings. Mild airspace disease suggested in the left lingula. Assessment and Plan - Diagnosis (1) Acute respiratory failure Qualifiers: Respiratory failure complication: hypoxia Qualified Code(s): J96.01 - Acute respiratory failure with hypoxia Is this a current diagnosis for this admission?: Yes Plan: Secondary to acute angioedema of the tongue with subsequent pneumonia. Resolved (2) Pneumonia Qualifiers: Pneumonia type: due to methicillin-sensitive Staphylococcus aureus (MSSA) Laterality: bilateral Lung location: lower lobe of lung Qualified Code(s): J15.211 - Pneumonia due to Methicillin susceptible Staphylococcus aureus Is this a current diagnosis for this admission?: Yes Plan: 07/20/18 Hospital acquired pneumonia. Bilateral. Possible component of aspiration as well as prolonged intubation. Staph aureus and Klebsiella pneumonia isolated. Continue antibiotic therapy as ordered. Collapsed lung and hypoxia secondary to pneumonia improving. July 21, 2018 The patient continues on ceftriaxone. His transaminases are elevated. I will recheck them again tomorrow. If the increase I will need to substitute a different medication for the ceftriaxone since there is a 3-5% chance for elevation of liver enzymes. (3) Collapse of left lung Is this a current diagnosis for this admission?: Yes Plan: 07/20/18 Collapsed left lower lobe secondary to pneumonia. Bronchoscopy performed. Cytology showed no malignancy just inflammatory change. Improved aeration. Continue to monitor with imaging. 07/21/18 Improved aeration of lung. Repeat chest x-ray tomorrow. (4) Bilateral pleural effusion Is this a current diagnosis for this admission?: Yes Plan: 07/20/18 Likely parapneumonic effusions related to pneumonia. Improving with treatment for pneumonia. 07/21/2018 As noted above they seem to be improving. Repeat chest x-ray tomorrow. (5) Delirium due to another medical condition Is this a current diagnosis for this admission?: Yes Plan: The patient did exhibit delirium. It seems to be getting better each day. It is likely related to the combination of his pneumonia, acute critical illness with extended stay in the intensive care unit and possibly a reaction to antibiotic therapy. Continue to monitor. (6) Hypokalemia Is this a current diagnosis for this admission?: Yes Plan: Serum potassium today is just in the normal range. I have increased the potassium chloride to 20 mEq twice a day. Continue to follow serum potassium levels. (7) Hypomagnesemia Is this a current diagnosis for this admission?: Yes Plan: Initiate magnesium oxide 400 mg daily and monitor magnesium level (8) Angioedema of intestine due to angiotensin converting enzyme inhibitor (KARLOS- I) Is this a current diagnosis for this admission?: Yes Plan: Resolved. Lisinopril is now listed as an allergy. He should avoid all KARLOS inhibitors and possibly angiotensin receptor blockers. (9) Laceration of tongue Qualifiers: Encounter type: initial encounter Qualified Code(s): S01.512A - Laceration without foreign body of oral cavity, initial encounter Is this a current diagnosis for this admission?: Yes Plan: 07/20/18 19:55 Healed - Time Time Spent with patient: 15-24 minutes Medications reviewed and adjusted accordingly: Yes Anticipated discharge: Home
[2018-07-21] MEDS ORDERED: POTASSIUM CHLORIDE 20 MEQ/15 ML UDCUP NG SCH (18:15)
[2018-07-21] MEDS: ATORVASTATIN CALCIUM 20 MG TABLET PO SCH (22:23)
[2018-07-22] MEDS: POTASSI CL 20 MEQ/D5-1/2NS 1L 1,000 ML IV PRN (00:40)
[2018-07-22 06:30] LABS: ABSOLUTE BASOPHILS # (AUTO) 0.1 10^3/uL (0.0-0.2); ABSOLUTE EOSINOPHILS # (AUTO) 0.3 10^3/uL (0.0-0.6); ABSOLUTE NEUT (AUTO) 10.4 10^3/uL (1.7-8.2); BASOPHILS % (AUTO) 0.5 % (0-2); EOSINOPHILS % (AUTO) 2.6 % (0-6); HEMATOCRIT 32.5 % (37.9-51.0); HEMOGLOBIN 11.3 g/dL (13.5-17.0); LYMPHOCYTES % (AUTO) 8.1 % (13-45); MEAN CORPUSCULAR HEMOGLOBIN 34.8 pg (27.0-33.4); MEAN CORPUSCULAR HGB CONC 34.9 g/dL (32.0-36.0); MEAN CORPUSCULAR VOLUME 100 fl (80-97); MONOCYTES % (AUTO) 7.7 % (3-13); PLATELET COUNT 180 10^3/uL (150-450); RED BLOOD COUNT 3.25 10^6/uL (4.35-5.55); SEGMENTED NEUTROPHILS % (AUTO) 81.1 % (42-78); TOTAL CELLS COUNTED % (AUTO) 100 %; WHITE BLOOD COUNT 12.8 10^3/uL (4.0-10.5)
[2018-07-22 06:55] LABS: ALANINE AMINOTRANSFERASE 180 U/L (21-72); ALBUMIN 3.3 g/dL (3.5-5.0); ALKALINE PHOSPHATASE 182 U/L (38-126); ANION GAP 13 (5-19); ASPARTATE AMINO TRANSFERASE 153 U/L (17-59); BILIRUBIN,DIRECT 0.5 mg/dL (0.0-0.4); BLOOD UREA NITROGEN 13 mg/dL (7-20); CALCIUM 9.4 mg/dL (8.4-10.2); CARBON DIOXIDE 25 mmol/L (22-30); CHLORIDE 100 mmol/L (98-107); GLUCOSE 86 mg/dL (75-110); POTASSIUM 3.8 mmol/L (3.6-5.0); SODIUM 137.7 mmol/L (137-145); TOTAL PROTEIN 6.4 g/dL (6.3-8.2)
[2018-07-22] MEDS: ACETYLCYSTEINE 20% SOLN 800 MG/4 ML VIAL.NEB NEB SCH ×2 (09:07→20:34)
[2018-07-22] MEDS: IPRATROPIUM/ALBUTEROL 0.5-2.5 MG/3 ML AMPUL NEB PRN ×2 (09:07→20:34)
--- NOTE | 2018-07-22 09:13 | PDOC PROGRESS REPORT ---
Subjective Progress Note for:: 07/22/18 Subjective:: Patient still intubated chest x-ray done this morning shows complete wiping out of the left side of the chest most likely secondary to mucous plug. I discussed with Dr. Colunga is going to do the bronchoscopy this morning. We are going to do the follow-up chest x-ray after that. And temperature is 102.6. To start him on IV antibiotic therapy septic work is going to be ordered. 07/22/2018-patient was transferred from ICU to [facility] yesterday. No acute events in the last 24 hours. Patient is afebrile. T-max is 98.2. Blood pressure is 138/81. Comfortably in the bed communicating very well. Denies any problems. Main concern is elevated LFTs are was placed for liver ultrasound today. Plan is to discontinue IV Rocephin and IV levofloxacin 500 mg daily. medication change confirmed with Rachel in the pharmacy. Reason For Visit: ACUTE ANGIOEDEMA WITH AIRWAY OBSTRUCTION Physical Exam Vital Signs: Temp Pulse Resp BP Pulse Ox 98.2 F 75 24 H 138/81 H 97 07/21/18 19:38 07/22/18 02:00 07/21/18 19:38 07/21/18 19:38 07/21/18 19:38 Intake & Output 07/21/18 07/22/18 07/23/18 06:59 06:59 06:59 Intake Total 3047 2050 Output Total 5610 1420 Balance -2563 630 Weight 79.5 kg 81.7 kg General appearance: PRESENT: no acute distress Head exam: PRESENT: atraumatic Eye exam: PRESENT: PERRLA Mouth exam: PRESENT: moist, tongue midline Neck exam: ABSENT: carotid bruit, JVD, lymphadenopathy, thyromegaly Respiratory exam: PRESENT: decreased breath sounds Cardiovascular exam: PRESENT: RRR. ABSENT: diastolic murmur, rubs, systolic murmur GI/Abdominal exam: PRESENT: normal bowel sounds, soft, other - Abdominal was soft nontender palpation of the right upper quadrant patient denies any pain. There was no rigidity no obvious tenderness.. ABSENT: distended, guarding, mass, organolmegaly, rebound, tenderness Extremities exam: PRESENT: full ROM. ABSENT: calf tenderness, clubbing, pedal edema Neurological exam: PRESENT: alert, awake, oriented to person, oriented to place, oriented to time, oriented to situation, CN II-XII grossly intact. ABSENT: motor sensory deficit Results Laboratory Results: 07/22/18 05:14 07/22/18 05:14 07/22/18 07/22/18 05:14 05:14 WBC 12.8 H RBC 3.25 L Hgb 11.3 L Hct 32.5 L MCV 100 H MCH 34.8 H MCHC 34.9 RDW 18.0 H Plt Count 180 Seg Neutrophils % 81.1 H Lymphocytes % 8.1 L Monocytes % 7.7 Eosinophils % 2.6 Basophils % 0.5 Absolute Neutrophils 10.4 H Absolute Lymphocytes 1.0 Absolute Monocytes 1.0 Absolute Eosinophils 0.3 Absolute Basophils 0.1 Sodium 137.7 Potassium 3.8 Chloride 100 Carbon Dioxide 25 Anion Gap 13 BUN 13 Creatinine 0.77 Est GFR ( Amer) > 60 Est GFR (Non-Af Amer) > 60 Glucose 86 Calcium 9.4 Magnesium 1.7 Total Bilirubin 1.0 AST 153 H ALT 180 H Alkaline Phosphatase 182 H Total Protein 6.4 Albumin 3.3 L 07/18/18 03:18 Blood Blood Culture - Final Staphylococcus Hominis 07/09/18 07/09/18 07/10/18 22:55 22:55 05:04 Creatine Kinase 40 L 41 L CK-MB (CK-2) 0.52 Troponin I < 0.012 NT-Pro-B Natriuret Pep 07/10/18 07/10/18 07/10/18 05:04 11:08 11:08 Creatine Kinase 39 L CK-MB (CK-2) 0.52 0.39 Troponin I 0.015 < 0.012 NT-Pro-B Natriuret Pep 07/11/18 04:01 Creatine Kinase CK-MB (CK-2) Troponin I NT-Pro-B Natriuret Pep 621 Impressions: Head CT 07/09/18 23:33 IMPRESSION: Limited due to motion however no evidence for acute intracranial abnormality. Pansinusitis. TECHNICAL DOCUMENTATION: Quality ID # [id number]: Final reports with documentation of one or more dose reduction techniques (e.g., Automated exposure control, adjustment of the mA and/or kV according to patient size, use of iterative reconstruction technique) copyright 2011 [employer]- All Rights Reserved Thyroid Ultrasound 07/15/18 08:33 IMPRESSION: LIMITED STUDY. ECHOGENIC SOFT TISSUE, INDETERMINATE, WITH NO EVIDENCE OF ABSCESS OR FLUID COLLECTION. THE PATIENT IS SCHEDULED FOR CT SCAN OF THE SOFT TISSUES OF THE NECK. Soft Tissue Neck CT 07/15/18 11:01 IMPRESSION: 1. NO SIGNIFICANT FINDING IN THE SOFT TISSUES OF THE NECK. NO EVIDENCE OF SOFT TISSUE MASS, ABSCESS, OR ADENOPATHY. 2. BILATERAL PLEURAL EFFUSIONS WITH EXTENSIVE CONSOLIDATION IN THE LEFT UPPER LOBE. 3. FLUID THROUGHOUT THE PARANASAL SINUSES. THIS MAY BE EXACERBATED BY PRESENCE OF THE NASOGASTRIC TUBE. Assessment and Plan - Diagnosis (1) Acute respiratory failure Qualifiers: Respiratory failure complication: hypoxia Qualified Code(s): J96.01 - Acute respiratory failure with hypoxia Is this a current diagnosis for this admission?: Yes Plan: Secondary to acute angioedema of the tongue with subsequent pneumonia. Resolved 07/22/2018-patient's pulse ox is 97% on room air. Acute respiratory failure secondary to angioedema of the tongue and subsequent pneumonia is resolved. She is presently on DuoNeb nebulizations every 6 as needed and Mucomyst 600 mg nebs twice a day. Plan is to continue the present management. Chest x-ray was done this morning I personally reviewed the chest x-ray from did not see any pleural effusions and there is m improvement in pneumonia compared to the previous x- rays. Plan is to change the IV Rocephin to IV Levaquin today. (2) Laceration of tongue Qualifiers: Encounter type: initial encounter Qualified Code(s): S01.512A - Laceration without foreign body of oral cavity, initial encounter Is this a current diagnosis for this admission?: Yes (3) Collapse of left lung Is this a current diagnosis for this admission?: Yes (4) Sepsis Is this a current diagnosis for this admission?: Yes (5) Hypokalemia Is this a current diagnosis for this admission?: Yes (6) Pneumonia Qualifiers: Pneumonia type: due to methicillin-sensitive Staphylococcus aureus (MSSA) Laterality: bilateral Lung location: lower lobe of lung Qualified Code(s): J15.211 - Pneumonia due to Methicillin susceptible Staphylococcus aureus Is this a current diagnosis for this admission?: Yes Plan: 07/20/18 Hospital acquired pneumonia. Bilateral. Possible component of aspiration as well as prolonged intubation. Staph aureus and Klebsiella pneumonia isolated. Continue antibiotic therapy as ordered. Collapsed lung and hypoxia secondary to pneumonia improving. July 21, 2018 The patient continues on ceftriaxone. His transaminases are elevated. I will recheck them again tomorrow. If the increase I will need to substitute a different medication for the ceftriaxone since there is a 3-5% chance for elevation of liver enzymes. 07/22/2018-chest x-ray was done today I did not see any pleural effusions for me it looks like pneumonia is improving. Patient is on IV ceftriaxone because of the elevated liver enzymes I am going to switch to IV Levaquin this which was confirmed with Rachel in the pharmacy. And is to repeat the chest x-ray tomorrow. Sputum culture from 07/16/2018 showing Staphylococcus aureus, Klebsiella pneumonia. Both organisms are sensitive to levofloxacin. (7) Collapse of left lung Is this a current diagnosis for this admission?: Yes Plan: -Collapsed left lower lobe secondary to pneumonia. Bronchoscopy performed. Cytology showed no malignancy just inflammatory change. Improved aeration. Continue to monitor with imaging. 07/21/18 Improved aeration of lung. Repeat chest x-ray tomorrow. 07/22/2018 collapse of the left lower lobe secondary to pneumonia status post bronchoscopy, cytology is negative for malignancy positive for inflammatory amber nge. Latest chest x-ray did not show any collapsed lung. Repeat chest x-ray was done this morning. Pulse ox is 98% on room air. Plan is to continue the present management. (8) Bilateral pleural effusion Is this a current diagnosis for this admission?: Yes Plan: 07/20/18 Likely parapneumonic effusions related to pneumonia. Improving with treatment for pneumonia. 07/21/2018 As noted above they seem to be improving. Repeat chest x-ray tomorrow. 07/22/2018-shows bilateral pleural effusions repeat chest x-ray was done today. Patient is not any respiratory distress. Presently on Mucomyst and albuterol nebulizations and IV levofloxacin plan is to continue the present management. (9) Delirium due to another medical condition Is this a current diagnosis for this admission?: Yes Plan: The patient did exhibit delirium. It seems to be getting better each day. It is likely related to the combination of his pneumonia, acute critical illness with extended stay in the intensive care unit and possibly a reaction to antibiotic therapy. Continue to monitor. 07/22/2018-patient is alert and awake communicating very well. Delirium due to medications improved. This is hospital-acquired condition. Most likely secondary to pneumonia and multiple comorbidities acute illness and extensive stay in the intensive care. (10) Hypokalemia Is this a current diagnosis for this admission?: Yes Plan: 07/22/2018-patient's latest potassium level is 3.8 and he is presently on potassium 20 mg p.o. twice daily hypokalemia resolved plan is to check the labs on daily basis. (11) Hypomagnesemia Is this a current diagnosis for this admission?: Yes Plan: Initiate magnesium oxide 400 mg daily and monitor magnesium level 07/22/2018-patient's magnesium level is 1.7 presently is receiving 400 mg of magnesium daily it was increased to 800 mg p.o. daily today. Plan to check the magnesium levels tomorrow. (12) Angioedema of intestine due to angiotensin converting enzyme inhibitor (KARLOS-I) Is this a current diagnosis for this admission?: Yes Plan: Resolved. Lisinopril is now listed as an allergy. He should avoid all KARLOS inhibitors and possibly angiotensin receptor blockers. 3 19-angioedema of the intestines due to KARLOS inhibitor is resolved. Patient is advised to not to take KARLOS or ARB from now. (13) Hypertension Qualifiers: Hypertension type: essential hypertension Qualified Code(s): I10 - Essential (primary) hypertension Is this a current diagnosis for this admission?: No Plan: 07/22/2018 patient has history of hypertension blood pressure today is 138/81. Patient is presently on nadolol 80 mg p.o. daily plan is to continue the present management. (14) Transaminitis Is this a current diagnosis for this admission?: Yes Plan: 07/22/2018 elevated liver enzymes after the admission. May be secondary to IV Rocephin. Antibiotics is switched to IV Levaquin 500 mg daily. plan is to recheck the LFTs tomorrow. Liver ultrasound was requested. - Time Time Spent with patient: 15-24 minutes Smoking Cessation Education: over 10 minutes Anticipated discharge: SNF
[2018-07-22 09:20] LABS: ARTERIAL BLOOD BASE EXCESS 1.5 mmol/L; ARTERIAL BLOOD FIO2 ROOM AIR; ARTERIAL BLOOD HCO3 24.5 mmol/L (20-24); ARTERIAL BLOOD O2 SATURATION 96.1 % (94-98); ARTERIAL BLOOD PCO2 33.3 mmHg (35-45); ARTERIAL BLOOD PH 7.48 (7.35-7.45); ARTERIAL BLOOD PO2 75.5 mmHg (80-100); ARTERIAL BLOOD TOTAL CO2 25.5 mmol/L (23-27)
--- NOTE | 2018-07-22 09:52 | RADIOLOGY REPORT (SQ) ---
EXAM DESCRIPTION: CHEST SINGLE VIEW COMPLETED DATE/TIME: 07/22/2018 9:08 am REASON FOR STUDY: Pneumonia COMPARISON: Chest films 07/11/2018, 07/16/2018, 07/18/2018, 07/20/2018 EXAM PARAMETERS: NUMBER OF VIEWS: One view. TECHNIQUE: Single frontal radiographic view of the chest acquired. RADIATION DOSE: NA LIMITATIONS: None. FINDINGS: LUNGS AND PLEURA: Minimal residual left retrocardiac and right basilar bandlike airspace d isease. Significant clearing of airspace disease left lung compared to 07/20/2018 and 07/18/2018. No pleural effusion. No pneumothorax. MEDIASTINUM AND HILAR STRUCTURES: No masses. Contour normal. HEART AND VASCULAR STRUCTURES: Heart normal in size. Normal vasculature. BONES: No acute findings. HARDWARE: Right jugular line tip superior vena cava. Clips right upper quadrant post cholecystectomy OTHER: No other significant finding. IMPRESSION: Continued partial clearing of the left lung infiltrate compared to previous studies TECHNICAL DOCUMENTATION: JOB ID: [id number] [employer]- All Rights Reserved Reading location - IP/workstation name: [email or web address]
[2018-07-22] MEDS ORDERED: MAGNESIUM OXIDE 400 MG TABLET PO SCH ×2 (10:00)
[2018-07-22] MEDS: NADOLOL 40 MG TABLET PO SCH (12:19)
[2018-07-22] MEDS: LEVOFLOXACIN 500 MG/D5W RTU 500 MG/100 ML RTUPB IV SCH (12:19)
[2018-07-22] MEDS: POTASSIUM CHLORIDE 10 MEQ CAPSULE.ER PO SCH ×2 (12:20→18:19)
[2018-07-22] MEDS: FUROSEMIDE 20 MG TABLET PO SCH ×2 (12:20→18:20)
[2018-07-22] MEDS: FAMOTIDINE 20 MG TABLET PO SCH ×2 (12:21→21:44)
[2018-07-22] MEDS: ALLOPURINOL 300 MG TABLET PO SCH (12:21)
--- NOTE | 2018-07-22 15:28 | RADIOLOGY REPORT (SQ) ---
EXAM DESCRIPTION: U/S ABDOMEN LIMITED W/O DOP COMPLETED DATE/TIME: 07/22/2018 2:56 pm REASON FOR STUDY: elevated lfts COMPARISON: None. TECHNIQUE: Dynamic and static grayscale images acquired of the abdomen and recorded on PACS. Additio nal selected color Doppler and spectral images recorded. LIMITATIONS: None. FINDINGS: PANCREAS: No masses. Visualized pancreatic duct normal caliber. LIVER: No masses. Echotexture normal. LIVER VASCULATURE: Normal directional flow of the main portal vein and hepatic veins. GALLBLADDER: Surgically absent. ULTRASOUND-DETECTED ANGELES'S SIGN: Not applicable. INTRAHEPATIC DUCTS AND COMMON DUCT: CBD and intrahepatic ducts normal caliber. No filling defects. INFERIOR VENA CAVA: Normal flow. AORTA: No aneurysm. RIGHT KIDNEY: Normal size. Normal echogenicity. No solid or suspicious masses. No hydronephrosis. No calcifications. PERITONEAL AND RIGHT PLEURAL SPACE: No ascites or effusions. OTHER: No other significant findings. IMPRESSION: NORMAL RIGHT UPPER QUADRANT ULTRASOUND. TECHNICAL DOCUMENTATION: JOB ID: [id number] [employer]- All Rights Reserved Reading location - IP/workstation name: [email or web address]
[2018-07-22] MEDS: ATORVASTATIN CALCIUM 20 MG TABLET PO SCH (21:44)
[2018-07-22] MEDS ORDERED: ZOLPIDEM TARTRATE 5 MG TABLET PO PRN (22:08)
[2018-07-22] MEDS: ZOLPIDEM TARTRATE 5 MG TABLET PO PRN (23:28)
[2018-07-23] MEDS: ZOLPIDEM TARTRATE 5 MG TABLET PO PRN ×2 (00:48→21:49)
[2018-07-23 06:39] LABS: ABSOLUTE BASOPHILS # (AUTO) 0.1 10^3/uL (0.0-0.2); ABSOLUTE EOSINOPHILS # (AUTO) 0.2 10^3/uL (0.0-0.6); ABSOLUTE MONOCYTES (AUTO) 0.9 10^3/uL (0.1-1.4); ABSOLUTE NEUT (AUTO) 9.2 10^3/uL (1.7-8.2); BASOPHILS % (AUTO) 0.8 % (0-2); HEMATOCRIT 32.9 % (37.9-51.0); HEMOGLOBIN 11.2 g/dL (13.5-17.0); LYMPHOCYTES % (AUTO) 9.1 % (13-45); MEAN CORPUSCULAR HEMOGLOBIN 34.3 pg (27.0-33.4); MEAN CORPUSCULAR HGB CONC 34.1 g/dL (32.0-36.0); MEAN CORPUSCULAR VOLUME 101 fl (80-97); MONOCYTES % (AUTO) 7.9 % (3-13); PLATELET COUNT 174 10^3/uL (150-450); RED BLOOD COUNT 3.27 10^6/uL (4.35-5.55); RED CELL DISTRIBUTION WIDTH 18.4 % (11.5-14.0); SEGMENTED NEUTROPHILS % (AUTO) 80.2 % (42-78); TOTAL CELLS COUNTED % (AUTO) 100 %; WHITE BLOOD COUNT 11.5 10^3/uL (4.0-10.5)
[2018-07-23 07:22] LABS: ALANINE AMINOTRANSFERASE 149 U/L (21-72); ALBUMIN 3.4 g/dL (3.5-5.0); ALKALINE PHOSPHATASE 175 U/L (38-126); ANION GAP 12 (5-19); ASPARTATE AMINO TRANSFERASE 93 U/L (17-59); BILIRUBIN,DIRECT 0.3 mg/dL (0.0-0.4); BILIRUBIN,TOTAL 0.8 mg/dL (0.2-1.3); BLOOD UREA NITROGEN 17 mg/dL (7-20); CALCIUM 9.7 mg/dL (8.4-10.2); CARBON DIOXIDE 24 mmol/L (22-30); CHLORIDE 102 mmol/L (98-107); GLUCOSE 84 mg/dL (75-110); POTASSIUM 3.9 mmol/L (3.6-5.0); SODIUM 137.5 mmol/L (137-145); TOTAL PROTEIN 6.5 g/dL (6.3-8.2)
[2018-07-23] MEDS: ACETYLCYSTEINE 20% SOLN 800 MG/4 ML VIAL.NEB NEB SCH (07:53)
--- NOTE | 2018-07-23 08:43 | PDOC PROGRESS REPORT ---
Subjective Progress Note for:: 07/23/18 Subjective:: Patient still intubated chest x-ray done this morning shows complete wiping out of the left side of the chest most likely secondary to mucous plug. I discussed with Dr. Colunga is going to do the bronchoscopy this morning. We are going to do the follow-up chest x-ray after that. And temperature is 102.6. To start him on IV antibiotic therapy septic work is going to be ordered. 07/22/2018-patient was transferred from ICU to [facility] yesterday. No acute events in the last 24 hours. Patient is afebrile. T-max is 98.2. Blood pressure is 138/81. Comfortably in the bed communicating very well. Denies any problems. Main concern is elevated LFTs are was placed for liver ultrasound today. Plan is to discontinue IV Rocephin and IV levofloxacin 500 mg daily. medication change confirmed with Rachel in the pharmacy. 07/23/2018 no acute events in the last 24 hours. Patient is afebrile. T-max is 97.3. Ultrasound of the liver was done yesterday for elevated liver enzymes report came back normal. Antibiotics switched from IV Rocephin to p.o. levofloxacin LFTs are coming down. It is comfortably in the bed denies any complaints. Nurse told me patient is extremely weak he cannot even stand on his home yesterday he is more almost fell onto the floor on standing physical therapy is working with the patient. senior planner spoke to the patient and his mother they are requesting that patient to be discharged home when he is ready with home health. Patient is not ready to go home yet. Reason For Visit: ACUTE ANGIOEDEMA WITH AIRWAY OBSTRUCTION Physical Exam Vital Signs: Temp Pulse Resp BP Pulse Ox 97.3 F 84 16 111/73 93 07/23/18 03:15 07/23/18 07:57 07/23/18 07:57 07/23/18 03:15 07/23/18 07:57 Intake & Output 07/22/18 07/23/18 07/24/18 06:59 06:59 06:59 Intake Total 2050 1673 Output Total 1420 1275 Balance 630 398 Weight 81.7 kg 81.3 kg General appearance: PRESENT: no acute distress Head exam: PRESENT: atraumatic Eye exam: PRESENT: PERRLA Mouth exam: PRESENT: moist, tongue midline Neck exam: ABSENT: carotid bruit, JVD, lymphadenopathy, thyromegaly Respiratory exam: PRESENT: clear to auscultation jhonathan. ABSENT: rales, rhonchi, wheezes Cardiovascular exam: PRESENT: RRR. ABSENT: diastolic murmur, rubs, systolic murmur GI/Abdominal exam: PRESENT: normal bowel sounds, soft. ABSENT: distended, guard ing, mass, organolmegaly, rebound, tenderness Extremities exam: PRESENT: full ROM. ABSENT: calf tenderness, clubbing, pedal edema Neurological exam: PRESENT: alert, awake, oriented to person, oriented to place, oriented to time, oriented to situation, CN II-XII grossly intact. ABSENT: motor sensory deficit Psychiatric exam: PRESENT: appropriate affect, normal mood. ABSENT: homicidal ideation, suicidal ideation Results Laboratory Results: 07/23/18 05:55 07/23/18 05:55 07/22/18 07/23/18 07/23/18 09:00 05:55 05:55 WBC 11.5 H RBC 3.27 L Hgb 11.2 L Hct 32.9 L MCV 101 H MCH 34.3 H MCHC 34.1 RDW 18.4 H Plt Count 174 Seg Neutrophils % 80.2 H Lymphocytes % 9.1 L Monocytes % 7.9 Eosinophils % 2.0 Basophils % 0.8 Absolute Neutrophils 9.2 H Absolute Lymphocytes 1.0 Absolute Monocytes 0.9 Absolute Eosinophils 0.2 Absolute Basophils 0.1 Carbonic Acid 1.00 L HCO3/H2CO3 Ratio 24:1 ABG pH 7.48 H ABG pCO2 33.3 L ABG pO2 75.5 L ABG HCO3 24.5 H ABG O2 Saturation 96.1 ABG Base Excess 1.5 FiO2 ROOM AIR Sodium 137.5 Potassium 3.9 Chloride 102 Carbon Dioxide 24 Anion Gap 12 BUN 17 Creatinine 0.85 Est GFR ( Amer) > 60 Est GFR (Non-Af Amer) > 60 Glucose 84 Calcium 9.7 Magnesium 1.7 Total Bilirubin 0.8 AST 93 H ALT 149 H Alkaline Phosphatase 175 H Total Protein 6.5 Albumin 3.4 L 07/18/18 02:44 Blood Blood Culture - Final NO GROWTH IN 5 DAYS 07/09/18 07/09/18 07/10/18 22:55 22:55 05:04 Creatine Kinase 40 L 41 L CK-MB (CK-2) 0.52 Troponin I < 0.012 NT-Pro-B Natriuret Pep 07/10/18 07/10/18 07/10/18 05:04 11:08 11:08 Creatine Kinase 39 L CK-MB (CK-2) 0.52 0.39 Troponin I 0.015 < 0.012 NT-Pro-B Natriuret Pep 07/11/18 04:01 Creatine Kinase CK-MB (CK-2) Troponin I NT-Pro-B Natriuret Pep 621 Impressions: Head CT 07/09/18 23:33 IMPRESSION: Limited due to motion however no evidence for acute intracranial abnormality. Pansinusitis. TECHNICAL DOCUMENTATION: Quality ID # [id number]: Final reports with documentation of one or more dose reduction techniques (e.g., Automated exposure control, adjustment of the mA and/or kV according to patient size, use of iterative reconstruction technique) copyright 2011 [employer]- All Rights Reserved Thyroid Ultrasound 07/15/18 08:33 IMPRESSION: LIMITED STUDY. ECHOGENIC SOFT TISSUE, INDETERMINATE, WITH NO EVIDENCE OF ABSCESS OR FLUID COLLECTION. THE PATIENT IS SCHEDULED FOR CT SCAN OF THE SOFT TISSUES OF THE NECK. Soft Tissue Neck CT 07/15/18 11:01 IMPRESSION: 1. NO SIGNIFICANT FINDING IN THE SOFT TISSUES OF THE NECK. NO EVIDENCE OF SOFT TISSUE MASS, ABSCESS, OR ADENOPATHY. 2. BILATERAL PLEURAL EFFUSIONS WITH EXTENSIVE CONSOLIDATION IN THE LEFT UPPER LOBE. 3. FLUID THROUGHOUT THE PARANASAL SINUSES. THIS MAY BE EXACERBATED BY PRESENCE OF THE NASOGASTRIC TUBE. Abdomen Ultrasound 07/22/18 00:00 IMPRESSION: NORMAL RIGHT UPPER QUADRANT ULTRASOUND. Chest X-Ray 07/22/18 06:00 IMPRESSION: Continued partial clearing of the left lung infiltrate compared to previous studies Assessment and Plan - Diagnosis (1) Acute respiratory failure Qualifiers: Respiratory failure complication: hypoxia Qualified Code(s): J96.01 - Acute respiratory failure with hypoxia Is this a current diagnosis for this admission?: Yes Plan: Secondary to acute angioedema of the tongue with subsequent pneumonia. Resolved 07/22/2018-patient's pulse ox is 97% on room air. Acute respiratory failure secondary to angioedema of the tongue and subsequent pneumonia is resolved. She is presently on DuoNeb nebulizations every 6 as needed and Mucomyst 600 mg nebs twice a day. Plan is to continue the present management. Chest x-ray was done this morning I personally reviewed the chest x-ray from did not see any pleural effusions and there is m improvement in pneumonia compared to the previous x- rays. Plan is to change the IV Rocephin to IV Levaquin today. 07/23/2018-patient pulse ox is 95% on room air. Acute respiratory failure sec ondary to angioedema of the tongue and subsequent pneumonia is resolved. Patient is still on DuoNeb nebulizations every 6 hours and Mucomyst 600 mg nebs twice a day. Chest x-ray impression is partial clearing of the left lung infiltrate compared to previous studies. There is no mention of pleural effusions. plan is to discontinue Mucomyst. (2) Laceration of tongue Qualifiers: Encounter type: initial encounter Qualified Code(s): S01.512A - Laceration without foreign body of oral cavity, initial encounter Is this a current diagnosis for this admission?: Yes Plan: 07/20/18 19:55 Healed 07/23/2018 patient is admitted with a laceration of the tongue which was reso lved. (3) Collapse of left lung Is this a current diagnosis for this admission?: Yes Plan: 07/20/18 Collapsed left lower lobe secondary to pneumonia. Bronchoscopy performed. Cytology showed no malignancy just inflammatory change. Improved aeration. Continue to monitor with imaging. 07/21/18 Improved aeration of lung. Repeat chest x-ray tomorrow. 07/23/2018-latest x-ray shows clearing of the pneumonia and collapse of the lung secondary to pneumonia is resolved. Status post bronchoscopy during the hospital stay cytology ruled out malignancy. (4) Sepsis Is this a current diagnosis for this admission?: Yes Plan: 07/23/2018-patient was admitted with sepsis associated with acute respiratory failure pneumonia sepsis is resolved. (5) Hypokalemia Is this a current diagnosis for this admission?: Yes (6) Pneumonia Qualifiers: Pneumonia type: due to methicillin-sensitive Staphylococcus aureus (MSSA) Laterality: bilateral Lung location: lower lobe of lung Qualified Code(s): J15.211 - Pneumonia due to Methicillin susceptible Staphylococcus aureus Is this a current diagnosis for this admission?: Yes Plan: 07/20/18 Hospital acquired pneumonia. Bilateral. Possible component of aspiration as well as prolonged intubation. Staph aureus and Klebsiella pneumonia isolated. Continue antibiotic therapy as ordered. Collapsed lung and hypoxia secondary to pneumonia improving. July 21, 2018 The patient continues on ceftriaxone. His transaminases are elevated. I will recheck them again tomorrow. If the increase I will need to substitute a different medication for the ceftriaxone since there is a 3-5% chance for elevation of liver enzymes. 07/22/2018-chest x-ray was done today I did not see any pleural effusions for me it looks like pneumonia is improving. Patient is on IV ceftriaxone because of the elevated liver enzymes I am going to switch to IV Levaquin this which was confirmed with Rachel in the pharmacy. And is to repeat the chest x-ray tomorrow. Sputum culture from 07/16/2018 showing Staphylococcus aureus, Klebsiella pneumonia. Both organisms are sensitive to levofloxacin. 07/23/2018 repeat chest x-ray done yesterday shows partial clearing of the left- sided infiltrate. Patient is presently on levofloxacin 500 mg p.o. daily afebrile with normal WBC count. Pneumonia is most likely hospital-acquired sputum culture on 07/16 shows staph aureus, Klebsiella pneumonia causing 2 bacteria including gram positives. (7) Collapse of left lung Is this a current diagnosis for this admission?: Yes (8) Bilateral pleural effusion Is this a current diagnosis for this admission?: Yes Plan: 07/20/18 Likely parapneumonic effusions related to pneumonia. Improving with treatment for pneumonia. 07/21/2018 As noted above they seem to be improving. Repeat chest x-ray tomorrow. 07/22/2018-shows bilateral pleural effusions repeat chest x-ray was done today. Patient is not any respiratory distress. Presently on Mucomyst and albuterol nebulizations and IV levofloxacin plan is to continue the present management. 07/23/2018-chest x-ray done yesterday shows resolution of the bilateral pleural effusions. (9) Delirium due to another medical condition Is this a current diagnosis for this admission?: Yes Plan: The patient did exhibit delirium. It seems to be getting better each day. It is likely related to the combination of his pneumonia, acute critical illness with extended stay in the intensive care unit and possibly a reaction to an tibiotic therapy. Continue to monitor. 07/22/2018-patient is alert and awake communicating very well. Delirium due to medications improved. This is hospital-acquired condition. Most likely seconda ry to pneumonia and multiple comorbidities acute illness and extensive stay in the intensive care. 06/25/2018-patient is comfortably in the bed alert and awake oriented communicating very well. Delirium due to medications resolved. (10) Hypokalemia Is this a current diagnosis for this admission?: Yes Plan: 07/22/2018-patient's latest potassium level is 3.8 and he is presently on potassium 20 mg p.o. twice daily hypokalemia resolved plan is to check the labs on daily basis. 07/23/2018 latest potassium is 3.9 presently on potassium 20 mg p.o. twice a day hypokalemia is resolved. (11) Hypomagnesemia Is this a current diagnosis for this admission?: Yes Plan: Initiate magnesium oxide 400 mg daily and monitor magnesium level 07/22/2018-patient's magnesium level is 1.7 presently is receiving 400 mg of magnesium daily it was increased to 800 mg p.o. daily today. Plan to check the magnesium levels tomorrow. 07/23/2018 patient's latest magnesium is 1.7 he is on 800 mg of p.o. magnesium plan to increase it to twice a day. (12) Angioedema of intestine due to angiotensin converting enzyme inhibitor (KARLOS-I) Is this a current diagnosis for this admission?: Yes Plan: Resolved. Lisinopril is now listed as an allergy. He should avoid all KARLOS inhibitors and possibly angiotensin receptor blockers. 07/22/2018-angioedema of the intestines due to KARLOS inhibitor is resolved. Patient is advised to not to take KARLOS or ARB from now. 06/25/2018-angioedema of the intestines due to KARLOS inhibitor or is resolved. Patient was strongly advised not to take KARLOS inhibitors and ARB's. (13) Hypertension Qualifiers: Hypertension type: essential hypertension Qualified Code(s): I10 - Essential (primary) hypertension Is this a current diagnosis for this admission?: No Plan: 07/22/2018 patient has history of hypertension blood pressure today is 138/81. Patient is presently on nadolol 80 mg p.o. daily plan is to continue the present management. 07/23/2018-patient history of hypertension his latest blood pressure is 111/73. Well controlled. Presently on nadolol 80 mg p.o. daily plan is to continue the present management. (14) Transaminitis Is this a current diagnosis for this admission?: Yes Plan: 07/22/2018 elevated liver enzymes after the admission. May be secondary to IV Rocephin. Antibiotics is switched to IV Levaquin 500 mg daily. plan is to recheck the LFTs tomorrow. Liver ultrasound was requested. 07/23/2018-patient came in with elevated liver enzymes this is happened during the hospital stay .ultrasound of the liver done yesterday which was normal .antibiotics were changed from IV Rocephin to levofloxacin , LFTs are coming down. Plan is to check the LFTs again tomorrow. (15) Physical debility Is this a current diagnosis for this admission?: Yes Plan: 07/23/2018-physically patient is extremely weak yesterday and standing his knees [place] almost fell onto the floor nurses helped him to get into the bed. Physical therapy is working with the patient. I think actually the recommendation is for the patient to go to [facility]. But the patient and family decided to take the patient home once he is stable with home health. pt has a walker at home. - Time Time Spent with patient: 25-34 minutes Medications reviewed and adjusted accordingly: Yes Anticipated discharge: Home with Homehealth
[2018-07-23] MEDS: LEVOFLOXACIN 500 MG/D5W RTU 500 MG/100 ML RTUPB IV SCH (10:08)
[2018-07-23] MEDS: MAGNESIUM OXIDE 400 MG TABLET PO SCH ×2 (10:12→17:17)
[2018-07-23] MEDS: POTASSIUM CHLORIDE 10 MEQ CAPSULE.ER PO SCH ×2 (10:12→17:16)
[2018-07-23] MEDS: NADOLOL 40 MG TABLET PO SCH (10:12)
[2018-07-23] MEDS: FUROSEMIDE 20 MG TABLET PO SCH ×2 (10:13→17:16)
[2018-07-23] MEDS: FAMOTIDINE 20 MG TABLET PO SCH ×2 (10:13→21:48)
[2018-07-23] MEDS: ALLOPURINOL 300 MG TABLET PO SCH (10:13)
[2018-07-23] MEDS: ATORVASTATIN CALCIUM 20 MG TABLET PO SCH (21:49)
[2018-07-24] MEDS: ZOLPIDEM TARTRATE 5 MG TABLET PO PRN (00:10)
[2018-07-24 06:35] LABS: ABSOLUTE BASOPHILS # (AUTO) 0.1 10^3/uL (0.0-0.2); ABSOLUTE EOSINOPHILS # (AUTO) 0.2 10^3/uL (0.0-0.6); ABSOLUTE LYMPHOCYTES (AUTO) 1.3 10^3/uL (0.5-4.7); ABSOLUTE MONOCYTES (AUTO) 1.1 10^3/uL (0.1-1.4); ABSOLUTE NEUT (AUTO) 9.1 10^3/uL (1.7-8.2); EOSINOPHILS % (AUTO) 1.8 % (0-6); HEMATOCRIT 33.1 % (37.9-51.0); HEMOGLOBIN 11.3 g/dL (13.5-17.0); LYMPHOCYTES % (AUTO) 10.8 % (13-45); MEAN CORPUSCULAR HEMOGLOBIN 34.5 pg (27.0-33.4); MEAN CORPUSCULAR HGB CONC 34.2 g/dL (32.0-36.0); MEAN CORPUSCULAR VOLUME 101 fl (80-97); MONOCYTES % (AUTO) 9.4 % (3-13); PLATELET COUNT 184 10^3/uL (150-450); RED BLOOD COUNT 3.28 10^6/uL (4.35-5.55); RED CELL DISTRIBUTION WIDTH 18.5 % (11.5-14.0); TOTAL CELLS COUNTED % (AUTO) 100 %; WHITE BLOOD COUNT 11.8 10^3/uL (4.0-10.5)
[2018-07-24 06:47] LABS: ALANINE AMINOTRANSFERASE 122 U/L (21-72); ALBUMIN 3.6 g/dL (3.5-5.0); ALKALINE PHOSPHATASE 163 U/L (38-126); ANION GAP 12 (5-19); ASPARTATE AMINO TRANSFERASE 72 U/L (17-59); BILIRUBIN,DIRECT 0.3 mg/dL (0.0-0.4); BILIRUBIN,TOTAL 0.8 mg/dL (0.2-1.3); BLOOD UREA NITROGEN 21 mg/dL (7-20); CALCIUM 9.9 mg/dL (8.4-10.2); CARBON DIOXIDE 25 mmol/L (22-30); CHLORIDE 101 mmol/L (98-107); GLUCOSE 96 mg/dL (75-110); SODIUM 137.9 mmol/L (137-145); TOTAL PROTEIN 6.9 g/dL (6.3-8.2)
--- NOTE | 2018-07-24 08:38 | PDOC PROGRESS REPORT ---
Subjective Progress Note for:: 07/24/18 Subjective:: Patient still intubated chest x-ray done this morning shows complete wiping out of the left side of the chest most likely secondary to mucous plug. I discussed with Dr. Colunga is going to do the bronchoscopy this morning. We are going to do the follow-up chest x-ray after that. And temperature is 102.6. To start him on IV antibiotic therapy septic work is going to be ordered. 07/22/2018-patient was transferred from ICU to [facility] yesterday. No acute events in the last 24 hours. Patient is afebrile. T-max is 98.2. Blood pressure is 138/81. Comfortably in the bed communicating very well. Denies any problems. Main concern is elevated LFTs are was placed for liver ultrasound today. Plan is to discontinue IV Rocephin and IV levofloxacin 500 mg daily. medication change confirmed with Rachel in the pharmacy. 07/23/2018 no acute events in the last 24 hours. Patient is afebrile. T-max is 97.3. Ultrasound of the liver was done yesterday for elevated liver enzymes report came back normal. Antibiotics switched from IV Rocephin to p.o. levofloxacin LFTs are coming down. It is comfortably in the bed denies any complaints. Nurse told me patient is extremely weak he cannot even stand on his home yesterday he is more almost fell onto the floor on standing physical therapy is working with the patient. exercise planner spoke to the patient and his mother they are requesting that patient to be discharged home when he is ready with home health. Patient is not ready to go home yet. 07/24/2018-no acute events in the last 24 hours. Patient is afebrile. T-max is 98.5. Chest x-ray done 321 shows improvement of the left lower lobe infiltrate. His LFTs have continued to improve. pt is comfortable in the bed expressing desire to go home. In my opinion pt is unsafe to go home. Spoke to patient's mom Karina and expressed her my concerns she agreed with me that she may not able to take him at home and rehab facility is the best option but she expressed her concern that patient has [employer] insurance may not cover the rehab placement. I told her social work lecturer is going to work with the insurance company to see if he is qualified are not. Reason For Visit: ACUTE ANGIOEDEMA WITH AIRWAY OBSTRUCTION Physical Exam Vital Signs: Temp Pulse Resp BP Pulse Ox 98.5 F 80 22 H 109/71 93 07/24/18 04:11 07/24/18 04:11 07/24/18 04:11 07/24/18 04:11 07/24/18 04:11 Intake & Output 07/23/18 07/24/18 07/25/18 06:59 06:59 06:59 Intake Total 1673 986 Output Total 1275 750 Balance 398 236 Weight 81.3 kg 77.9 kg General appearance: PRESENT: no acute distress Head exam: PRESENT: atraumatic Eye exam: PRESENT: PERRLA Neck exam: ABSENT: carotid bruit, JVD, lymphadenopathy, thyromegaly Respiratory exam: PRESENT: clear to auscultation jhonathan. ABSENT: rales, rhonchi, wheezes Cardiovascular exam: PRESENT: RRR. ABSENT: diastolic murmur, rubs, systolic murmur GI/Abdominal exam: PRESENT: normal bowel sounds, soft. ABSENT: distended, guarding, mass, organolmegaly, rebound, tenderness Extremities exam: PRESENT: full ROM. ABSENT: calf tenderness, clubbing, pedal edema Neurological exam: PRESENT: alert, awake, oriented to person, oriented to place, oriented to time, oriented to situation, CN II-XII grossly intact. ABSENT: motor sensory deficit Psychiatric exam: PRESENT: other - Occasional confusion Skin exam: PRESENT: dry, intact, warm. ABSENT: cyanosis, rash Results Laboratory Results: 07/24/18 06:08 07/24/18 06:08 07/24/18 07/24/18 06:08 06:08 WBC 11.8 H RBC 3.28 L Hgb 11.3 L Hct 33.1 L MCV 101 H MCH 34.5 H MCHC 34.2 RDW 18.5 H Plt Count 184 Seg Neutrophils % 77.0 Lymphocytes % 10.8 L Monocytes % 9.4 Eosinophils % 1.8 Basophils % 1.0 Absolute Neutrophils 9.1 H Absolute Lymphocytes 1.3 Absolute Monocytes 1.1 Absolute Eosinophils 0.2 Absolute Basophils 0.1 Sodium 137.9 Potassium 4.0 Chloride 101 Carbon Dioxide 25 Anion Gap 12 BUN 21 H Creatinine 0.86 Est GFR ( Amer) > 60 Est GFR (Non-Af Amer) > 60 Glucose 96 Calcium 9.9 Magnesium 1.8 Total Bilirubin 0.8 AST 72 H ALT 122 H Alkaline Phosphatase 163 H Total Protein 6.9 Albumin 3.6 07/09/18 07/09/18 07/10/18 22:55 22:55 05:04 Creatine Kinase 40 L 41 L CK-MB (CK-2) 0.52 Troponin I < 0.012 NT-Pro-B Natriuret Pep 07/10/18 07/10/18 07/10/18 05:04 11:08 11:08 Creatine Kinase 39 L CK-MB (CK-2) 0.52 0.39 Troponin I 0.015 < 0.012 NT-Pro-B Natriuret Pep 07/11/18 04:01 Creatine Kinase CK-MB (CK-2) Troponin I NT-Pro-B Natriuret Pep 621 Impressions: Head CT 07/09/18 23:33 IMPRESSION: Limited due to motion however no evidence for acute intracranial abnormality. Pansinusitis. TECHNICAL DOCUMENTATION: Quality ID # [id number]: Final reports with documentation of one or more dose reduction techniques (e.g., Automated exposure control, adjustment of the mA and/or kV according to patient size, use of iterative reconstruction technique) copyright 2011 [employer]- All Rights Reserved Thyroid Ultrasound 07/15/18 08:33 IMPRESSION: LIMITED STUDY. ECHOGENIC SOFT TISSUE, INDETERMINATE, WITH NO EVIDENCE OF ABSCESS OR FLUID COLLECTION. THE PATIENT IS SCHEDULED FOR CT SCAN OF THE SOFT TISSUES OF THE NECK. Soft Tissue Neck CT 07/15/18 11:01 IMPRESSION: 1. NO SIGNIFICANT FINDING IN THE SOFT TISSUES OF THE NECK. NO EVIDENCE OF SOFT TISSUE MASS, ABSCESS, OR ADENOPATHY. 2. BILATERAL PLEURAL EFFUSIONS WITH EXTENSIVE CONSOLIDATION IN THE LEFT UPPER LO BE. 3. FLUID THROUGHOUT THE PARANASAL SINUSES. THIS MAY BE EXACERBATED BY PRESENCE OF THE NASOGASTRIC TUBE. Abdomen Ultrasound 07/22/18 00:00 IMPRESSION: NORMAL RIGHT UPPER QUADRANT ULTRASOUND. Chest X-Ray 07/22/18 06:00 IMPRESSION: Continued partial clearing of the left lung infiltrate compared to previous studies Assessment and Plan - Diagnosis (1) Acute respiratory failure Qualifiers: Respiratory failure complication: hypoxia Qualified Code(s): J96.01 - Acute respiratory failure with hypoxia Is this a current diagnosis for this admission?: Yes Plan: Secondary to acute angioedema of the tongue with subsequent pneumonia. Resolved 07/22/2018-patient's pulse ox is 97% on room air. Acute respiratory failure secondary to angioedema of the tongue and subsequent pneumonia is resolved. She is presently on DuoNeb nebulizations every 6 as needed and Mucomyst 600 mg nebs twice a day. Plan is to continue the present management. Chest x-ray was done this morning I personally reviewed the chest x-ray from did not see any pleural effusions and there is m improvement in pneumonia compared to the previous x- rays. Plan is to change the IV Rocephin to IV Levaquin today. 07/23/2018-patient pulse ox is 95% on room air. Acute respiratory failure secondary to angioedema of the tongue and subsequent pneumonia is resolved. Patient is still on DuoNeb nebulizations every 6 hours and Mucomyst 600 mg nebs twice a day. Chest x-ray impression is partial clearing of the left lung infiltrate compared to previous studies. There is no mention of pleural effusions. plan is to discontinue Mucomyst. 07/24/2018-patient pulse ox today is 93% on room air. Acute respiratory failure secondary to angioedema of the tongue and subsequent pneumonia is resolved. Patient is on DuoNeb nebulizations every 6. Mucomyst is discontinued. Chest x- ray done on 07/22/2018 indicates clearing of the left lower lobe infiltrated. Patient is afebrile. Patient is presently on levofloxacin 500 mg p.o. daily. (2) Laceration of tongue Qualifiers: Encounter type: initial encounter Qualified Code(s): S01.512A - Laceration without foreign body of oral cavity, initial encounter Is this a current diagnosis for this admission?: Yes Plan: 07/20/18 19:55 Healed 07/23/2018 patient is admitted with a laceration of the tongue which was resolved. 07/23/2018-laceration of the tongue is healed. (3) Collapse of left lung Is this a current diagnosis for this admission?: Yes Plan: 07/20/18 Collapsed left lower lobe secondary to pneumonia. Bronchoscopy performed. Cytology showed no malignancy just inflammatory change. Improved aeration. Continue to monitor with imaging. 07/21/18 Improved aeration of lung. Repeat chest x-ray tomorrow. 07/23/2018-latest x-ray shows clearing of the pneumonia and collapse of the lung secondary to pneumonia is resolved. Status post bronchoscopy during the hospital stay cytology ruled out malignancy. 07/24/2018-patient has a collapsed lung left lung when he was in the intensive care status post bronchoscopy was done found to have inflammatory changes follow-up the chest x-ray suggest resolution of the pneumonia and decreasing pleural effusions. Patient is presently on levofloxacin 500 mg p.o. daily. Pulse ox is 93% on room air. (4) Sepsis Is this a current diagnosis for this admission?: Yes Plan: 07/23/2018-patient was admitted with sepsis associated with acute respiratory failure pneumonia sepsis is resolved. 07/24/2018-sepsis is resolved. (5) Hypokalemia Is this a current diagnosis for this admission?: Yes Plan: Serum potassium today is just in the normal range. I have increased the potassi um chloride to 20 mEq twice a day. Continue to follow serum potassium levels. 07/24/2018-patient's potassium level is 4.0 he is getting potassium supplementations hypokalemia is resolved. (6) Pneumonia Qualifiers: Pneumonia type: due to methicillin-sensitive Staphylococcus aureus (MSSA) Laterality: bilateral Lung location: lower lobe of lung Qualified Code(s): J15.211 - Pneumonia due to Methicillin susceptible Staphylococcus aureus Is this a current diagnosis for this admission?: Yes Plan: 07/20/18 Hospital acquired pneumonia. Bilateral. Possible component of aspiration as well as prolonged intubation. Staph aureus and Klebsiella pneumonia isolated. Continue antibiotic therapy as ordered. Collapsed lung and hypoxia secondary to pneumonia improving. July 21, 2018 The patient continues on ceftriaxone. His transaminases are elevated. I will recheck them again tomorrow. If the increase I will need to substitute a different medication for the ceftriaxone since there is a 3-5% chance for elevation of liver enzymes. 07/22/2018-chest x-ray was done today I did not see any pleural effusions for me it looks like pneumonia is improving. Patient is on IV ceftriaxone because of the elevated liver enzymes I am going to switch to IV Levaquin this which was confirmed with Rachel in the pharmacy. And is to repeat the chest x-ray tomorrow. Sputum culture from 07/16/2018 showing Staphylococcus aureus, Klebsiella pneumonia. Both organisms are sensitive to levofloxacin. 07/23/2018 repeat chest x-ray done yesterday shows partial clearing of the left- sided infiltrate. Patient is presently on levofloxacin 500 mg p.o. daily afebrile with normal WBC count. Pneumonia is most likely hospital-acquired sputum culture on 07/16 shows staph aureus, Klebsiella pneumonia causing 2 bacteria including gram positives. 07/24/2018 chest x-ray done on 07/22/2018 shows clearing of the left sided infiltrate presently on levofloxacin 500 mg p.o. daily WBC count is 11,800 close to normal patient is afebrile for the last several days. He has hospital acquired pneumonia and sputum culture on 315 showing staph aureus and Klebsiella pneumonia both are sensitive to to levofloxacin. (7) Collapse of left lung Is this a current diagnosis for this admission?: Yes (8) Bilateral pleural effusion Is this a current diagnosis for this admission?: Yes Plan: 07/20/18 Likely parapneumonic effusions related to pneumonia. Improving with treatment for pneumonia. 07/21/2018 As noted above they seem to be improving. Repeat chest x-ray tomorrow. 07/22/2018-shows bilateral pleural effusions repeat chest x-ray was done today. Patient is not any respiratory distress. Presently on Mucomyst and albuterol nebulizations and IV levofloxacin plan is to continue the present management. 07/23/2018-chest x-ray done yesterday shows resolution of the bilateral pleural effusions. 07/24/2018-chest x-ray done on 07/22/2018 shows resolution of the bilateral pleural effusions. (9) Delirium due to another medical condition Is this a current diagnosis for this admission?: Yes Plan: The patient did exhibit delirium. It seems to be getting better each day. It is likely related to the combination of his pneumonia, acute critical illness with extended stay in the intensive care unit and possibly a reaction to antibiotic therapy. Continue to monitor. 07/22/2018-patient is alert and awake communicating very well. Delirium due to medications improved. This is hospital-acquired condition. Most likely secondary to pneumonia and multiple comorbidities acute illness and extensive stay in the intensive care. 06/25/2018-patient is comfortably in the bed alert and awake oriented communicating very well. Delirium due to medications resolved. 07/24/2018 patient is comfortably in the bed alert and awake expressing desire to go home. Delirium due to combination of pneumonia acute respiratory failure with intubation, sepsis resolved. (10) Hypokalemia Is this a current diagnosis for this admission?: Yes (11) Hypomagnesemia Is this a current diagnosis for this admission?: Yes Plan: Initiate magnesium oxide 400 mg daily and monitor magnesium level 07/22/2018-patient's magnesium level is 1.7 presently is receiving 400 mg of magnesium daily it was increased to 800 mg p.o. daily today. Plan to check the magnesium levels tomorrow. 07/23/2018 patient's latest magnesium is 1.7 he is on 800 mg of p.o. magnesium plan to increase it to twice a day. 07/24/2018-technetium level is 1.8 and patient is receiving magnesium 800 mg p.o. twice a day hypomagnesemia is resolved. Plan is to continue the present management. (12) Angioedema of intestine due to angiotensin converting enzyme inhibitor (KARLOS-I) Is this a current diagnosis for this admission?: Yes Plan: Resolved. Lisinopril is now listed as an allergy. He should avoid all KARLOS inhibitors and possibly angiotensin receptor blockers. 07/22/2018-angioedema of the intestines due to KARLOS inhibitor is resolved. Patient is advised to not to take KARLOS or ARB from now. 07/23/2018-angioedema of the intestines due to KARLOS inhibitor or is resolved. Patient was strongly advised not to take KARLOS inhibitors and ARB's. 07/24/2018 angioedema of the intestines due to KARLOS inhibitor resolved. Patient was strongly advised to not to take KARLOS inhibitors or ARB use. (13) Hypertension Qualifiers: Hypertension type: essential hypertension Qualified Code(s): I10 - Essential (primary) hypertension Is this a current diagnosis for this admission?: No Plan: 07/22/2018 patient has history of hypertension blood pressure today is 138/81. Patient is presently on nadolol 80 mg p.o. daily plan is to continue the present management. 07/23/2018-patient history of hypertension his latest blood pressure is 111/73. Well controlled. Presently on nadolol 80 mg p.o. daily plan is to continue the present management. 07/24/2018-patient blood pressure today is 109/71 well-controlled presently on nadolol 80 mg p.o. daily plan is to continue the present management. (14) Transaminitis Is this a current diagnosis for this admission?: Yes Plan: 07/22/2018 elevated liver enzymes after the admission. May be secondary to IV Rocephin. Antibiotics is switched to IV Levaquin 500 mg daily. plan is to recheck the LFTs tomorrow. Liver ultrasound was requested. 07/23/2018-patient came in with elevated liver enzymes this is happened during the hospital stay .ultrasound of the liver done yesterday which was normal .antibiotics were changed from IV Rocephin to levofloxacin , LFTs are coming down. Plan is to check the LFTs again tomorrow. 07/24/2018 patient developed transaminitis during the hospital stay IV Rocephin was switched to p.o. levofloxacin LFTs are coming down. Plan is to recheck the labs again tomorrow. (15) Physical debility Is this a current diagnosis for this admission?: Yes Plan: 07/23/2018-physically patient is extremely weak yesterday and standing his knees gaveway almost fell onto the floor nurses helped him to get into the bed. Physical therapy is working with the patient. I think actually the recommendation is for the patient to go to [facility]. But the patient and family decided to take the patient home once he is stable with home health. pt has a walker at home. 07/24/2018 patient is extremely weak to even come out of the bed safely fall precautions will be placed. I spoke to Keisha program planner and also patient's mother Karina and I expressed my concerns and my recommendation is that patient need to go to a short-term rehab. - Time Time Spent with patient: 15-24 minutes Medications reviewed and adjusted accordingly: Yes Anticipated discharge: SNF
[2018-07-24] MEDS: ALLOPURINOL 300 MG TABLET PO SCH (10:25)
[2018-07-24] MEDS: NADOLOL 40 MG TABLET PO SCH (10:25)
[2018-07-24] MEDS: FUROSEMIDE 20 MG TABLET PO SCH ×2 (10:25→18:49)
[2018-07-24] MEDS: MAGNESIUM OXIDE 400 MG TABLET PO SCH ×2 (10:25→18:50)
[2018-07-24] MEDS: POTASSIUM CHLORIDE 10 MEQ CAPSULE.ER PO SCH ×2 (10:25→18:50)
[2018-07-24] MEDS: FAMOTIDINE 20 MG TABLET PO SCH ×2 (10:26→22:54)
[2018-07-24] MEDS: LEVOFLOXACIN 500 MG/D5W RTU 500 MG/100 ML RTUPB IV SCH (10:26)
[2018-07-24] MEDS: ATORVASTATIN CALCIUM 20 MG TABLET PO SCH (22:54)
[2018-07-25 06:17] LABS: ABSOLUTE BASOPHILS # (AUTO) 0.1 10^3/uL (0.0-0.2); ABSOLUTE EOSINOPHILS # (AUTO) 0.2 10^3/uL (0.0-0.6); ABSOLUTE LYMPHOCYTES (AUTO) 1.3 10^3/uL (0.5-4.7); ABSOLUTE MONOCYTES (AUTO) 1.4 10^3/uL (0.1-1.4); ABSOLUTE NEUT (AUTO) 9.9 10^3/uL (1.7-8.2); BASOPHILS % (AUTO) 0.9 % (0-2); EOSINOPHILS % (AUTO) 1.8 % (0-6); HEMATOCRIT 32.9 % (37.9-51.0); HEMOGLOBIN 11.2 g/dL (13.5-17.0); LYMPHOCYTES % (AUTO) 10.1 % (13-45); MEAN CORPUSCULAR HEMOGLOBIN 34.1 pg (27.0-33.4); MEAN CORPUSCULAR HGB CONC 33.9 g/dL (32.0-36.0); MEAN CORPUSCULAR VOLUME 100 fl (80-97); MONOCYTES % (AUTO) 10.6 % (3-13); PLATELET COUNT 212 10^3/uL (150-450); RED BLOOD COUNT 3.28 10^6/uL (4.35-5.55); RED CELL DISTRIBUTION WIDTH 18.6 % (11.5-14.0); SEGMENTED NEUTROPHILS % (AUTO) 76.6 % (42-78); TOTAL CELLS COUNTED % (AUTO) 100 %
[2018-07-25 06:42] LABS: ALANINE AMINOTRANSFERASE 115 U/L (21-72); ALBUMIN 3.6 g/dL (3.5-5.0); ALKALINE PHOSPHATASE 147 U/L (38-126); ANION GAP 14 (5-19); ASPARTATE AMINO TRANSFERASE 76 U/L (17-59); BILIRUBIN,DIRECT 0.4 mg/dL (0.0-0.4); BILIRUBIN,TOTAL 0.7 mg/dL (0.2-1.3); BLOOD UREA NITROGEN 25 mg/dL (7-20); CALCIUM 10.1 mg/dL (8.4-10.2); CARBON DIOXIDE 25 mmol/L (22-30); CHLORIDE 99 mmol/L (98-107); GLUCOSE 86 mg/dL (75-110); SODIUM 137.8 mmol/L (137-145); TOTAL PROTEIN 6.8 g/dL (6.3-8.2)
--- NOTE | 2018-07-25 08:46 | PDOC PROGRESS REPORT ---
Subjective Progress Note for:: 07/25/18 Subjective:: Patient still intubated chest x-ray done this morning shows complete wiping out of the left side of the chest most likely secondary to mucous plug. I discussed with Dr. Colunga is going to do the bronchoscopy this morning. We are going to do the follow-up chest x-ray after that. And temperature is 102.6. To start him on IV antibiotic therapy septic work is going to be ordered. 07/22/2018-patient was transferred from ICU to [facility] yesterday. No acute events in the last 24 hours. Patient is afebrile. T-max is 98.2. Blood pressure is 138/81. Comfortably in the bed communicating very well. Denies any problems. Main concern is elevated LFTs are was placed for liver ultrasound today. Plan is to discontinue IV Rocephin and IV levofloxacin 500 mg daily. medication change confirmed with Rachel in the pharmacy. 07/23/2018 no acute events in the last 24 hours. Patient is afebrile. T-max is 97.3. Ultrasound of the liver was done yesterday for elevated liver enzymes report came back normal. Antibiotics switched from IV Rocephin to p.o. levofloxacin LFTs are coming down. It is comfortably in the bed denies any complaints. Nurse told me patient is extremely weak he cannot even stand on his home yesterday he is more almost fell onto the floor on standing physical therapy is working with the patient. technical planner spoke to the patient and his mother they are requesting that patient to be discharged home when he is ready with home health. Patient is not ready to go home yet. 07/24/2018-no acute events in the last 24 hours. Patient is afebrile. T-max is 98.5. Chest x-ray done 321 shows improvement of the left lower lobe infiltrate. His LFTs have continued to improve. pt is comfortable in the bed expressing desire to go home. In my opinion pt is unsafe to go home. Spoke to patient's mom Karina and expressed her my concerns she agreed with me that she may not able to take him at home and rehab facility is the best option but she expressed her concern that patient has [employer] insurance may not cover the rehab placement. I told her nephrology social worker is going to work with the insurance company to see if he is qualified are not. 07/25/2018-patient is comfortable in the bed denies any complaints according to him he was referred to [facility] [place] by Dr. Sneed for anemia Dr. Denton took care of him there and confirm that he has anemia he wants to be consulted with Dr. Denton during this hospital stay. And nurses are telling me that patient is calling ditching machine operator calling other family members saying complaining he was held in this hospital against his as will, I explained to him that I spoke to his mother Karina yesterday and spoke to the patient myself yesterday that he is unsafe for him to go home because of the physical debility and high risk of falls at home my recommendation is to go for a short-term rehab for couple of weeks patient said he understood my concerns he is willing to stay her e continue to participate in physical therapy. Patient is afebrile. Reason For Visit: ACUTE ANGIOEDEMA WITH AIRWAY OBSTRUCTION Physical Exam Vital Signs: Temp Pulse Resp BP Pulse Ox 97.9 F 85 24 H 120/72 96 07/25/18 03:57 07/25/18 03:57 07/25/18 03:57 07/25/18 03:57 07/25/18 03:57 Intake & Output 07/24/18 07/25/18 07/26/18 06:59 06:59 06:59 Intake Total 986 1223 Output Total 750 450 Balance 236 773 Weight 77.9 kg 79.2 kg General appearance: PRESENT: no acute distress Head exam: PRESENT: atraumatic Eye exam: PRESENT: PERRLA Mouth exam: PRESENT: dry mucosa Neck exam: ABSENT: carotid bruit, JVD, lymphadenopathy, thyromegaly Respiratory exam: PRESENT: decreased breath sounds Cardiovascular exam: PRESENT: RRR. ABSENT: diastolic murmur, rubs, systolic murmur GI/Abdominal exam: PRESENT: normal bowel sounds, soft. ABSENT: distended, guarding, mass, organolmegaly, rebound, tenderness Extremities exam: PRESENT: full ROM. ABSENT: calf tenderness, clubbing, pedal edema Neurological exam: PRESENT: alert, awake, oriented to person, oriented to place, oriented to time, oriented to situation, CN II-XII grossly intact. ABSENT: motor sensory deficit Psychiatric exam: PRESENT: appropriate affect, normal mood. ABSENT: homicidal ideation, suicidal ideation Results Laboratory Results: 07/25/18 05:25 07/25/18 05:25 07/25/18 07/25/18 05:25 05:25 WBC 13.0 H RBC 3.28 L Hgb 11.2 L Hct 32.9 L MCV 100 H MCH 34.1 H MCHC 33.9 RDW 18.6 H Plt Count 212 Seg Neutrophils % 76.6 Lymphocytes % 10.1 L Monocytes % 10.6 Eosinophils % 1.8 Basophils % 0.9 Absolute Neutrophils 9.9 H Absolute Lymphocytes 1.3 Absolute Monocytes 1.4 Absolute Eosinophils 0.2 Absolute Basophils 0.1 Sodium 137.8 Potassium 4.0 Chloride 99 Carbon Dioxide 25 Anion Gap 14 BUN 25 H Creatinine 0.93 Est GFR ( Amer) > 60 Est GFR (Non-Af Amer) > 60 Glucose 86 Calcium 10.1 Magnesium 1.8 Total Bilirubin 0.7 AST 76 H ALT 115 H Alkaline Phosphatase 147 H Total Protein 6.8 Albumin 3.6 07/09/18 07/09/18 07/10/18 22:55 22:55 05:04 Creatine Kinase 40 L 41 L CK-MB (CK-2) 0.52 Troponin I < 0.012 NT-Pro-B Natriuret Pep 07/10/18 07/10/18 07/10/18 05:04 11:08 11:08 Creatine Kinase 39 L CK-MB (CK-2) 0.52 0.39 Troponin I 0.015 < 0.012 NT-Pro-B Natriuret Pep 07/11/18 04:01 Creatine Kinase CK-MB (CK-2) Troponin I NT-Pro-B Natriuret Pep 621 Impressions: Head CT 07/09/18 23:33 IMPRESSION: Limited due to motion however no evidence for acute intracranial abnormality. Pansinusitis. TECHNICAL DOCUMENTATION: Quality ID # [id number]: Final reports with documentation of one or more dose reduction techniques (e.g., Automated exposure control, adjustment of the mA and/or kV according to patient size, use of iterative reconstruction technique) copyright 2011 [employer]- All Rights Reserved Thyroid Ultrasound 07/15/18 08:33 IMPRESSION: LIMITED STUDY. ECHOGENIC SOFT TISSUE, INDETERMINATE, WITH NO EVIDENCE OF ABSCESS OR FLUID COLLECTION. THE PATIENT IS SCHEDULED FOR CT SCAN OF THE SOFT TISSUES OF THE NECK. Soft Tissue Neck CT 07/15/18 11:01 IMPRESSION: 1. NO SIGNIFICANT FINDING IN THE SOFT TISSUES OF THE NECK. NO EVIDENCE OF SOFT TISSUE MASS, ABSCESS, OR ADENOPATHY. 2. BILATERAL PLEURAL EFFUSIONS WITH EXTENSIVE CONSOLIDATION IN THE LEFT UPPER LOBE. 3. FLUID THROUGHOUT THE PARANASAL SINUSES. THIS MAY BE EXACERBATED BY PRESENCE OF THE NASOGASTRIC TUBE. Abdomen Ultrasound 07/22/18 00:00 IMPRESSION: NORMAL RIGHT UPPER QUADRANT ULTRASOUND. Chest X-Ray 07/22/18 06:00 IMPRESSION: Continued partial clearing of the left lung infiltrate compared to previous studies Assessment and Plan - Diagnosis (1) Acute respiratory failure Qualifiers: Respiratory failure complication: hypoxia Qualified Code(s): J96.01 - Acute respiratory failure with hypoxia Is this a current diagnosis for this admission?: Yes Plan: Secondary to acute angioedema of the tongue with subsequent pneumonia. Resolved 07/22/2018-patient's pulse ox is 97% on room air. Acute respiratory failure secondary to angioedema of the tongue and subsequent pneumonia is resolved. She is presently on DuoNeb nebulizations every 6 as needed and Mucomyst 600 mg nebs twice a day. Plan is to continue the present management. Chest x-ray was done this morning I personally reviewed the chest x-ray from did not see any pleural effusions and there is m improvement in pneumonia compared to the previous x- rays. Plan is to change the IV Rocephin to IV Levaquin today. 07/23/2018-patient pulse ox is 95% on room air. Acute respiratory failure secondary to angioedema of the tongue and subsequent pneumonia is resolved. Patient is still on DuoNeb nebulizations every 6 hours and Mucomyst 600 mg nebs twice a day. Chest x-ray impression is partial clearing of the left lung infiltrate compared to previous studies. There is no mention of pleural effusions. plan is to discontinue Mucomyst. 07/24/2018-patient pulse ox today is 93% on room air. Acute respiratory failure secondary to angioedema of the tongue and subsequent pneumonia is resolved. Patient is on DuoNeb nebulizations every 6. Mucomyst is discontinued. Chest x- ray done on 07/22/2018 indicates clearing of the left lower lobe infiltrated. Patient is afebrile. Patient is presently on levofloxacin 500 mg p.o. daily. 07/25/2018-patient's pulse ox today is 96% respiratory failure secondary to angioedema of the tongue and subsequently pneumonia is resolved. The blood cultures are showing Pseudomonas hominis and patient is presently on levofloxaci n. Cultures came from 07/16/2018 and Gram stain showed staph aureus and Klebsiella pneumonia sensitivity to levofloxacin and also. Plan is to continue the present management. (2) Laceration of tongue Qualifiers: Encounter type: initial encounter Qualified Code(s): S01.512A - Laceration without foreign body of oral cavity, initial encounter Is this a current diagnosis for this admission?: Yes Plan: 07/20/18 19:55 Healed 07/23/2018 patient is admitted with a laceration of the tongue which was resolved. 07/24/2018-laceration of the tongue is healed. 07/25/2018 patient is admitted with a laceration of the tongue. Condition is resolved. (3) Collapse of left lung Is this a current diagnosis for this admission?: Yes Plan: 07/20/18 Collapsed left lower lobe secondary to pneumonia. Bronchoscopy performed. Cytology showed no malignancy just inflammatory change. Improved aeration. Continue to monitor with imaging. 07/21/18 Improved aeration of lung. Repeat chest x-ray tomorrow. 07/23/2018-latest x-ray shows clearing of the pneumonia and collapse of the lung secondary to pneumonia is resolved. Status post bronchoscopy during the hospital stay cytology ruled out malignancy. 07/24/2018-patient has a collapsed lung left lung when he was in the intensive care status post bronchoscopy was done found to have inflammatory changes follow-up the chest x-ray suggest resolution of the pneumonia and decreasing pleural effusions. Patient is presently on levofloxacin 500 mg p.o. daily. Pulse ox is 93% on room air. 07/25/2018-patient has collapsed left lung during this hospital stay status post bronchoscopy and the findings are suggestive of inflammatory causes rather than malignancy. Pulse ox is 96% on room air today. Patient is on presently on levofloxacillin for staph hominis on blood culture and Staphylococcus aureus and Klebsiella pneumonia and sputum culture. (4) Sepsis Is this a current diagnosis for this admission?: Yes Plan: 07/23/2018-patient was admitted with sepsis associated with acute respiratory fa ilure pneumonia sepsis is resolved. 07/24/2018-sepsis is resolved. 07/24/2018 patient's blood pressure today is 120/72 with a temperature of 97.9 pulse rate of 85 on sepsis is resolved. (5) Hypokalemia Is this a current diagnosis for this admission?: Yes Plan: Serum potassium today is just in the normal range. I have increased the potassium chloride to 20 mEq twice a day. Continue to follow serum potassium levels. 07/24/2018-patient's potassium level is 4.0 he is getting potassium supplementations hypokalemia is resolved. 07/25/2018-patient potassium level is 4.0 hypokalemia resolved he is getting potassium supplementations 20 mg twice a day plan is to continue the present management. (6) Pneumonia Qualifiers: Pneumonia type: due to methicillin-sensitive Staphylococcus aureus (MSSA) Laterality: bilateral Lung location: lower lobe of lung Qualified Code(s): J15.211 - Pneumonia due to Methicillin susceptible Staphylococcus aureus Is this a current diagnosis for this admission?: Yes Plan: 07/20/18 Hospital acquired pneumonia. Bilateral. Possible component of aspiration as well as prolonged intubation. Staph aureus and Klebsiella pneumonia isolated. Continue antibiotic therapy as ordered. Collapsed lung and hypoxia secondary to pneumonia improving. July 21, 2018 The patient continues on ceftriaxone. His transaminases are elevated. I will recheck them again tomorrow. If the increase I will need to substitute a different medication for the ceftriaxone since there is a 3-5% chance for elevation of liver enzymes. 07/22/2018-chest x-ray was done today I did not see any pleural effusions for me it looks like pneumonia is improving. Patient is on IV ceftriaxone because of the elevated liver enzymes I am going to switch to IV Levaquin this which was confirmed with Rachel in the pharmacy. And is to repeat the chest x-ray tomorrow. Sputum culture from 07/16/2018 showing Staphylococcus aureus, Klebsiella pneumonia. Both organisms are sensitive to levofloxacin. 07/23/2018 repeat chest x-ray done yesterday shows partial clearing of the left- sided infiltrate. Patient is presently on levofloxacin 500 mg p.o. daily afebri le with normal WBC count. Pneumonia is most likely hospital-acquired sputum culture on 07/16 shows staph aureus, Klebsiella pneumonia causing 2 bacteria including gram positives. 07/24/2018 chest x-ray done on 07/22/2018 shows clearing of the left sided infiltrate presently on levofloxacin 500 mg p.o. daily WBC count is 11,800 close to normal patient is afebrile for the last several days. He has hospital acquired pneumonia and sputum culture on 315 showing staph aureus and Klebsiella pneumonia both are sensitive to to levofloxacin. 07/25/2018-plan is to repeat the chest x-ray today. Sputum cultures from 07/16/2018 showed staph aureus Klebsiella pneumonia sensitivity to levofloxacin. Plan is to continue the levofloxacin hospital-acquired pneumonia due to both gram-positive and gram-negative organisms. (7) Collapse of left lung Is this a current diagnosis for this admission?: Yes (8) Bilateral pleural effusion Is this a current diagnosis for this admission?: Yes Plan: 07/20/18 Likely parapneumonic effusions related to pneumonia. Improving with treatment for pneumonia. 07/21/2018 As noted above they seem to be improving. Repeat chest x-ray tomorrow. 07/22/2018-shows bilateral pleural effusions repeat chest x-ray was done today. Patient is not any respiratory distress. Presently on Mucomyst and albuterol nebulizations and IV levofloxacin plan is to continue the present management. 07/23/2018-chest x-ray done yesterday shows resolution of the bilateral pleural effusions. 07/24/2018-chest x-ray done on 07/22/2018 shows resolution of the bilateral pleural effusions. 07/25/2018-chest x-ray from 07/22/2018 shows resolution of the bilateral pleural effusions. Most likely secondary to hospital-acquired pneumonia and acute respiratory failure secondary to angioedema of the tongue. Patient is on Lasix 20 mg p.o. twice daily. (9) Delirium due to another medical condition Is this a current diagnosis for this admission?: Yes Plan: The patient did exhibit delirium. It seems to be getting better each day. It is likely related to the combination of his pneumonia, acute critical illness with extended stay in the intensive care unit and possibly a reaction to antibiotic therapy. Continue to monitor. 07/22/2018-patient is alert and awake communicating very well. Delirium due to medications improved. This is hospital-acquired condition. Most likely secondary to pneumonia and multiple comorbidities acute illness and extensive stay in the intensive care. 06/25/2018-patient is comfortably in the bed alert and awake oriented communicating very well. Delirium due to medications resolved. 07/24/2018 patient is comfortably in the bed alert and awake expressing desire to go home. Delirium due to combination of pneumonia acute respiratory failure with intubation, sepsis resolved. 07/25/2018-patient is alert and awake oriented communicating well. Delirium secondary to medications/medical conditions resolved. (10) Hypokalemia Is this a current diagnosis for this admission?: Yes (11) Hypomagnesemia Is this a current diagnosis for this admission?: Yes Plan: Initiate magnesium oxide 400 mg daily and monitor magnesium level 07/22/2018-patient's magnesium level is 1.7 presently is receiving 400 mg of magnesium daily it was increased to 800 mg p.o. daily today. Plan to check the magnesium levels tomorrow. 07/23/2018 patient's latest magnesium is 1.7 he is on 800 mg of p.o. magnesium plan to increase it to twice a day. 07/24/2018-technetium level is 1.8 and patient is receiving magnesium 800 mg p.o. twice a day hypomagnesemia is resolved. Plan is to continue the present management. 07/25/2018 patient is on magnesium 800 mg p.o. twice a day magnesium level today is 1.8 hypomagnesemia is resolved. (12) Angioedema of intestine due to angiotensin converting enzyme inhibitor (KARLOS-I) Is this a current diagnosis for this admission?: Yes Plan: Resolved. Lisinopril is now listed as an allergy. He should avoid all KARLOS inhibitors and possibly angiotensin receptor blockers. 07/22/2018-angioedema of the intestines due to KARLOS inhibitor is resolved. Patient is advised to not to take KARLOS or ARB from now. 07/23/2018-angioedema of the intestines due to KARLOS inhibitor or is resolved. Patient was strongly advised not to take KARLOS inhibitors and ARB's. 07/24/2018 angioedema of the intestines due to KARLOS inhibitor resolved. Patient was strongly advised to not to take KARLOS inhibitors or ARB use. 07/25/2018-angioedema of the intestine due to KARLOS inhibitor loss is resolved patient was strongly advised not to take KARLOS or ARB's in the future. (13) Hypertension Qualifiers: Hypertension type: essential hypertension Qualified Code(s): I10 - Essential (primary) hypertension Is this a current diagnosis for this admission?: No Plan: 07/22/2018 patient has history of hypertension blood pressure today is 138/81. Patient is presently on nadolol 80 mg p.o. daily plan is to continue the present management. 07/23/2018-patient history of hypertension his latest blood pressure is 111/73. Well controlled. Presently on nadolol 80 mg p.o. daily plan is to continue the present management. 07/24/2018-patient blood pressure today is 109/71 well-controlled presently on nadolol 80 mg p.o. daily plan is to continue the present management. 07/25/2018-patient blood pressure today is 120/72 presently on nadolol 80 mg p.o. daily and Lasix 20 mg p.o. twice daily plan is to continue the present management. (14) Transaminitis Is this a current diagnosis for this admission?: Yes Plan: 07/22/2018 elevated liver enzymes after the admission. May be secondary to IV Rocephin. Antibiotics is switched to IV Levaquin 500 mg daily. plan is to recheck the LFTs tomorrow. Liver ultrasound was requested. 07/23/2018-patient came in with elevated liver enzymes this is happened during the hospital stay .ultrasound of the liver done yesterday which was normal .antibiotics were changed from IV Rocephin to levofloxacin , LFTs are coming down. Plan is to check the LFTs again tomorrow. 07/24/2018 patient developed transaminitis during the hospital stay IV Rocephin was switched to p.o. levofloxacin LFTs are coming down. Plan is to recheck the labs again tomorrow. 07/25/2018-transaminitis most likely secondary to medications may be due to Rocephin. The LFT numbers are continued to trend down. Plan is to recheck the labs tomorrow. History of cholecystectomy and ultrasound of liver is negative for acute changes. (15) Physical debility Is this a current diagnosis for this admission?: Yes Plan: 07/23/2018-physically patient is extremely weak yesterday and standing his knees gaveway almost fell onto the floor nurses helped him to get into the bed. Physical therapy is working with the patient. I think actually the recommendation is for the patient to go to residential facility. But the patient and family decided to take the patient home once he is stable with home health. pt has a walker at home. 07/24/2018 patient is extremely weak to even come out of the bed safely fall precautions will be placed. I spoke to Keisha mechanical planner and also patient's mother Karina and I expressed my concerns and my recommendation is that patient need to go to a short-term rehab. 07/25/2018-physical therapy is working with the patient in my opinion patient benefit from a short-term placement in the rehab facility. (16) Hypercalcemia Is this a current diagnosis for this admission?: Yes Plan: 07/25/2018-patient's calcium level is 10.1 albumin level is 3.6 calcium level is high normal. Continue to watch calcium levels on regular basis. Patient is on calcium acetate 250 mg 3 times daily plan is to discontinue calcium. - Time Time Spent with patient: 15-24 minutes Medications reviewed and adjusted accordingly: Yes Anticipated discharge: SNF
[2018-07-25] MEDS: MAGNESIUM OXIDE 400 MG TABLET PO SCH ×2 (10:13→18:28)
[2018-07-25] MEDS: FUROSEMIDE 20 MG TABLET PO SCH ×2 (10:13→18:28)
[2018-07-25] MEDS: POTASSIUM CHLORIDE 10 MEQ CAPSULE.ER PO SCH ×2 (10:13→18:28)
[2018-07-25] MEDS: ALLOPURINOL 300 MG TABLET PO SCH (10:13)
[2018-07-25] MEDS: FAMOTIDINE 20 MG TABLET PO SCH ×2 (10:13→22:20)
[2018-07-25] MEDS: LEVOFLOXACIN 500 MG/D5W RTU 500 MG/100 ML RTUPB IV SCH (10:13)
[2018-07-25] MEDS: NADOLOL 40 MG TABLET PO SCH (10:14)
--- NOTE | 2018-07-25 11:35 | RADIOLOGY REPORT (SQ) ---
EXAM DESCRIPTION: CHEST SINGLE VIEW COMPLETED DATE/TIME: 07/25/2018 11:28 am REASON FOR STUDY: Pneumonia COMPARISON: 07/22/2018. NUMBER OF VIEWS: One view. TECHNIQUE: Single frontal radiographic view of the chest acquired. LIMITATIONS: None. FINDINGS: LUNGS AND PLEURA: Minimal subsegmental atelectasis in the left base. Left base looks bruno r on today's study. No pneumothorax. No pleural effusion. MEDIASTINUM AND HILAR STRUCTURES: No masses. Contour normal. HEART AND VASCULAR STRUCTURES: Heart normal in size. Normal vasculature. BONES: No acute findings. HARDWARE: Right IJ line, tip to the cavoatrial junction. OTHER: No other significant finding. IMPRESSION: Resolved left basilar infiltrate. Minimal right basilar subsegmental atelectasis. TECHNICAL DOCUMENTATION: JOB ID: [id number] [employer]- All Rights Reserved Reading location - IP/workstation name: [email or web address]
[2018-07-25] MEDS ORDERED: MAG HYDROX/AL HYDROX/SIMETH SUSP 30 ML UDCUP PO PRN (14:22)
--- NOTE | 2018-07-25 15:13 | PDOC CONSULTATION ---
Consultation Consult Date: 07/25/18 Consult reason:: Hematology/Oncology consultation was requested for patient with anemia. History of Present Illness Admission Date/PCP: 07/10/18 01:16 ISHAAN BARRETT MD History of Present Illness: ALEKSANDRA SALAZAR is a 57 year old male whom I met for the first time on 06/15/2018 when he presented to my office for evaluation of anemia and thrombocytopenia. He denies any recent bleeding. Work-up was initiated, but patient was admitted to the hospital before he could return to the office. According to medial records, patient was admitted for angioedema, most likely secondary to Lisinopril. He was intubated and his course has been complicated by pneumonia and physical debility after prolonged hospitalization. He has also had confusion at times and is not thought to be safe to return home at this point. Today, patient states that he wants to go home and is trying to get stronger and do all required tests/treatments, but feels they are not allowing him to go home. Although he converses easily, he does not always answer questions appropriately. He is confused at times and cannot fully tell me about his current overall health. For example, when I ask if he has any constipation or diarrhea, he answers with something completely unrelated. When asked again, he again is not able to say yes or no. He has confabulation with his answers. Past Medical History Cardiac Medical History: Reports: Hyperlipidema, Hypertension Pulmonary Medical History: Denies: Asthma, Chronic Obstructive Pulmonary Disease (COPD) EENT Medical History: Reports: None Denies: Cataracts Neurological Medical History: Denies: Hemorrhagic CVA, Ischemic CVA, Seizures Endocrine Medical History: Denies: Diabetes Mellitus Type 1, Diabetes Mellitus Type 2, Hyperthyroidism, Hypothyroidism Renal/ Medical History: Reports: Other - Prostate cancer Denies: Chronic Kidney Disease, Nephrolithiasis Malignancy Medical History: Reports: None GI Medical History: Denies: Cirrhosis, Hepatitis Musculoskeltal Medical History: Denies: Arthritis, Gout Skin Medical History: Denies: Eczema, Psoriasis Psychiatric Medical History: Reports: Alcohol Dependency, Tobacco Dependency Denies: Substance Abuse Traumatic Medical History: Reports: None Hematology: Reports: Anemia Denies: Bleeding Tendencies Infectious Medical History: Reports: None Past Surgical History Past Surgical History: Reports: Other - Radioactive seed implants for prostate cancer Social History Lives with: Parents Smoking Status: Current Every Day Smoker Frequency of Alcohol Use: Heavy Hx Recreational Drug Use: No Drugs: None Hx Prescription Drug Abuse: No - Advance Directive Resuscitation Status: Full Code Family History Family History: Hyperlipidemia, Hypertension, Malignancy, Other - Alcoholism Parental Family History Reviewed: Yes - Mother and father are both alive in their 80s Children Family History Reviewed: No Sibling(s) Family History Reviewed.: No Medication/Allergy Home Medications: Allopurinol [Zyloprim 300 mg Tablet] 300 mg PO DAILY 07/10/18 Atorvastatin Calcium [Lipitor 20 mg Tablet] 20 mg PO QHS 07/10/18 Calcium Citrate [Calcium Citrate 250 mg Tablet] 250 mg PO TID 07/10/18 Lisinopril [Prinivil 10 mg Tablet] 20 mg PO DAILY 07/10/18 Magnesium Oxide [Mag-Ox 400 mg Tablet] 400 mg PO DAILYP PRN 07/10/18 Nadolol [Corgard] 80 mg PO DAILY 07/10/18 Potassium Chloride [Klor-Con 10 Meq Capsule ER] 20 meq PO DAILY 07/10/18 Tramadol HCl [Ultram 50 mg Tablet] 50 mg PO Q6HP PRN 07/10/18 Allergies/Adverse Reactions: lisinopril Allergy (Severe, Verified 07/10/18 10:24) Swelling of tongue Review of Systems ROS unobtainable: Due to mental status Physical Exam Vital Signs: Temp Pulse Resp BP Pulse Ox 98.2 F 89 16 106/70 97 07/25/18 11:42 07/25/18 11:42 07/25/18 11:42 07/25/18 11:42 07/25/18 11:42 Intake & Output 07/24/18 07/25/18 07/26/18 06:59 06:59 06:59 Intake Total 986 1323 336 Output Total 750 450 Balance 236 873 336 Weight 77.9 kg 79.2 kg General appearance: PRESENT: no acute distress, well-nourished Exam: 57 year old male. Head exam: PRESENT: normocephalic Mouth exam: PRESENT: tongue midline, other - White thrush on tongue. Neck exam: PRESENT: other - central line in place. Respiratory exam: PRESENT: clear to auscultation jhonathan, unlabored Cardiovascular exam: PRESENT: RRR GI/Abdominal exam: PRESENT: soft. ABSENT: tenderness Extremities exam: ABSENT: pedal edema Musculoskeletal exam: PRESENT: normal inspection Neurological exam: PRESENT: altered Psychiatric exam: PRESENT: appropriate affect Focused psych exam: PRESENT: other - As per HPI. Confabulation Skin exam: PRESENT: normal color Results Laboratory Results: 07/25/18 05:25 07/25/18 05:25 07/25/18 07/25/18 05:25 05:25 WBC 13.0 H RBC 3.28 L Hgb 11.2 L Hct 32.9 L MCV 100 H MCH 34.1 H MCHC 33.9 RDW 18.6 H Plt Count 212 Seg Neutrophils % 76.6 Lymphocytes % 10.1 L Monocytes % 10.6 Eosinophils % 1.8 Basophils % 0.9 Absolute Neutrophils 9.9 H Absolute Lymphocytes 1.3 Absolute Monocytes 1.4 Absolute Eosinophils 0.2 Absolute Basophils 0.1 Sodium 137.8 Potassium 4.0 Chloride 99 Carbon Dioxide 25 Anion Gap 14 BUN 25 H Creatinine 0.93 Est GFR ( Amer) > 60 Est GFR (Non-Af Amer) > 60 Glucose 86 Calcium 10.1 Magnesium 1.8 Total Bilirubin 0.7 AST 76 H ALT 115 H Alkaline Phosphatase 147 H Total Protein 6.8 Albumin 3.6 07/09/18 07/09/18 07/10/18 22:55 22:55 05:04 Creatine Kinase 40 L 41 L CK-MB (CK-2) 0.52 Troponin I < 0.012 NT-Pro-B Natriuret Pep 07/10/18 07/10/18 07/10/18 05:04 11:08 11:08 Creatine Kinase 39 L CK-MB (CK-2) 0.52 0.39 Troponin I 0.015 < 0.012 NT-Pro-B Natriuret Pep 07/11/18 04:01 Creatine Kinase CK-MB (CK-2) Troponin I NT-Pro-B Natriuret Pep 621 Impressions: Head CT 07/09/18 23:33 IMPRESSION: Limited due to motion however no evidence for acute intracranial abnormality. Pansinusitis. TECHNICAL DOCUMENTATION: Quality ID # 436: Final reports with documentation of one or more dose reduction techniques (e.g., Automated exposure control, adjustment of the mA and/or kV according to patient size, use of iterative reconstruction technique) copyright 2011 [employer]- All Rights Reserved Thyroid Ultrasound 07/15/18 08:33 IMPRESSION: LIMITED STUDY. ECHOGENIC SOFT TISSUE, INDETERMINATE, WITH NO EVIDENCE OF ABSCESS OR FLUID COLLECTION. THE PATIENT IS SCHEDULED FOR CT SCAN OF THE SOFT TISSUES OF THE NECK. Soft Tissue Neck CT 07/15/18 11:01 IMPRESSION: 1. NO SIGNIFICANT FINDING IN THE SOFT TISSUES OF THE NECK. NO EVIDENCE OF SOFT TISSUE MASS, ABSCESS, OR ADENOPATHY. 2. BILATERAL PLEURAL EFFUSIONS WITH EXTENSIVE CONSOLIDATION IN THE LEFT UPPER LOBE. 3. FLUID THROUGHOUT THE PARANASAL SINUSES. THIS MAY BE EXACERBATED BY PRESENCE OF THE NASOGASTRIC TUBE. Abdomen Ultrasound 07/22/18 00:00 IMPRESSION: NORMAL RIGHT UPPER QUADRANT ULTRASOUND. Chest X-Ray 07/25/18 00:00 IMPRESSION: Resolved left basilar infiltrate. Minimal right basilar subsegmental atelectasis. Assessment & Plan - Diagnosis (1) Alcohol abuse Is this a current diagnosis for this admission?: Yes Plan: Longstanding. Patient understands that he needs to stop. No evidence of DTs currently. (2) Transaminitis Is this a current diagnosis for this admission?: Yes Plan: chronic, most likely due to his chronic alcohol abuse. (3) Anemia Qualifiers: Anemia type: unspecified type Qualified Code(s): D64.9 - Anemia, unspecified Is this a current diagnosis for this admission?: Yes Plan: Work-up has been in progress. SPEP showed a faint monoclonal protein. I will check iron, B12, Folate today. Currently, HGB is quite stable. No indication for transfusion. (4) Thrombocytopenia Is this a current diagnosis for this admission?: No Plan: Platelet count in my office last month was 66. Currently, much improved. Will continue to monitor. - Plan Summary Plan Summary: I agree with assessment that patient is not currently stable for discharge. I will be happy to follow and help in any way. Please call if needed.
[2018-07-25] MEDS: ATORVASTATIN CALCIUM 20 MG TABLET PO SCH (22:20)
[2018-07-26 04:12] LABS: ABSOLUTE RETICS # 0.074 10^6/uL (0.028-0.122); RETICULOCYTE COUNT (AUTO) 2.16 % (0.66-2.85)
[2018-07-26 04:26] LABS: IRON(TIBC) 35.5 ug/dL (49-181)
--- NOTE | 2018-07-26 07:49 | PDOC PROGRESS REPORT ---
Subjective Progress Note for:: 07/26/18 Subjective:: Patient without new complaints. Anxious to go home. He was able to tell me what BP medication he was on before and the name of his new BP medication He knows not to take the lisinopril any more. Reason For Visit: ACUTE ANGIOEDEMA WITH AIRWAY OBSTRUCTION Physical Exam Vital Signs: Temp Pulse Resp BP Pulse Ox 98.2 F 83 20 103/68 95 07/26/18 03:43 07/26/18 03:43 07/26/18 03:43 07/26/18 03:43 07/26/18 03:43 Intake & Output 07/25/18 07/26/18 07/27/18 06:59 06:59 06:59 Intake Total 1323 486 Output Total 450 1050 Balance 873 -564 Weight 79.2 kg 78.3 kg General appearance: PRESENT: well-developed, well-nourished Head exam: PRESENT: normocephalic Respiratory exam: PRESENT: unlabored Neurological exam: PRESENT: alert, awake, oriented to person, oriented to place, oriented to situation Psychiatric exam: PRESENT: appropriate affect Skin exam: PRESENT: normal color Additional comments: Appears much more lucid today. Able to answer questions much more appropriately. Results Laboratory Results: 07/25/18 05:25 07/25/18 05:25 07/26/18 07/26/18 07/26/18 03:40 03:40 03:40 Retic Count (auto) 2.16 Absolute Retic 0.074 Magnesium 1.9 Iron 35.5 L TIBC 288 % Saturation 12 Ferritin 1060.00 H Vitamin B12 522.0 Folate 7.80 07/09/18 07/09/18 07/10/18 22:55 22:55 05:04 Creatine Kinase 40 L 41 L CK-MB (CK-2) 0.52 Troponin I < 0.012 NT-Pro-B Natriuret Pep 07/10/18 07/10/18 07/10/18 05:04 11:08 11:08 Creatine Kinase 39 L CK-MB (CK-2) 0.52 0.39 Troponin I 0.015 < 0.012 NT-Pro-B Natriuret Pep 07/11/18 04:01 Creatine Kinase CK-MB (CK-2) Troponin I NT-Pro-B Natriuret Pep 621 Impressions: Head CT 07/09/18 23:33 IMPRESSION: Limited due to motion however no evidence for acute intracranial abnormality. Pansinusitis. TECHNICAL DOCUMENTATION: Quality ID # 436: Final reports with documentation of one or more dose reduction techniques (e.g., Automated exposure control, adjustment of the mA and/or kV according to patient size, use of iterative reconstruction technique) copyright 2011 [employer]- All Rights Reserved Thyroid Ultrasound 07/15/18 08:33 IMPRESSION: LIMITED STUDY. ECHOGENIC SOFT TISSUE, INDETERMINATE, WITH NO EVIDENCE OF ABSCESS OR FLUID COLLECTION. THE PATIENT IS SCHEDULED FOR CT SCAN OF THE SOFT TISSUES OF THE NECK. Soft Tissue Neck CT 07/15/18 11:01 IMPRESSION: 1. NO SIGNIFICANT FINDING IN THE SOFT TISSUES OF THE NECK. NO EVIDENCE OF SOFT TISSUE MASS, ABSCESS, OR ADENOPATHY. 2. BILATERAL PLEURAL EFFUSIONS WITH EXTENSIVE CONSOLIDATION IN THE LEFT UPPER LOBE. 3. FLUID THROUGHOUT THE PARANASAL SINUSES. THIS MAY BE EXACERBATED BY PRESENCE OF THE NASOGASTRIC TUBE. Abdomen Ultrasound 07/22/18 00:00 IMPRESSION: NORMAL RIGHT UPPER QUADRANT ULTRASOUND. Chest X-Ray 07/25/18 00:00 IMPRESSION: Resolved left basilar infiltrate. Minimal right basilar subseg mental atelectasis. Assessment & Plan - Diagnosis (1) Alcohol abuse Is this a current diagnosis for this admission?: Yes (2) Transaminitis Is this a current diagnosis for this admission?: Yes (3) Anemia Qualifiers: Anemia type: unspecified type Qualified Code(s): D64.9 - Anemia, unspecified Is this a current diagnosis for this admission?: Yes Plan: His HGB remains stable. Iron, B12, Folate, TSH, SPEP have all been normal. This appears to be anemia of chronic disease and possibly due to alcohol. (4) Thrombocytopenia Is this a current diagnosis for this admission?: No Plan: Much improved from baseline. Currently normal. - Plan Summary Plan Summary: I will be happy to see him again in the office for further follow-up. Please call with any further questions or concerns, otherwise, I will sign off.
[2018-07-26 08:23] LABS: ABSOLUTE BASOPHILS # (AUTO) 0.1 10^3/uL (0.0-0.2); ABSOLUTE EOSINOPHILS # (AUTO) 0.2 10^3/uL (0.0-0.6); ABSOLUTE LYMPHOCYTES (AUTO) 1.2 10^3/uL (0.5-4.7); ABSOLUTE MONOCYTES (AUTO) 1.2 10^3/uL (0.1-1.4); ABSOLUTE NEUT (AUTO) 7.6 10^3/uL (1.7-8.2); BASOPHILS % (AUTO) 0.9 % (0-2); EOSINOPHILS % (AUTO) 1.8 % (0-6); HEMOGLOBIN 11.7 g/dL (13.5-17.0); LYMPHOCYTES % (AUTO) 11.4 % (13-45); MEAN CORPUSCULAR HEMOGLOBIN 34.4 pg (27.0-33.4); MEAN CORPUSCULAR HGB CONC 34.5 g/dL (32.0-36.0); MEAN CORPUSCULAR VOLUME 100 fl (80-97); MONOCYTES % (AUTO) 11.7 % (3-13); PLATELET COUNT 209 10^3/uL (150-450); RED CELL DISTRIBUTION WIDTH 18.1 % (11.5-14.0); SEGMENTED NEUTROPHILS % (AUTO) 74.2 % (42-78); TOTAL CELLS COUNTED % (AUTO) 100 %; WHITE BLOOD COUNT 10.2 10^3/uL (4.0-10.5)
[2018-07-26 08:39] LABS: ALANINE AMINOTRANSFERASE 102 U/L (21-72); ALBUMIN 3.4 g/dL (3.5-5.0); ALKALINE PHOSPHATASE 136 U/L (38-126); ANION GAP 14 (5-19); ASPARTATE AMINO TRANSFERASE 60 U/L (17-59); BILIRUBIN,DIRECT 0.4 mg/dL (0.0-0.4); BLOOD UREA NITROGEN 23 mg/dL (7-20); CALCIUM 10.1 mg/dL (8.4-10.2); CARBON DIOXIDE 22 mmol/L (22-30); CHLORIDE 102 mmol/L (98-107); GLUCOSE 89 mg/dL (75-110); POTASSIUM 3.9 mmol/L (3.6-5.0); SODIUM 137.7 mmol/L (137-145); TOTAL PROTEIN 6.7 g/dL (6.3-8.2)
[2018-07-26] MEDS ORDERED: LORAZEPAM INJ 2 MG/1 ML VIAL IV PRN (08:50)
--- NOTE | 2018-07-26 09:02 | PDOC PROGRESS REPORT ---
Subjective Progress Note for:: 07/26/18 Subjective:: Patient still intubated chest x-ray done this morning shows complete wiping out of the left side of the chest most likely secondary to mucous plug. I discussed with Dr. Colunga is going to do the bronchoscopy this morning. We are going to do the follow-up chest x-ray after that. And temperature is 102.6. To start him on IV antibiotic therapy septic work is going to be ordered. 07/22/2018-patient was transferred from ICU to [facility] yesterday. No acute events in the last 24 hours. Patient is afebrile. T-max is 98.2. Blood pressure is 138/81. Comfortably in the bed communicating very well. Denies any problems. Main concern is elevated LFTs are was placed for liver ultrasound today. Plan is to discontinue IV Rocephin and IV levofloxacin 500 mg daily. medication change confirmed with Rachel in the pharmacy. 07/23/2018 no acute events in the last 24 hours. Patient is afebrile. T-max is 97.3. Ultrasound of the liver was done yesterday for elevated liver enzymes report came back normal. Antibiotics switched from IV Rocephin to p.o. levofloxacin LFTs are coming down. It is comfortably in the bed denies any complaints. Nurse told me patient is extremely weak he cannot even stand on his home yesterday he is more almost fell onto the floor on standing physical therapy is working with the patient. associate media planner spoke to the patient and his mother they are requesting that patient to be discharged home when he is ready with home health. Patient is not ready to go home yet. 07/24/2018-no acute events in the last 24 hours. Patient is afebrile. T-max is 98.5. Chest x-ray done 321 shows improvement of the left lower lobe infiltrate. His LFTs have continued to improve. pt is comfortable in the bed expressing desire to go home. In my opinion pt is unsafe to go home. Spoke to patient's mom Karina and expressed her my concerns she agreed with me that she may not able to take him at home and rehab facility is the best option but she expressed her concern that patient has [employer] insurance may not cover the rehab placement. I told her social media marketing specialist is going to work with the insurance company to see if he is qualified are not. 07/25/2018-patient is comfortable in the bed denies any complaints according to him he was referred to [facility] [place] by Dr. Sneed for anemia Dr. Denton took care of him there and confirm that he has anemia he wants to be consulted with Dr. Denton during this hospital stay. And nurses are telling me that patient is calling spray dry operator calling other family members saying complaining he was held in this hospital against his as will, I explained to him that I spoke to his mother Karina yesterday and spoke to the patient myself yesterday that he is unsafe for him to go home because of the physical debility and high risk of falls at home my recommendation is to go for a short-term rehab for couple of weeks patient said he understood my concerns he is willing to stay her e continue to participate in physical therapy. Patient is afebrile. 06/28/2018 patient was confused not agitated and his speech is not coherent. The nurses are also telling me his speech is not well organized he is confused and having the delirium symptoms he commented to the nurses that he wants to talk to you restart on any he was he recognized he will. thisMorning he is asking me what time is it, didnot remember if he had breakfast or not Reason For Visit: ACUTE ANGIOEDEMA WITH AIRWAY OBSTRUCTION Physical Exam Vital Signs: Temp Pulse Resp BP Pulse Ox 98.2 F 83 20 103/68 95 07/26/18 03:43 07/26/18 03:43 07/26/18 03:43 07/26/18 03:43 07/26/18 03:43 Intake & Output 07/25/18 07/26/18 07/27/18 06:59 06:59 06:59 Intake Total 1323 486 Output Total 450 1050 Balance 873 -564 Weight 79.2 kg 78.3 kg General appearance: PRESENT: no acute distress Head exam: PRESENT: atraumatic Eye exam: PRESENT: PERRLA Neck exam: ABSENT: carotid bruit, JVD, lymphadenopathy, thyromegaly Respiratory exam: PRESENT: clear to auscultation jhonathan. ABSENT: rales, rhonchi, wheezes Cardiovascular exam: PRESENT: RRR. ABSENT: diastolic murmur, rubs, systolic murmur GI/Abdominal exam: PRESENT: normal bowel sounds, soft. ABSENT: distended, guarding, mass, organolmegaly, rebound, tenderness Extremities exam: PRESENT: full ROM. ABSENT: calf tenderness, clubbing, pedal edema Neurological exam: PRESENT: alert, awake, oriented to person, oriented to place, oriented to time, oriented to situation, CN II-XII grossly intact. ABSENT: motor sensory deficit Psychiatric exam: PRESENT: appropriate affect, normal mood. ABSENT: homicidal ideation, suicidal ideation Results Laboratory Results: 07/26/18 03:40 07/26/18 03:40 07/26/18 07/26/18 07/26/18 03:40 03:40 03:40 WBC RBC Hgb Hct MCV MCH MCHC RDW Plt Count Seg Neutrophils % Lymphocytes % Monocytes % Eosinophils % Basophils % Absolute Neutrophils Absolute Lymphocytes Absolute Monocytes Absolute Eosinophils Absolute Basophils Retic Count (auto) 2.16 Absolute Retic 0.074 Sodium Potassium Chloride Carbon Dioxide Anion Gap BUN Creatinine Est GFR ( Amer) Est GFR (Non-Af Amer) Glucose Calcium Magnesium 1.9 Iron 35.5 L TIBC 288 % Saturation 12 Ferritin 1060.00 H Total Bilirubin AST ALT Alkaline Phosphatase Total Protein Albumin Vitamin B12 522.0 Folate 7.80 07/26/18 07/26/18 03:40 03:40 WBC 10.2 RBC 3.40 L Hgb 11.7 L Hct 34.0 L MCV 100 H MCH 34.4 H MCHC 34.5 RDW 18.1 H Plt Count 209 Seg Neutrophils % 74.2 Lymphocytes % 11.4 L Monocytes % 11.7 Eosinophils % 1.8 Basophils % 0.9 Absolute Neutrophils 7.6 Absolute Lymphocytes 1.2 Absolute Monocytes 1.2 Absolute Eosinophils 0.2 Absolute Basophils 0.1 Retic Count (auto) Absolute Retic Sodium 137.7 Potassium 3.9 Chloride 102 Carbon Dioxide 22 Anion Gap 14 BUN 23 H Creatinine 0.88 Est GFR ( Amer) > 60 Est GFR (Non-Af Amer) > 60 Glucose 89 Calcium 10.1 Magnesium Cancelled Iron TIBC % Saturation Ferritin Total Bilirubin 1.0 AST 60 H ALT 102 H Alkaline Phosphatase 136 H Total Protein 6.7 Albumin 3.4 L Vitamin B12 Folate 07/09/18 07/09/18 07/10/18 22:55 22:55 05:04 Creatine Kinase 40 L 41 L CK-MB (CK-2) 0.52 Troponin I < 0.012 NT-Pro-B Natriuret Pep 07/10/18 07/10/18 07/10/18 05:04 11:08 11:08 Creatine Kinase 39 L CK-MB (CK-2) 0.52 0.39 Troponin I 0.015 < 0.012 NT-Pro-B Natriuret Pep 07/11/18 04:01 Creatine Kinase CK-MB (CK-2) Troponin I NT-Pro-B Natriuret Pep 621 Impressions: Head CT 07/09/18 23:33 IMPRESSION: Limited due to motion however no evidence for acute intracranial abnormality. Pansinusitis. TECHNICAL DOCUMENTATION: Quality ID # [id number]: Final reports with documentation of one or more dose reduction techniques (e.g., Automated exposure control, adjustment of the mA and/or kV according to patient size, use of iterative reconstruction technique) copyright 2011 [employer]- All Rights Reserved Thyroid Ultrasound 07/15/18 08:33 IMPRESSION: LIMITED STUDY. ECHOGENIC SOFT TISSUE, INDETERMINATE, WITH NO EVIDENCE OF ABSCESS OR FLUID COLLECTION. THE PATIENT IS SCHEDULED FOR CT SCAN OF THE SOFT TISSUES OF THE NECK. Soft Tissue Neck CT 07/15/18 11:01 IMPRESSION: 1. NO SIGNIFICANT FINDING IN THE SOFT TISSUES OF THE NECK. NO EVIDENCE OF SOFT TISSUE MASS, ABSCESS, OR ADENOPATHY. 2. BILATERAL PLEURAL EFFUSIONS WITH EXTENSIVE CONSOLIDATION IN THE LEFT UPPER LOBE. 3. FLUID THROUGHOUT THE PARANASAL SINUSES. THIS MAY BE EXACERBATED BY PRESENCE OF THE NASOGASTRIC TUBE. Abdomen Ultrasound 07/22/18 00:00 IMPRESSION: NORMAL RIGHT UPPER QUADRANT ULTRASOUND. Chest X-Ray 07/25/18 00:00 IMPRESSION: Resolved left basilar infiltrate. Minimal right basilar subsegmental atelectasis. Assessment and Plan - Diagnosis (1) Altered mental status Is this a current diagnosis for this admission?: Yes Plan: 07/26/2018-patient has a confusion and change in mental status for the last 2 days. This morning he was confused not agitated. Unable to unable to remember the time of the day is unable to remember what they said breakfast or not. We are going to arrange for the psych consult. The change in mental status/acute encephalopathy may be secondary to alcohol withdrawal symptoms. He has history of heavy alcohol use. And is to put him on a folic acid and thiamine started on banana bag and started on IV Ativan 1 mg every 6 as needed for agitation and psych consult was requested. For the DTs. Fall precautions are requested. (2) Acute respiratory failure Qualifiers: Respiratory failure complication: hypoxia Qualified Code(s): J96.01 - Acute respiratory failure with hypoxia Is this a current diagnosis for this admission?: Yes Plan: Secondary to acute angioedema of the tongue with subsequent pneumonia. Resolved 07/22/2018-patient's pulse ox is 97% on room air. Acute respiratory failure secondary to angioedema of the tongue and subsequent pneumonia is resolved. She is presently on DuoNeb nebulizations every 6 as needed and Mucomyst 600 mg nebs twice a day. Plan is to continue the present management. Chest x-ray was done this morning I personally reviewed the chest x-ray from did not see any pleural effusions and there is m improvement in pneumonia compared to the previous x- rays. Plan is to change the IV Rocephin to IV Levaquin today. 07/23/2018-patient pulse ox is 95% on room air. Acute respiratory failure secondary to angioedema of the tongue and subsequent pneumonia is resolved. P atient is still on DuoNeb nebulizations every 6 hours and Mucomyst 600 mg nebs twice a day. Chest x-ray impression is partial clearing of the left lung infiltrate compared to previous studies. There is no mention of pleural effusions. plan is to discontinue Mucomyst. 07/24/2018-patient pulse ox today is 93% on room air. Acute respiratory failure secondary to angioedema of the tongue and subsequent pneumonia is resolved. Patient is on DuoNeb nebulizations every 6. Mucomyst is discontinued. Chest x- ray done on 07/22/2018 indicates clearing of the left lower lobe infiltrated. Patient is afebrile. Patient is presently on levofloxacin 500 mg p.o. daily. 07/25/2018-patient's pulse ox today is 96% respiratory failure secondary to angioedema of the tongue and subsequently pneumonia is resolved. The blood cultures are showing Pseudomonas hominis and patient is presently on levofloxacin. Cultures came from 07/16/2018 and Gram stain showed staph aureus and Klebsiella pneumonia sensitivity to levofloxacin and also. Plan is to continue the present management. 07/26/2018 patient pulse ox today on room air. Acute respiratory failure secondary to angioedema and subsequent pneumonia is resolved. (3) Laceration of tongue Qualifiers: Encounter type: initial encounter Qualified Code(s): S01.512A - Laceration without foreign body of oral cavity, initial encounter Is this a current diagnosis for this admission?: Yes (4) Collapse of left lung Is this a current diagnosis for this admission?: Yes (5) Sepsis Is this a current diagnosis for this admission?: Yes (6) Hypokalemia Is this a current diagnosis for this admission?: Yes (7) Pneumonia Qualifiers: Pneumonia type: due to methicillin-sensitive Staphylococcus aureus (MSSA) Laterality: bilateral Lung location: lower lobe of lung Qualified Code(s): J15.211 - Pneumonia due to Methicillin susceptible Staphylococcus aureus Is this a current diagnosis for this admission?: Yes (8) Collapse of left lung Is this a current diagnosis for this admission?: Yes (9) Bilateral pleural effusion Is this a current diagnosis for this admission?: Yes (10) Delirium due to another medical condition Is this a current diagnosis for this admission?: Yes Plan: The patient did exhibit delirium. It seems to be getting better each day. It is likely related to the combination of his pneumonia, acute critical illness with extended stay in the intensive care unit and possibly a reaction to antibiotic therapy. Continue to monitor. 07/22/2018-patient is alert and awake communicating very well. Delirium due to medications improved. This is hospital-acquired condition. Most likely secondary to pneumonia and multiple comorbidities acute illness and extensive stay in the intensive care. 06/25/2018-patient is comfortably in the bed alert and awake oriented communicating very well. Delirium due to medications resolved. 07/24/2018 patient is comfortably in the bed alert and awake expressing desire to go home. Delirium due to combination of pneumonia acute respiratory failure with intubation, sepsis resolved. 07/25/2018-patient is alert and awake oriented communicating well. Delirium secondary to medications/medical conditions resolved. 07/26/2018-patient has recurrence of delirium symptoms. Unable to communicate properly. The symptoms may be secondary to history of alcohol use, medications, medical conditions like recent history of acute respiratory failure with intubation and extubation, development of hospital-acquired pneumonia, sepsis. Needs to arrange for the psych consult fall precautions are requested started on Ativan 1 mg IV every 6 as needed for agitation fall precautions are requested to watch for the DTs. (11) Hypokalemia Is this a current diagnosis for this admission?: Yes (12) Hypomagnesemia Is this a current diagnosis for this admission?: Yes (13) Angioedema of intestine due to angiotensin converting enzyme inhibitor (KARLOS-I) Is this a current diagnosis for this admission?: Yes (14) Hypertension Qualifiers: Hypertension type: essential hypertension Qualified Code(s): I10 - Essential (primary) hypertension Is this a current diagnosis for this admission?: No Plan: 07/22/2018 patient has history of hypertension blood pressure today is 138/81. Patient is presently on nadolol 80 mg p.o. daily plan is to continue the present management. 07/23/2018-patient history of hypertension his latest blood pressure is 111/73. Well controlled. Presently on nadolol 80 mg p.o. daily plan is to continue the present management. 07/24/2018-patient blood pressure today is 109/71 well-controlled presently on nadolol 80 mg p.o. daily plan is to continue the present management. 07/25/2018-patient blood pressure today is 120/72 presently on nadolol 80 mg p.o. daily and Lasix 20 mg p.o. twice daily plan is to continue the present management. 07/26/2018 blood pressure this morning is 80/60 manually is 101/70 still on the lower side we going to stop furosemide he is receiving 20 mg twice a day. To check her blood pressures every shift. (15) Transaminitis Is this a current diagnosis for this admission?: Yes Plan: 07/22/2018 elevated liver enzymes after the admission. May be secondary to IV Rocephin. Antibiotics is switched to IV Levaquin 500 mg daily. plan is to recheck the LFTs tomorrow. Liver ultrasound was requested. 07/23/2018-patient came in with elevated liver enzymes this is happened during the hospital stay .ultrasound of the liver done yesterday which was normal .antibiotics were changed from IV Rocephin to levofloxacin , LFTs are coming down. Plan is to check the LFTs again tomorrow. 07/24/2018 patient developed transaminitis during the hospital stay IV Rocephin was switched to p.o. levofloxacin LFTs are coming down. Plan is to recheck the labs again tomorrow. 07/25/2018-transaminitis most likely secondary to medications may be due to Rocephin. The LFT numbers are continued to trend down. Plan is to recheck the labs tomorrow. History of cholecystectomy and ultrasound of liver is negative for acute changes. 07/26/2018-LFTs are continues to trend down. Almost came close to normal. Most likely secondary to medications possibly due to IV Rocephin. Plan is to recheck LFTs tomorrow. (16) Physical debility Is this a current diagnosis for this admission?: Yes Plan: 07/23/2018-physically patient is extremely weak yesterday and standing his knees gaveway almost fell onto the floor nurses helped him to get into the bed. Physical therapy is working with the patient. I think actually the recommendation is for the patient to go to [facility] facility. But the patient and family decided to take the patient home once he is stable with home health. pt has a walker at home. 07/24/2018 patient is extremely weak to even come out of the bed safely fall precautions will be placed. I spoke to Keisha cyber policy and strategy planner and also patient's mother Karina and I expressed my concerns and my recommendation is that patient need to go to a short-term rehab. 07/25/2018-physical therapy is working with the patient in my opinion patient benefit from a short-term placement in the rehab facility. 07/26/2018-patient is confused not agitated having the delirium symptoms. He is not safe to be discharged home. (17) Hypercalcemia Is this a current diagnosis for this admission?: Yes Plan: 07/25/2018-patient's calcium level is 10.1 albumin level is 3.6 calcium level is high normal. Continue to watch calcium levels on regular basis. Patient is on calcium acetate 250 mg 3 times daily plan is to discontinue calcium suplementation 07/26/2018 serum calcium level is 10.1 and albumin is within normal range patient on calcium acetate to 50 mg 3 times a day which was discontinued. Plan is to continue to closely monitor the serum calcium levels. - Time Time Spent with patient: 15-24 minutes Medications reviewed and adjusted accordingly: Yes Anticipated discharge: SNF
[2018-07-26] MEDS ORDERED: ONDANSETRON HCL INJ/PF 4 MG/2 ML SDV IV PRN (09:30)
[2018-07-26] MEDS: FAMOTIDINE 20 MG TABLET PO SCH ×2 (11:36→22:25)
[2018-07-26] MEDS: NADOLOL 40 MG TABLET PO SCH (11:36)
[2018-07-26] MEDS: POTASSIUM CHLORIDE 10 MEQ CAPSULE.ER PO SCH ×2 (11:36→18:31)
[2018-07-26] MEDS: MAGNESIUM OXIDE 400 MG TABLET PO SCH ×2 (11:36→18:31)
[2018-07-26] MEDS: ALLOPURINOL 300 MG TABLET PO SCH (11:36)
[2018-07-26] MEDS: LEVOFLOXACIN 500 MG/D5W RTU 500 MG/100 ML RTUPB IV SCH (11:37)
[2018-07-26] MEDS: FUROSEMIDE 20 MG TABLET PO SCH ×2 (11:37→18:31)
--- NOTE | 2018-07-26 16:39 | PSYCHOLOGICAL NOTE ---
Psych Note - Psych Note Date seen by psych provider: 07/26/18 Time seen by psych provider: 20:00 - Evaluation from [id number]. Psych Note: Reason for Consult: Delirium Contact Permissions: Parents at bedside Patient is a 57 year old male who presented to the ED on 07/09/18 for tongue swelling which worsened, he had to be intubated and then the versed and porpofol was not keeping him sedated, he responded well to fentanyl pushes and was then put on a fentanyl drip. he was subsequently admitted to hospitalist services 07/10/18 for ARF, angioedema of intestine due to angiotension converting enzyme inhibitor (KARLOS-I), HTN, hyperlipidemia, alcohol abuse, and tobacco use disorder moderate dependency. He stated "first I had an allergic reaction, I was brought to the ED in the middle of the night, the last thing I remember is waking up here at [facility], I didn't know where I had been and my mind was trying to fill in time and they discovered I was anemic." He reportes "I was seeing things, had vivid dreams and talking to people not there." He further stated "now I know none of it was real but I had been isolated and so at the time I thought it was real." He stated at home he "takes Melatonin and recently had been using Z Quill for sleep if anything." He identified "last night I slept good and I needed a good night's sleep." He admitted to drinking about 10 the sparkling alcohol drinks called Truly a day "for awhile now," and mentioned something about a yea r. He reported he would come home after work and have some drinks. He acknowledged he retired the beginning of July 2018. He stated "I haven't had any drinks since before I came to the hospital, I don't have any DUIs, and every once in awhile I would smoke a cigar." He denied wanting linkage to detox or treatment and stated "I don't think I need treatment." he denied previous MH history and treatment. He denied previous alcohol treatment. Patient was alert and oriented to self, person, place, time frame and situation. Mood was euthymic with congruent affect. He denied SI/HI. He did not appear to be responding to internal stimuli as evidenced by fair eye contact, answering questions appropriately when addressed, staying on topic and carrying on dialogue conversation. He was able to describe and talk about the psychosis he had experienced and now knows they weren't real. Thought processes were slower but linear. Conversational speech was within normal limits for rate, tone and prosody. Intellectual abilities are estimated to be average. Insight, judgment and impulse control were fair as evidenced by knowledge of hallucinations, recognizing now they weren't real and understanding what may have caused them. Parents at bedside. Mother identified alcoholism runs on her side of the family, and mentioned all of his brothers drank. Parents denied family history of MH. They also denied any MH history related to patient. Chart review revealed patient had been intubated 07/22/18, he has been administered Ambien for sleep and he has a history of drinking 10 Truly beverages a day for at least a year up until coming to the ED. Hospitalist progress note from today noted patient was confused, not agitated, speech was not coherent, he asked what time it was and could not recall whether he had breakfast or not. This did not seem the case during evaluation with patient and he appeared to have appropriate interactions with his parents. Diagnosis: 303.90 (F10.20) Alcohol Use Disorder, Moderate to Severe Medication recommendation made by the psychiatric medical provider, Dr. Seymour MD., includes: Discontinue Ambien 5MG at night for sleep (has been known to cause dysphoria and psychosis in some patients) Impression/Plan: Patient is cleared from acute psychiatric services. He denied SI/HI and no observed psychosis. Appropriate interaction with parents observed. No family history or patient history of MH. He denied wanting alcohol treatment or detox. If he changes his mind behavioral health can link to resources. Consulted with Dr. Kang regarding the management and care of patient. Attending nurse made aware of recommendations.
[2018-07-26] MEDS: NORMAL SALINE 1000 ML 1,000 ML with POTASSIUM CHLORIDE 20 MEQ, MAGNESIUM SULFATE 8 MEQ,... IV SCH ×5 (18:31)
[2018-07-26] MEDS: ATORVASTATIN CALCIUM 20 MG TABLET PO SCH (22:25)
[2018-07-27 06:25] LABS: ALANINE AMINOTRANSFERASE 85 U/L (21-72); ALBUMIN 3.2 g/dL (3.5-5.0); ALKALINE PHOSPHATASE 115 U/L (38-126); ANION GAP 10 (5-19); ASPARTATE AMINO TRANSFERASE 54 U/L (17-59); BILIRUBIN,DIRECT 0.3 mg/dL (0.0-0.4); BILIRUBIN,TOTAL 0.9 mg/dL (0.2-1.3); BLOOD UREA NITROGEN 22 mg/dL (7-20); CALCIUM 9.3 mg/dL (8.4-10.2); CARBON DIOXIDE 25 mmol/L (22-30); CHLORIDE 101 mmol/L (98-107); GLUCOSE 85 mg/dL (75-110); POTASSIUM 3.9 mmol/L (3.6-5.0); SODIUM 135.8 mmol/L (137-145)
[2018-07-27] MEDS: POTASSIUM CHLORIDE 10 MEQ CAPSULE.ER PO SCH ×2 (09:25→17:54)
[2018-07-27] MEDS: MAGNESIUM OXIDE 400 MG TABLET PO SCH ×2 (09:25→17:55)
[2018-07-27] MEDS: LEVOFLOXACIN 500 MG/D5W RTU 500 MG/100 ML RTUPB IV SCH (09:26)
[2018-07-27] MEDS: ALLOPURINOL 300 MG TABLET PO SCH (09:26)
[2018-07-27] MEDS: FAMOTIDINE 20 MG TABLET PO SCH ×2 (09:26→21:21)
[2018-07-27] MEDS: FUROSEMIDE 20 MG TABLET PO SCH ×2 (09:26→17:55)
[2018-07-27] MEDS: NADOLOL 40 MG TABLET PO SCH (09:27)
--- NOTE | 2018-07-27 14:49 | PDOC PROGRESS REPORT ---
Subjective Progress Note for:: 07/27/18 Subjective:: This is a 57 yr old male with HTN on lisinopril who presented with tongue and mouth swelling who decompensated and was intubated in the ER due to angioedema. He was admitted to the ICU and was initially on steroids. On 07/12, he developed a complete left lung whiteout possibly form a mucus plug. He underwent bronchoscopy on 07/13. He was successfully extubated on 07/19. He had a few episodes of waxing and waning confusion on the floor. This morning, patient is AO x 4. He is awaiting SNF placement. Reason For Visit: SOB Physical Exam Vital Signs: Temp Pulse Resp BP Pulse Ox 97.3 F 80 14 102/67 100 07/27/18 11:43 07/27/18 11:43 07/27/18 11:43 07/27/18 11:43 07/27/18 11:43 Intake & Output 07/26/18 07/27/18 07/28/18 06:59 06:59 06:59 Intake Total 486 1229 1375 Output Total 1050 1000 275 Balance -241 802 7073 Weight 172 lb 9.951 oz 176 lb 5.917 oz General appearance: PRESENT: no acute distress, well-developed, well-nourished Head exam: PRESENT: atraumatic, normocephalic Eye exam: PRESENT: conjunctiva pink, EOMI, PERRLA. ABSENT: scleral icterus Ear exam: PRESENT: normal external ear exam Mouth exam: PRESENT: moist, tongue midline Neck exam: ABSENT: carotid bruit, JVD, lymphadenopathy, thyromegaly Respiratory exam: PRESENT: clear to auscultation jhonathan. ABSENT: rales, rhonchi, wheezes Cardiovascular exam: PRESENT: RRR. ABSENT: diastolic murmur, rubs, systolic murmur Pulses: PRESENT: normal dorsalis pedis pul GI/Abdominal exam: PRESENT: normal bowel sounds, soft. ABSENT: distended, guarding, mass, organolmegaly, rebound, tenderness Rectal exam: PRESENT: deferred Neurological exam: PRESENT: alert, awake, oriented to person, oriented to place, oriented to time, CN II-XII grossly intact. ABSENT: motor sensory deficit Results Laboratory Results: 07/26/18 03:40 07/27/18 05:20 07/27/18 05:20 Sodium 135.8 L Potassium 3.9 Chloride 101 Carbon Dioxide 25 Anion Gap 10 BUN 22 H Creatinine 0.91 Est GFR ( Amer) > 60 Est GFR (Non-Af Amer) > 60 Glucose 85 Calcium 9.3 Magnesium 2.2 Total Bilirubin 0.9 AST 54 ALT 85 H Alkaline Phosphatase 115 Total Protein 6.0 L Albumin 3.2 L 07/09/18 07/09/18 07/10/18 22:55 22:55 05:04 Creatine Kinase 40 L 41 L CK-MB (CK-2) 0.52 Troponin I < 0.012 NT-Pro-B Natriuret Pep 07/10/18 07/10/18 07/10/18 05:04 11:08 11:08 Creatine Kinase 39 L CK-MB (CK-2) 0.52 0.39 Troponin I 0.015 < 0.012 NT-Pro-B Natriuret Pep 07/11/18 04:01 Creatine Kinase CK-MB (CK-2) Troponin I NT-Pro-B Natriuret Pep 621 Impressions: Head CT 07/09/18 23:33 IMPRESSION: Limited due to motion however no evidence for acute intracranial abnormality. Pansinusitis. TECHNICAL DOCUMENTATION: Quality ID # [id number]: Final reports with documentation of one or more dose reduction techniques (e.g., Automated exposure control, adjustment of the mA and/or kV according to patient size, use of iterative reconstruction technique) copyright 2011 [employer]- All Rights Reserved Thyroid Ultrasound 07/15/18 08:33 IMPRESSION: LIMITED STUDY. ECHOGENIC SOFT TISSUE, INDETERMINATE, WITH NO EVIDENCE OF ABSCESS OR FLUID COLLECTION. THE PATIENT IS SCHEDULED FOR CT SCAN OF THE SOFT TISSUES OF THE NECK. Soft Tissue Neck CT 07/15/18 11:01 IMPRESSION: 1. NO SIGNIFICANT FINDING IN THE SOFT TISSUES OF THE NECK. NO EVIDENCE OF SOFT TISSUE MASS, ABSCESS, OR ADENOPATHY. 2. BILATERAL PLEURAL EFFUSIONS WITH EXTENSIVE CONSOLIDATION IN THE LEFT UPPER LOBE. 3. FLUID THROUGHOUT THE PARANASAL SINUSES. THIS MAY BE EXACERBATED BY PRESENCE OF THE NASOGASTRIC TUBE. Abdomen Ultrasound 07/22/18 00:00 IMPRESSION: NORMAL RIGHT UPPER QUADRANT ULTRASOUND. Chest X-Ray 07/25/18 00:00 IMPRESSION: Resolved left basilar infiltrate. Minimal right basilar subseg mental atelectasis. Assessment and Plan - Diagnosis (1) Acute respiratory failure with hypoxia Is this a current diagnosis for this admission?: Yes Plan: Resolved. Successfully extubated on 07/19. (2) Collapse of left lung Is this a current diagnosis for this admission?: Yes Plan: S/P bronchoscopy on 07/20. Repeat CXR shows significant improvement in aeration of left lung white out. (3) Pneumonia Qualifiers: Pneumonia type: due to methicillin-sensitive Staphylococcus aureus (MSSA) Laterality: bilateral Lung location: lower lobe of lung Qualified Code(s): J15.211 - Pneumonia due to Methicillin susceptible Staphylococcus aureus Is this a current diagnosis for this admission?: Yes Plan: Noted sputum culture results. On Levaquin. (4) Angio-edema Qualifiers: Encounter type: initial encounter Qualified Code(s): T78.3XXA - Angioneurotic edema, initial encounter Is this a current diagnosis for this admission?: Yes Plan: Resolved. Secondary to lisinopril. (5) Hypokalemia Is this a current diagnosis for this admission?: Yes Plan: Resolved. (6) Hypomagnesemia Is this a current diagnosis for this admission?: Yes - Time Time Spent with patient: 15-24 minutes
[2018-07-27] MEDS: NORMAL SALINE 1000 ML 1,000 ML with POTASSIUM CHLORIDE 20 MEQ, MAGNESIUM SULFATE 8 MEQ,... IV SCH ×5 (17:50)
[2018-07-27] MEDS: ATORVASTATIN CALCIUM 20 MG TABLET PO SCH (21:21)
[2018-07-28] MEDS: LEVOFLOXACIN 500 MG/D5W RTU 500 MG/100 ML RTUPB IV SCH (09:53)
[2018-07-28] MEDS: NADOLOL 40 MG TABLET PO SCH ×2 (09:55→10:19)
[2018-07-28] MEDS: POTASSIUM CHLORIDE 10 MEQ CAPSULE.ER PO SCH ×2 (09:55→10:08)
[2018-07-28] MEDS: ALLOPURINOL 300 MG TABLET PO SCH ×2 (09:55→10:18)
[2018-07-28] MEDS: MAGNESIUM OXIDE 400 MG TABLET PO SCH ×2 (09:56→10:19)
[2018-07-28] MEDS: FUROSEMIDE 20 MG TABLET PO SCH (09:56)
[2018-07-28] MEDS: FAMOTIDINE 20 MG TABLET PO SCH ×2 (09:56→10:20)
[2018-07-28 15:51] VITALS: BP 113/70
--- NOTE | 2018-07-29 21:22 | PDOC DISCHARGE SUMMARY ---
General - Admit/Disc Date/PCP Admission Date/Primary Care Provider: 07/10/18 01:16 ISHAAN BARRETT MD Discharge Date: 07/28/18 - Discharge Diagnosis (1) Acute respiratory failure with hypoxia Is this a current diagnosis for this admission?: Yes (2) Collapse of left lung Is this a current diagnosis for this admission?: Yes (3) Pneumonia Is this a current diagnosis for this admission?: Yes (4) Angio-edema Is this a current diagnosis for this admission?: Yes (5) Hypokalemia Is this a current diagnosis for this admission?: Yes (6) Hypomagnesemia Is this a current diagnosis for this admission?: Yes - Additional Information Resuscitation Status: Full Code Discharge Activity: Activity As Tolerated Prescriptions: Levofloxacin [Levaquin 500 mg Tablet] 500 mg PO DAILY 3 Days #3 tablet Home Medications: Allopurinol [Zyloprim 300 mg Tablet] 300 mg PO DAILY 07/10/18 Atorvastatin Calcium [Lipitor 20 mg Tablet] 20 mg PO QHS 07/10/18 Calcium Citrate [Calcium Citrate 250 mg Tablet] 250 mg PO TID 07/10/18 Magnesium Oxide [Mag-Ox 400 mg Tablet] 400 mg PO DAILYP PRN 07/10/18 Nadolol [Corgard] 80 mg PO DAILY 07/10/18 Potassium Chloride [Klor-Con 10 Meq Capsule ER] 20 meq PO DAILY 07/10/18 Tramadol HCl [Ultram 50 mg Tablet] 50 mg PO Q6HP PRN 07/10/18 Levofloxacin [Levaquin 500 mg Tablet] 500 mg PO DAILY 3 Days #3 tablet 07/28/18 History of Present Illness History of Present Illness: Admitting hospitalist's H&P: ALEKSANDRA SALAZAR is a 57 year old male who presented to the emergency room with an acute history of swelling of his mouth and tongue. He admits that he had sudden onset of swelling of his lips and tongue beginning a short time prior to his arrival at the emergency room. In addition to the swelling he had noted some difficulty with swallowing. Initially he was having no itching or difficulty breathing but over a short time in the emergency room his symptoms increased exponentially to the point where he was having a good deal of difficulty breathing and required intubation and ventilation. He admited having several prior similar episodes that went away very quickly after taking Benadryl but this episode had not improved after taking Benadryl and he was concerned. He denies identification of any other aggravating or ameliorating factors for his angioedema. He does take lisinopril but was not aware that it might cause this problem. In the emergency room he was found to have rapidly progressing severe angioedema requiring intubation to maintain his airway. He was subsequently admitted to the ICU for further evaluation and treatment. Hospital Course Hospital Course: This is a 57 yr old male with HTN on lisinopril who presented with tongue and mouth swelling who decompensated and was intubated in the ER due to angioedema. He was admitted to the ICU and was initially on steroids. On 07/12, he developed a complete left lung whiteout possibly form a mucus plug. He underwent bronchoscopy on 07/13. His left lung collapse did resolve. He was successfully extubated on 07/19. He completed treatment with Levaquin for pneumonia. He had a few episodes of waxing and waning confusion on the floor and family was hesitant about taking him back home. He was having acute delirium which did resolve. He eventually returned to his baseline and will be discharged home. Physical Exam Vital Signs: Temp Pulse Resp BP Pulse Ox 97.8 F 78 20 113/70 98 07/28/18 15:50 07/28/18 15:50 07/28/18 15:50 07/28/18 15:50 07/28/18 15:50 Intake & Output 07/28/18 07/29/18 07/30/18 06:59 06:59 06:59 Intake Total 1827 1260 Output Total 1025 750 Balance 802 510 Weight 175 lb 14.862 oz General appearance: PRESENT: no acute distress, well-developed, well-nourished Head exam: PRESENT: atraumatic, normocephalic Eye exam: PRESENT: conjunctiva pink, EOMI, PERRLA. ABSENT: scleral icterus Ear exam: PRESENT: normal external ear exam Neck exam: ABSENT: carotid bruit, JVD, lymphadenopathy, thyromegaly Respiratory exam: PRESENT: clear to auscultation jhonathan. ABSENT: rales, rhonchi, wheezes Cardiovascular exam: PRESENT: RRR. ABSENT: diastolic murmur, rubs, systolic murmur Pulses: PRESENT: normal dorsalis pedis pul GI/Abdominal exam: PRESENT: normal bowel sounds, soft. ABSENT: distended, guarding, mass, organolmegaly, rebound, tenderness Rectal exam: PRESENT: deferred Neurological exam: PRESENT: alert, awake, oriented to person, oriented to place, oriented to time, oriented to situation, CN II-XII grossly intact. ABSENT: motor sensory deficit Results Laboratory Results: 07/26/18 03:40 07/27/18 05:20 07/09/18 07/09/18 07/10/18 22:55 22:55 05:04 Creatine Kinase 40 L 41 L CK-MB (CK-2) 0.52 Troponin I < 0.012 NT-Pro-B Natriuret Pep 07/10/18 07/10/18 07/10/18 05:04 11:08 11:08 Creatine Kinase 39 L CK-MB (CK-2) 0.52 0.39 Troponin I 0.015 < 0.012 NT-Pro-B Natriuret Pep 07/11/18 04:01 Creatine Kinase CK-MB (CK-2) Troponin I NT-Pro-B Natriuret Pep 621 Impressions: Head CT 07/09/18 23:33 IMPRESSION: Limited due to motion however no evidence for acute intracranial abnormality. Pansinusitis. TECHNICAL DOCUMENTATION: Quality ID # [id number]: Final reports with documentation of one or more dose reduction techniques (e.g., Automated exposure control, adjustment of the mA and/or kV according to patient size, use of iterative reconstruction technique) copyright 2011 [employer]- All Rights Reserved Thyroid Ultrasound 07/15/18 08:33 IMPRESSION: LIMITED STUDY. ECHOGENIC SOFT TISSUE, INDETERMINATE, WITH NO EVIDENCE OF ABSCESS OR FLUID COLLECTION. THE PATIENT IS SCHEDULED FOR CT SCAN OF THE SOFT TISSUES OF THE NECK. Soft Tissue Neck CT 07/15/18 11:01 IMPRESSION: 1. NO SIGNIFICANT FINDING IN THE SOFT TISSUES OF THE NECK. NO EVIDENCE OF SOFT TISSUE MASS, ABSCESS, OR ADENOPATHY. 2. BILATERAL PLEURAL EFFUSIONS WITH EXTENSIVE CONSOLIDATION IN THE LEFT UPPER LOBE. 3. FLUID THROUGHOUT THE PARANASAL SINUSES. THIS MAY BE EXACERBATED BY PRESENCE OF THE NASOGASTRIC TUBE. Abdomen Ultrasound 07/22/18 00:00 IMPRESSION: NORMAL RIGHT UPPER QUADRANT ULTRASOUND. Chest X-Ray 07/25/18 00:00 IMPRESSION: Resolved left basilar infiltrate. Minimal right basilar subsegmental atelectasis. Qualifiers - * PATIENT BEING DISCHARGED WITH ANY OF THE FOLLOWING DIAGNOSIS: No
--- NOTE | 2018-08-02 14:36 | PDOC PROGRESS REPORT ---
Subjective Progress Note for:: 07/12/18 Subjective:: intubated and sedated Reason For Visit: ACUTE ANGIOEDEMA WITH AIRWAY OBSTRUCTION Physical Exam Vital Signs: Temp Pulse Resp BP Pulse Ox 97.7 F 65 13 135/78 H 97 07/12/18 08:00 07/12/18 08:00 07/12/18 08:00 07/12/18 08:00 07/12/18 08:13 Intake & Output 07/11/18 07/12/18 07/13/18 06:59 06:59 06:59 Intake Total 1957 98 Output Total 1010 275 Balance 947 -177 Weight 95.3 kg General appearance: PRESENT: no acute distress, disheveled, well-developed, well-nourished. ABSENT: cooperative Head exam: PRESENT: atraumatic, normocephalic Eye exam: PRESENT: conjunctiva pale. ABSENT: EOMI, nystagmus, periorbital swelling Mouth exam: PRESENT: dry mucosa, neck supple, tongue midline, other - In place Neck exam: ABSENT: carotid bruit, full ROM, JVD, lymphadenopathy, meningismus, tenderness, thyromegaly, tracheal deviation, tracheostomy, other Respiratory exam: PRESENT: decreased breath sounds, prolonged expiratory phas, rales, rhonchi, unlabored. ABSENT: retraction, stridor, tachypnea Cardiovascular exam: PRESENT: RRR, +S1, +S2 Pulses: PRESENT: normal radial pulses GI/Abdominal exam: PRESENT: soft. ABSENT: tenderness Gentrourinary exam: PRESENT: indwelling catheter Extremities exam: PRESENT: pedal edema. ABSENT: calf tenderness, clubbing, joint swelling Musculoskeletal exam: ABSENT: ambulatory, deformity, dislocation Neurological exam: ABSENT: awake Skin exam: PRESENT: dry, warm Results Laboratory Results: 07/12/18 04:11 07/12/18 04:11 07/11/18 07/12/18 07/12/18 15:55 04:11 04:11 WBC 11.9 H RBC 2.90 L Hgb 10.6 L Hct 30.8 L MCV 106 H MCH 36.4 H MCHC 34.3 RDW 16.8 H Plt Count 98 L Seg Neutrophils % Not Reportable Lymphocytes % Not Reportable Monocytes % Not Reportable Eosinophils % Not Reportable Basophils % Not Reportable Absolute Neutrophils Not Reportable Absolute Lymphocytes Not Reportable Absolute Monocytes Not Reportable Absolute Eosinophils Not Reportable Absolute Basophils Not Reportable Carbonic Acid HCO3/H2CO3 Ratio ABG pH ABG pCO2 ABG pO2 ABG HCO3 ABG O2 Saturation ABG Base Excess FiO2 Sodium Potassium Chloride Carbon Dioxide Anion Gap BUN Creatinine Est GFR ( Amer) Est GFR (Non-Af Amer) Glucose Calcium Magnesium 1.9 Cancelled Total Bilirubin AST ALT Alkaline Phosphatase Total Protein Albumin 07/12/18 07/12/18 04:11 06:38 WBC RBC Hgb Hct MCV MCH MCHC RDW Plt Count Seg Neutrophils % Lymphocytes % Monocytes % Eosinophils % Basophils % Absolute Neutrophils Absolute Lymphocytes Absolute Monocytes Absolute Eosinophils Absolute Basophils Carbonic Acid 1.01 L HCO3/H2CO3 Ratio 20:1 ABG pH 7.42 ABG pCO2 33.4 L ABG pO2 109.4 H ABG HCO3 21.0 ABG O2 Saturation 98.1 H ABG Base Excess -2.8 FiO2 40% Sodium 140.2 Potassium 3.6 Chloride 112 H Carbon Dioxide 19 L Anion Gap 9 BUN 6 L Creatinine 0.56 Est GFR ( Amer) > 60 Est GFR (Non-Af Amer) > 60 Glucose 143 H Calcium 7.9 L Magnesium 1.8 Total Bilirubin 0.4 AST 23 ALT 24 Alkaline Phosphatase 58 Total Protein 5.5 L Albumin 2.9 L 07/09/18 07/09/18 07/10/18 22:55 22:55 05:04 Creatine Kinase 40 L 41 L CK-MB (CK-2) 0.52 Troponin I < 0.012 NT-Pro-B Natriuret Pep 07/10/18 07/10/18 07/10/18 05:04 11:08 11:08 Creatine Kinase 39 L CK-MB (CK-2) 0.52 0.39 Troponin I 0.015 < 0.012 NT-Pro-B Natriuret Pep 07/11/18 04:01 Creatine Kinase CK-MB (CK-2) Troponin I NT-Pro-B Natriuret Pep 621 Impressions: Head CT 07/09/18 23:33 IMPRESSION: Limited due to motion however no evidence for acute intracranial abnormality. Pansinusitis. TECHNICAL DOCUMENTATION: Quality ID # [id number]: Final reports with documentation of one or more dose reduction techniques (e.g., Automated exposure control, adjustment of the mA and/or kV according to patient size, use of iterative reconstruction technique) copyright 2011 [employer]- All Rights Reserved Assessment & Plan - Diagnosis (1) Bilateral pleural effusion Is this a current diagnosis for this admission?: Yes Plan: gentle diuresis (2) Acute respiratory failure Qualifiers: Respiratory failure complication: hypoxia Qualified Code(s): J96.01 - Acute respiratory failure with hypoxia Is this a current diagnosis for this admission?: Yes Plan: L Lung atelectaasis need FOB w lavage (3) Angio-edema Qualifiers: Encounter type: initial encounter Qualified Code(s): T78.3XXA - Angioneurotic edema, initial encounter Is this a current diagnosis for this admission?: Yes Plan: H1,H2 steroids (4) Hypertension Qualifiers: Hypertension type: essential hypertension Qualified Code(s): I10 - Essential (primary) hypertension Is this a current diagnosis for this admission?: Yes Plan: stable (5) Tobacco use disorder, moderate, dependence Is this a current diagnosis for this admission?: Yes Plan: stop smoking - Time Total Critical Time (Minutes): 45
--- NOTE | 2018-08-02 14:38 | Operative Report ---
Operative Report DATE OF SURGERY: 07/13/18 Operative Report: Patient intubated sedated with increasing atelectasis due to mucous plugging CT"T" size [employer] scope was used tracheal bronchial tree was explored there is no splaying of the richard ;thick, copious secretions was aspirated froms his left mainstem bronchus also was upper lobe and lower lobe.The aspiration was sent to the lab for appropriate cultures and studies patient tolerated procedure well postprocedure SaO2 was 97% PREOPERATIVE DIAGNOSIS: Left lung atelectasis POSTOPERATIVE DIAGNOSIS: Same OPERATION: Fiberoptic bronchoscopy with bronchoalveolar lavage SURGEON: DIMAS SAM ANESTHESIA: GA COMPLICATIONS: None ESTIMATED BLOOD LOSS: 0cc
--- NOTE | 2018-08-02 14:42 | Operative Report ---
Bedside Procedure - History of Present Illness History of Present Illness: Admitting hospitalist's H&P: ALEKSANDRA SALAZAR is a 57 year old male who presented to the emergency room with an acute history of swelling of his mouth and tongue. He admits that he had sudden onset of swelling of his lips and tongue beginning a short time prior to his arrival at the emergency room. In addition to the swelling he had noted some difficulty with swallowing. Initially he was having no itching or difficulty breathing but over a short time in the emergency room his symptoms increased exponentially to the point where he was having a good deal of difficulty breathing and required intubation and ventilation. He admited having several prior similar episodes that went away very quickly after taking Benadryl but this episode had not improved after taking Benadryl and he was concerned. He denies identification of any other aggravating or ameliorating factors for his angioedema. He does take lisinopril but was not aware that it might cause this problem. In the emergency room he was found to have rapidly progressing s evere angioedema requiring intubation to maintain his airway. He was subsequently admitted to the ICU for further evaluation and treatment. Indication for Procedure: Sepsis Date: 07/13/18 Surgeon: DIMAS SAM - Central Line Right Internal jugular Time completed: 11:24 Consent obtained: Yes Central line pre-insertion: Sterile PPE donned, Betadine prep applied, Chloraprep applied, Sterile drapes applied Central line lumen type: Triple Anesthetic type: 1% Lidocaine Ultrasound guided: Yes Line secured with sutures: Yes Central line post-insertion: Blood return from lumens, Biopatch applied, Sutured, Sterile dressing applied, Position confirmed w/ CXR Complications: No
--- NOTE | 2018-08-02 14:44 | PDOC PROGRESS REPORT ---
Subjective Progress Note for:: 07/14/18 Subjective:: intubated and sedated Reason For Visit: ACUTE ANGIOEDEMA WITH AIRWAY OBSTRUCTION Physical Exam Vital Signs: Temp Pulse Resp BP Pulse Ox 100.6 F H 76 22 H 135/83 H 99 07/14/18 08:00 07/14/18 08:00 07/14/18 08:00 07/14/18 08:00 07/14/18 08:00 Intake & Output 07/13/18 07/14/18 07/15/18 06:59 06:59 06:59 Intake Total 3362 2082 1035 Output Total 2019 1830 375 Balance 1342 252 660 Weight 92.4 kg 92.2 kg General appearance: PRESENT: no acute distress, disheveled. ABSENT: cooperative Head exam: PRESENT: atraumatic, normocephalic Eye exam: PRESENT: conjunctiva pale. ABSENT: EOMI, nystagmus, periorbital swelling Mouth exam: PRESENT: dry mucosa, neck supple, tongue midline, other - ET tube Neck exam: ABSENT: carotid bruit, full ROM, JVD, lymphadenopathy, meningismus, tenderness, thyromegaly, tracheal deviation, tracheostomy, other Respiratory exam: PRESENT: crackles, decreased breath sounds, prolonged expiratory phas, rhonchi, unlabored. ABSENT: rales, retraction, stridor Cardiovascular exam: PRESENT: RRR, +S1, +S2 Pulses: PRESENT: normal radial pulses GI/Abdominal exam: PRESENT: soft. ABSENT: tenderness Gentrourinary exam: PRESENT: indwelling catheter Extremities exam: PRESENT: pedal edema. ABSENT: calf tenderness, clubbing, joint swelling Musculoskeletal exam: ABSENT: ambulatory, deformity, dislocation Neurological exam: ABSENT: awake Skin exam: PRESENT: dry, warm Results Laboratory Results: 07/13/18 04:50 07/14/18 04:52 07/13/18 07/13/18 07/14/18 10:45 12:16 04:52 Carbonic Acid HCO3/H2CO3 Ratio ABG pH ABG pCO2 ABG pO2 ABG HCO3 ABG O2 Saturation ABG Base Excess FiO2 Sodium 136.0 L Potassium 3.2 L Chloride 106 Carbon Dioxide 22 Anion Gap 8 BUN 6 L Creatinine 0.56 Est GFR ( Amer) > 60 Est GFR (Non-Af Amer) > 60 Glucose 101 Lactic Acid 1.6 Calcium 7.6 L Magnesium 1.4 L Fluid Type BRONCHIAL WASH Fluid Source LUNG Fluid Color RED Fluid Appearance CLOUDY Fluid Viscosity LIQUID Fluid WBC 4050 Fluid RBC 14196 07/14/18 06:03 Carbonic Acid 0.89 L HCO3/H2CO3 Ratio 24:1 ABG pH 7.49 H ABG pCO2 29.5 L ABG pO2 56.3 L ABG HCO3 21.8 ABG O2 Saturation 91.8 L ABG Base Excess -0.7 FiO2 40% Sodium Potassium Chloride Carbon Dioxide Anion Gap BUN Creatinine Est GFR ( Amer) Est GFR (Non-Af Amer) Glucose Lactic Acid Calcium Magnesium Fluid Type Fluid Source Fluid Color Fluid Appearance Fluid Viscosity Fluid WBC Fluid RBC 07/09/18 07/09/18 07/10/18 22:55 22:55 05:04 Creatine Kinase 40 L 41 L CK-MB (CK-2) 0.52 Troponin I < 0.012 NT-Pro-B Natriuret Pep 07/10/18 07/10/18 07/10/18 05:04 11:08 11:08 Creatine Kinase 39 L CK-MB (CK-2) 0.52 0.39 Troponin I 0.015 < 0.012 NT-Pro-B Natriuret Pep 07/11/18 04:01 Creatine Kinase CK-MB (CK-2) Troponin I NT-Pro-B Natriuret Pep 621 Impressions: Head CT 07/09/18 23:33 IMPRESSION: Limited due to motion however no evidence for acute intracranial abnormality. Pansinusitis. TECHNICAL DOCUMENTATION: Quality ID # [id number]: Final reports with documentation of one or more dose reduction techniques (e.g., Automated exposure control, adjustment of the mA and/or kV according to patient size, use of iterative reconstruction technique) copyright 2011 [employer]- All Rights Reserved Assessment & Plan - Diagnosis (1) Bilateral pleural effusion Is this a current diagnosis for this admission?: Yes Plan: gentle diuresis (2) Acute respiratory failure Qualifiers: Respiratory failure complication: hypoxia Qualified Code(s): J96.01 - Acute respiratory failure with hypoxia Is this a current diagnosis for this admission?: Yes Plan: L Lung atelectaasis need FOB w lavage (3) Angio-edema Qualifiers: Encounter type: initial encounter Qualified Code(s): T78.3XXA - Angione urotic edema, initial encounter Is this a current diagnosis for this admission?: Yes Plan: H1,H2 steroids (4) Hypertension Qualifiers: Hypertension type: essential hypertension Qualified Code(s): I10 - Essential (primary) hypertension Is this a current diagnosis for this admission?: Yes Plan: stable (5) Tobacco use disorder, moderate, dependence Is this a current diagnosis for this admission?: Yes Plan: stop smoking - Time Total Critical Time (Minutes): 45
--- NOTE | 2018-08-02 14:47 | PDOC PROGRESS REPORT ---
Subjective Progress Note for:: 07/15/18 Subjective:: intubated and sedated Reason For Visit: ACUTE ANGIOEDEMA WITH AIRWAY OBSTRUCTION Physical Exam Vital Signs: Temp Pulse Resp BP Pulse Ox 96.1 F L 66 17 112/63 95 07/15/18 07:56 07/15/18 08:14 07/15/18 08:14 07/15/18 07:56 07/15/18 08:14 Intake & Output 07/14/18 07/15/18 07/16/18 06:59 06:59 06:59 Intake Total 2432 5054 100 Output Total 1830 3510 400 Balance 602 1544 -300 Weight 92.2 kg 93.1 kg General appearance: PRESENT: no acute distress, disheveled. ABSENT: cooperative Head exam: PRESENT: atraumatic, normocephalic Eye exam: PRESENT: conjunctiva pale Mouth exam: PRESENT: dry mucosa, neck supple, tongue midline, other - ET tube in place Neck exam: ABSENT: carotid bruit, full ROM, JVD, lymphadenopathy, meningismus, tenderness, thyromegaly, tracheal deviation, tracheostomy, other Respiratory exam: PRESENT: crackles, decreased breath sounds, prolonged expiratory phas, rhonchi, unlabored. ABSENT: retraction, stridor Cardiovascular exam: PRESENT: RRR, +S1, +S2 Pulses: PRESENT: normal radial pulses GI/Abdominal exam: PRESENT: soft. ABSENT: tenderness Gentrourinary exam: PRESENT: indwelling catheter Extremities exam: ABSENT: calf tenderness, clubbing, joint swelling Musculoskeletal exam: ABSENT: ambulatory, deformity, dislocation Neurological exam: ABSENT: awake Skin exam: PRESENT: dry, warm Results Laboratory Results: 07/15/18 03:56 07/15/18 03:56 07/14/18 07/15/18 07/15/18 17:10 03:56 03:56 WBC RBC Hgb Hct MCV MCH MCHC RDW Plt Count Seg Neutrophils % Lymphocytes % Monocytes % Eosinophils % Basophils % Absolute Neutrophils Absolute Lymphocytes Absolute Monocytes Absolute Eosinophils Absolute Basophils Carbonic Acid 0.96 L HCO3/H2CO3 Ratio 21:1 ABG pH 7.42 ABG pCO2 31.9 L ABG pO2 81.1 ABG HCO3 20.4 ABG O2 Saturation 96.3 ABG Base Excess -3.2 FiO2 40% Sodium 134.5 L 133.3 L Potassium 3.7 4.0 Chloride 106 110 H Carbon Dioxide 20 L 19 L Anion Gap 9 6 BUN 6 L 9 Creatinine 0.58 0.58 Est GFR ( Amer) > 60 > 60 Est GFR (Non-Af Amer) > 60 > 60 Glucose 121 H 232 H Calcium 7.7 L 7.3 L Magnesium 2.0 2.1 07/15/18 03:56 WBC 16.4 H RBC 2.75 L Hgb 9.9 L Hct 28.9 L MCV 105 H MCH 36.0 H MCHC 34.1 RDW 17.1 H Plt Count 74 L Seg Neutrophils % Not Reportable Lymphocytes % Not Reportable Monocytes % Not Reportable Eosinophils % Not Reportable Basophils % Not Reportable Absolute Neutrophils Not Reportable Absolute Lymphocytes Not Reportable Absolute Monocytes Not Reportable Absolute Eosinophils Not Reportable Absolute Basophils Not Reportable Carbonic Acid HCO3/H2CO3 Ratio ABG pH ABG pCO2 ABG pO2 ABG HCO3 ABG O2 Saturation ABG Base Excess FiO2 Sodium Potassium Chloride Carbon Dioxide Anion Gap BUN Creatinine Est GFR ( Amer) Est GFR (Non-Af Amer) Glucose Calcium Magnesium 07/13/18 10:45 Bronchial Washings Gram Stain - Final 07/09/18 07/09/18 07/10/18 22:55 22:55 05:04 Creatine Kinase 40 L 41 L CK-MB (CK-2) 0.52 Troponin I < 0.012 NT-Pro-B Natriuret Pep 07/10/18 07/10/18 07/10/18 05:04 11:08 11:08 Creatine Kinase 39 L CK-MB (CK-2) 0.52 0.39 Troponin I 0.015 < 0.012 NT-Pro-B Natriuret Pep 07/11/18 04:01 Creatine Kinase CK-MB (CK-2) Troponin I NT-Pro-B Natriuret Pep 621 Impressions: Head CT 07/09/18 23:33 IMPRESSION: Limited due to motion however no evidence for acute intracranial abnormality. Pansinusitis. TECHNICAL DOCUMENTATION: Quality ID # [id number]: Final reports with documentation of one or more dose reduction techniques (e.g., Automated exposure control, adjustment of the mA and/or kV according to patient size, use of iterative reconstruction technique) copyright 2011 [employer]- All Rights Reserved Chest X-Ray 07/15/18 06:00 IMPRESSION: SLIGHT IMPROVED AERATION IN THE LEFT LUNG. Assessment & Plan - Diagnosis (1) Bilateral pleural effusion Is this a current diagnosis for this admission?: Yes Plan: gentle diuresis (2) Acute respiratory failure Qualifiers: Respiratory failure complication: hypoxia Qualified Code(s): J96.01 - Acute respiratory failure with hypoxia Is this a current diagnosis for this admission?: Yes Plan: L Lung atelectaasis need FOB w lavage (3) Angio-edema Qualifiers: Encounter type: initial encounter Qualified Code(s): T78.3XXA - Angioneurotic edema, initial encounter Is this a current diagnosis for this admission?: Yes Plan: H1,H2 steroids (4) Hypertension Qualifiers: Hypertension type: essential hypertension Qualified Code(s): I10 - Essential (primary) hypertension Is this a current diagnosis for this admission?: Yes Plan: stable (5) Tobacco use disorder, moderate, dependence Is this a current diagnosis for this admission?: Yes Plan: stop smoking - Time Total Critical Time (Minutes): 45
--- NOTE | 2018-08-02 14:50 | PDOC PROGRESS REPORT ---
Subjective Progress Note for:: 07/16/18 Subjective:: intubated and sedated Reason For Visit: ACUTE ANGIOEDEMA WITH AIRWAY OBSTRUCTION Physical Exam Vital Signs: Temp Pulse Resp BP Pulse Ox 96.3 F L 58 L 20 143/75 H 97 07/16/18 08:00 07/16/18 08:12 07/16/18 08:12 07/16/18 08:00 07/16/18 08:12 Intake & Output 07/15/18 07/16/18 07/17/18 06:59 06:59 06:59 Intake Total 4830 3623 Output Total 3510 3285 200 Balance 1380 338 -200 Weight 93.1 kg 94.6 kg General appearance: PRESENT: no acute distress, disheveled Head exam: PRESENT: atraumatic, normocephalic Eye exam: PRESENT: conjunctiva pale. ABSENT: EOMI, nystagmus, periorbital swelling Ear exam: PRESENT: normal external ear exam Mouth exam: PRESENT: dry mucosa, neck supple, tongue midline Neck exam: ABSENT: carotid bruit, full ROM, JVD, lymphadenopathy, meningismus, tenderness, thyromegaly, tracheal deviation, tracheostomy, other Respiratory exam: PRESENT: decreased breath sounds, prolonged expiratory phas, rhonchi, unlabored. ABSENT: rales, retraction, stridor Cardiovascular exam: PRESENT: RRR, +S1, +S2 Pulses: PRESENT: normal radial pulses GI/Abdominal exam: PRESENT: soft. ABSENT: tenderness Gentrourinary exam: PRESENT: indwelling catheter Extremities exam: PRESENT: pedal edema. ABSENT: calf tenderness, clubbing, j oint swelling Musculoskeletal exam: ABSENT: ambulatory, deformity, dislocation Neurological exam: ABSENT: alert, awake Skin exam: PRESENT: dry, warm Results Laboratory Results: 07/16/18 04:10 07/16/18 04:10 07/16/18 07/16/18 07/16/18 04:09 04:10 04:10 WBC 13.6 H RBC 2.83 L Hgb 10.1 L Hct 29.7 L MCV 105 H MCH 35.7 H MCHC 34.0 RDW 17.2 H Plt Count 99 L Seg Neutrophils % Not Reportable Lymphocytes % Not Reportable Monocytes % Not Reportable Eosinophils % Not Reportable Basophils % Not Reportable Absolute Neutrophils Not Reportable Absolute Lymphocytes Not Reportable Absolute Monocytes Not Reportable Absolute Eosinophils Not Reportable Absolute Basophils Not Reportable Carbonic Acid 1.04 L HCO3/H2CO3 Ratio 19:1 ABG pH 7.40 ABG pCO2 34.5 L ABG pO2 83.3 ABG HCO3 20.7 ABG O2 Saturation 96.3 ABG Base Excess -3.5 FiO2 50% Sodium 138.8 Potassium 4.4 Chloride 112 H Carbon Dioxide 19 L Anion Gap 8 BUN 12 Creatinine 0.76 Est GFR ( Amer) > 60 Est GFR (Non-Af Amer) > 60 Glucose 148 H Calcium 7.8 L Magnesium 2.3 07/13/18 10:45 Bronchial Washings AFB Smear Concentration - Final 07/13/18 10:45 Bronchial Washings Acid Fast Bacilli Smear - Final 07/13/18 10:45 Bronchial Washings Fungal Smear - Final 07/13/18 10:45 Bronchial Washings Fungal Smear - Final 07/13/18 10:45 Bronchial Washings Gram Stain - Final 07/13/18 10:45 Bronchial Washings Bronchial Washings Culture - Final Staphylococcus Aureus Klebsiella Pneumoniae Normal Jasmin Absent 07/13/18 11:30 Catheterized Urine Urine Culture - Final NO GROWTH 2 DAYS 07/09/18 07/09/18 07/10/18 22:55 22:55 05:04 Creatine Kinase 40 L 41 L CK-MB (CK-2) 0.52 Troponin I < 0.012 NT-Pro-B Natriuret Pep 07/10/18 07/10/18 07/10/18 05:04 11:08 11:08 Creatine Kinase 39 L CK-MB (CK-2) 0.52 0.39 Troponin I 0.015 < 0.012 NT-Pro-B Natriuret Pep 07/11/18 04:01 Creatine Kinase CK-MB (CK-2) Troponin I NT-Pro-B Natriuret Pep 621 Impressions: Head CT 07/09/18 23:33 IMPRESSION: Limited due to motion however no evidence for acute intracranial abnormality. Pansinusitis. TECHNICAL DOCUMENTATION: Quality ID # [id number]: Final reports with documentation of one or more dose reduction techniques (e.g., Automated exposure control, adjustment of the mA and/or kV according to patient size, use of iterative reconstruction technique) copyright 2011 [employer]- All Rights Reserved Thyroid Ultrasound 07/15/18 08:33 IMPRESSION: LIMITED STUDY. ECHOGENIC SOFT TISSUE, INDETERMINATE, WITH NO EVIDENCE OF ABSCESS OR FLUID COLLECTION. THE PATIENT IS SCHEDULED FOR CT SCAN OF THE SOFT TISSUES OF THE NECK. Soft Tissue Neck CT 07/15/18 11:01 IMPRESSION: 1. NO SIGNIFICANT FINDING IN THE SOFT TISSUES OF THE NECK. NO EVIDENCE OF SOFT TISSUE MASS, ABSCESS, OR ADENOPATHY. 2. BILATERAL PLEURAL EFFUSIONS WITH EXTENSIVE CONSOLIDATION IN THE LEFT UPPER LOBE. 3. FLUID THROUGHOUT THE PARANASAL SINUSES. THIS MAY BE EXACERBATED BY PRESENCE OF THE NASOGASTRIC TUBE. Chest X-Ray 07/16/18 06:00 IMPRESSION: Slightly improved aeration of the left lung. Assessment & Plan - Diagnosis (1) Bilateral pleural effusion Is this a current diagnosis for this admission?: Yes Plan: gentle diuresis (2) Acute respiratory failure Qualifiers: Respiratory failure complication: hypoxia Qualified Code(s): J96.01 - Acute respiratory failure with hypoxia Is this a current diagnosis for this admission?: Yes Plan: L Lung atelectaasis need FOB w lavage (3) Angio-edema Qualifiers: Encounter type: initial encounter Qualified Code(s): T78.3XXA - Angioneurotic edema, initial encounter Is this a current diagnosis for this admission?: Yes Plan: H1,H2 steroids (4) Hypertension Qualifiers: Hypertension type: essential hypertension Qualified Code(s): I10 - Essential (primary) hypertension Is this a current diagnosis for this admission?: Yes Plan: stable (5) Tobacco use disorder, moderate, dependence Is this a current diagnosis for this admission?: Yes Plan: stop smoking - Time Total Critical Time (Minutes): 45
--- NOTE | 2018-08-02 14:53 | PDOC PROGRESS REPORT ---
Subjective Progress Note for:: 07/18/18 Subjective:: intubated and sedated Reason For Visit: ACUTE ANGIOEDEMA WITH AIRWAY OBSTRUCTION Physical Exam Vital Signs: Temp Pulse Resp BP Pulse Ox 96.3 F L 58 L 20 143/75 H 97 07/16/18 08:00 07/16/18 08:12 07/16/18 08:12 07/16/18 08:00 07/16/18 08:12 Intake & Output 07/15/18 07/16/18 07/17/18 06:59 06:59 06:59 Intake Total 4800 3623 Output Total 3510 3285 200 Balance 1380 338 -200 Weight 93.1 kg 94.6 kg General appearance: PRESENT: no acute distress, disheveled. ABSENT: cooperative Head exam: PRESENT: atraumatic, normocephalic Eye exam: PRESENT: conjunctiva pale. ABSENT: EOMI, nystagmus, periorbital swelling Mouth exam: PRESENT: dry mucosa, neck supple, tongue midline, other - ET tube Neck exam: ABSENT: carotid bruit, full ROM, JVD, lymphadenopathy, meningismus, tenderness, thyromegaly, tracheal deviation, tracheostomy, other Respiratory exam: PRESENT: crackles, decreased breath sounds, prolonged expiratory phas, rhonchi, unlabored. ABSENT: rales, retraction, stridor Cardiovascular exam: PRESENT: RRR, +S1, +S2 Pulses: PRESENT: normal radial pulses GI/Abdominal exam: PRESENT: soft. ABSENT: tenderness Gentrourinary exam: PRESENT: indwelling catheter Extremities exam: PRESENT: pedal edema. ABSENT: calf tenderness, clubbing, joint swelling Musculoskeletal exam: ABSENT: ambulatory, deformity, dislocation Neurological exam: ABSENT: alert, awake Skin exam: PRESENT: dry, warm Results Laboratory Results: 07/16/18 04:10 07/16/18 04:10 07/16/18 07/16/18 07/16/18 04:09 04:10 04:10 WBC 13.6 H RBC 2.83 L Hgb 10.1 L Hct 29.7 L MCV 105 H MCH 35.7 H MCHC 34.0 RDW 17.2 H Plt Count 99 L Seg Neutrophils % Not Reportable Lymphocytes % Not Reportable Monocytes % Not Reportable Eosinophils % Not Reportable Basophils % Not Reportable Absolute Neutrophils Not Reportable Absolute Lymphocytes Not Reportable Absolute Monocytes Not Reportable Absolute Eosinophils Not Reportable Absolute Basophils Not Reportable Carbonic Acid 1.04 L HCO3/H2CO3 Ratio 19:1 ABG pH 7.40 ABG pCO2 34.5 L ABG pO2 83.3 ABG HCO3 20.7 ABG O2 Saturation 96.3 ABG Base Excess -3.5 FiO2 50% Sodium 138.8 Potassium 4.4 Chloride 112 H Carbon Dioxide 19 L Anion Gap 8 BUN 12 Creatinine 0.76 Est GFR ( Amer) > 60 Est GFR (Non-Af Amer) > 60 Glucose 148 H Calcium 7.8 L Magnesium 2.3 07/13/18 10:45 Bronchial Washings AFB Smear Concentration - Final 07/13/18 10:45 Bronchial Washings Acid Fast Bacilli Smear - Final 07/13/18 10:45 Bronchial Washings Fungal Smear - Final 07/13/18 10:45 Bronchial Washings Fungal Smear - Final 07/13/18 10:45 Bronchial Washings Gram Stain - Final 07/13/18 10:45 Bronchial Washings Bronchial Washings Culture - Final Staphylococcus Aureus Klebsiella Pneumoniae Normal Jasmin Absent 07/13/18 11:30 Catheterized Urine Urine Culture - Final NO GROWTH 2 DAYS 07/09/18 07/09/18 07/10/18 22:55 22:55 05:04 Creatine Kinase 40 L 41 L CK-MB (CK-2) 0.52 Troponin I < 0.012 NT-Pro-B Natriuret Pep 07/10/18 07/10/18 07/10/18 05:04 11:08 11:08 Creatine Kinase 39 L CK-MB (CK-2) 0.52 0.39 Troponin I 0.015 < 0.012 NT-Pro-B Natriuret Pep 07/11/18 04:01 Creatine Kinase CK-MB (CK-2) Troponin I NT-Pro-B Natriuret Pep 621 Impressions: Head CT 07/09/18 23:33 IMPRESSION: Limited due to motion however no evidence for acute intracranial abnormality. Pansinusitis. TECHNICAL DOCUMENTATION: Quality ID # [id number]: Final reports with documentation of one or more dose reduction techniques (e.g., Automated exposure control, adjustment of the mA and/or kV according to patient size, use of iterative reconstruction technique) copyright 2011 [employer]- All Rights Reserved Thyroid Ultrasound 07/15/18 08:33 IMPRESSION: LIMITED STUDY. ECHOGENIC SOFT TISSUE, INDETERMINATE, WITH NO EVIDENCE OF ABSCESS OR FLUID COLLECTION. THE PATIENT IS SCHEDULED FOR CT SCAN OF THE SOFT TISSUES OF THE NECK. Soft Tissue Neck CT 07/15/18 11:01 IMPRESSION: 1. NO SIGNIFICANT FINDING IN THE SOFT TISSUES OF THE NECK. NO EVIDENCE OF SOFT TISSUE MASS, ABSCESS, OR ADENOPATHY. 2. BILATERAL PLEURAL EFFUSIONS WITH EXTENSIVE CONSOLIDATION IN THE LEFT UPPER LOBE. 3. FLUID THROUGHOUT THE PARANASAL SINUSES. THIS MAY BE EXACERBATED BY PRESENCE OF THE NASOGASTRIC TUBE. Chest X-Ray 07/16/18 06:00 IMPRESSION: Slightly improved aeration of the left lung. Assessment & Plan - Diagnosis (1) Bilateral pleural effusion Is this a current diagnosis for this admission?: Yes Plan: gentle diuresis (2) Acute respiratory failure Qualifiers: Respiratory failure complication: hypoxia Qualified Code(s): J96.01 - Acute respiratory failure with hypoxia Is this a current diagnosis for this admission?: Yes Plan: L Lung atelectaasis need FOB w lavage (3) Angio-edema Qualifiers: Encounter type: initial encounter Qualified Code(s): T78.3XXA - Angioneurotic edema, initial encounter Is this a current diagnosis for this admission?: Yes Plan: H1,H2 steroids (4) Hypertension Qualifiers: Hypertension type: essential hypertension Qualified Code(s): I10 - Essenti al (primary) hypertension Is this a current diagnosis for this admission?: Yes Plan: stable (5) Tobacco use disorder, moderate, dependence Is this a current diagnosis for this admission?: Yes Plan: stop smoking - Time Total Critical Time (Minutes): 45
--- NOTE | 2018-08-02 14:56 | PDOC PROGRESS REPORT ---
Subjective Progress Note for:: 07/17/18 Subjective:: intubated and sedated Reason For Visit: ACUTE ANGIOEDEMA WITH AIRWAY OBSTRUCTION Physical Exam Vital Signs: Temp Pulse Resp BP Pulse Ox 97.7 F 60 14 156/83 H 97 07/17/18 07:48 07/17/18 08:00 07/17/18 08:00 07/17/18 07:48 07/17/18 08:00 Intake & Output 07/16/18 07/17/18 07/18/18 06:59 06:59 06:59 Intake Total 3623 3111 92 Output Total 3285 2620 150 Balance 338 491 -58 Weight 94.6 kg 94.4 kg General appearance: PRESENT: no acute distress, disheveled. ABSENT: cooperative Head exam: PRESENT: atraumatic, normocephalic Eye exam: PRESENT: conjunctiva pale. ABSENT: nystagmus, periorbital swelling Mouth exam: PRESENT: dry mucosa, neck supple, tongue midline, other - 2 Neck exam: ABSENT: carotid bruit, full ROM, JVD, lymphadenopathy, meningismus, tenderness, thyromegaly, tracheal deviation, tracheostomy, other Respiratory exam: PRESENT: crackles, decreased breath sounds, prolonged expiratory phas, rhonchi, unlabored Cardiovascular exam: PRESENT: RRR, +S1, +S2 Pulses: PRESENT: normal radial pulses GI/Abdominal exam: PRESENT: soft. ABSENT: tenderness Gentrourinary exam: PRESENT: indwelling catheter Extremities exam: PRESENT: pedal edema. ABSENT: calf tenderness, clubbing, joint swelling Musculoskeletal exam: ABSENT: ambulatory, deformity, dislocation Neurological exam: ABSENT: awake Skin exam: PRESENT: dry, warm Results Laboratory Results: 07/17/18 04:39 07/17/18 04:39 07/17/18 07/17/18 07/17/18 04:26 04:39 04:39 WBC 14.8 H RBC 3.09 L Hgb 11.0 L Hct 32.4 L MCV 105 H MCH 35.5 H MCHC 33.8 RDW 17.5 H Plt Count 120 L Seg Neutrophils % Not Reportable Lymphocytes % Not Reportable Monocytes % Not Reportable Eosinophils % Not Reportable Basophils % Not Reportable Absolute Neutrophils Not Reportable Absolute Lymphocytes Not Reportable Absolute Monocytes Not Reportable Absolute Eosinophils Not Reportable Absolute Basophils Not Reportable Carbonic Acid 0.86 L HCO3/H2CO3 Ratio 21:1 ABG pH 7.43 ABG pCO2 28.6 L ABG pO2 72.7 L ABG HCO3 18.4 L ABG O2 Saturation 95.2 ABG Base Excess -4.8 FiO2 21% Sodium 138.2 Potassium 4.2 Chloride 110 H Carbon Dioxide 19 L Anion Gap 9 BUN 14 Creatinine 0.76 Est GFR ( Amer) > 60 Est GFR (Non-Af Amer) > 60 Glucose 116 H Calcium 8.3 L Magnesium 2.2 07/09/18 07/09/18 07/10/18 22:55 22:55 05:04 Creatine Kinase 40 L 41 L CK-MB (CK-2) 0.52 Troponin I < 0.012 NT-Pro-B Natriuret Pep 07/10/18 07/10/18 07/10/18 05:04 11:08 11:08 Creatine Kinase 39 L CK-MB (CK-2) 0.52 0.39 Troponin I 0.015 < 0.012 NT-Pro-B Natriuret Pep 07/11/18 04:01 Creatine Kinase CK-MB (CK-2) Troponin I NT-Pro-B Natriuret Pep 621 Impressions: Head CT 07/09/18 23:33 IMPRESSION: Limited due to motion however no evidence for acute intracranial abnormality. Pansinusitis. TECHNICAL DOCUMENTATION: Quality ID # [id number]: Final reports with documentation of one or more dose reduction techniques (e.g., Automated exposure control, adjustment of the mA and/or kV according to patient size, use of iterative reconstruction technique) copyright 2011 [employer]- All Rights Reserved Thyroid Ultrasound 07/15/18 08:33 IMPRESSION: LIMITED STUDY. ECHOGENIC SOFT TISSUE, INDETERMINATE, WITH NO EVIDENCE OF ABSCESS OR FLUID COLLECTION. THE PATIENT IS SCHEDULED FOR CT SCAN OF THE SOFT TISSUES OF THE NECK. Soft Tissue Neck CT 07/15/18 11:01 IMPRESSION: 1. NO SIGNIFICANT FINDING IN THE SOFT TISSUES OF THE NECK. NO EVIDENCE OF SOFT TISSUE MASS, ABSCESS, OR ADENOPATHY. 2. BILATERAL PLEURAL EFFUSIONS WITH EXTENSIVE CONSOLIDATION IN THE LEFT UPPER LOBE. 3. FLUID THROUGHOUT THE PARANASAL SINUSES. THIS MAY BE EXACERBATED BY PRESENCE OF THE NASOGASTRIC TUBE. Chest X-Ray 07/17/18 06:00 IMPRESSION: No significant change. Assessment & Plan - Diagnosis (1) Bilateral pleural effusion Is this a current diagnosis for this admission?: Yes Plan: gentle diuresis (2) Acute respiratory failure Qualifiers: Respiratory failure complication: hypoxia Qualified Code(s): J96.01 - Acute respiratory failure with hypoxia Is this a current diagnosis for this admission?: Yes Plan: Improving (3) Angio-edema Qualifiers: Encounter type: initial encounter Qualified Code(s): T78.3XXA - Angioneurotic edema, initial encounter Is this a current diagnosis for this admission?: Yes Plan: Continues to improve (4) Hypertension Qualifiers: Hypertension type: essential hypertension Qualified Code(s): I10 - Essential (primary) hypertension Is this a current diagnosis for this admission?: Yes Plan: stable (5) Tobacco use disorder, moderate, dependence Is this a current diagnosis for this admission?: Yes Plan: stop smoking - Time Total Critical Time (Minutes): 40
--- NOTE | 2018-08-02 14:58 | PDOC PROGRESS REPORT ---
Subjective Progress Note for:: 07/19/18 Subjective:: intubated and sedated Reason For Visit: ACUTE ANGIOEDEMA WITH AIRWAY OBSTRUCTION Physical Exam Vital Signs: Temp Pulse Resp BP Pulse Ox 99.3 F 75 18 138/123 H 95 07/19/18 08:00 07/19/18 08:00 07/19/18 08:00 07/19/18 08:00 07/19/18 08:00 Intake & Output 07/18/18 07/19/18 07/20/18 06:59 06:59 06:59 Intake Total 2894 2517 43 Output Total 5945 5455 300 Balance -3051 -2938 -257 Weight 90.8 kg 86.8 kg General appearance: PRESENT: no acute distress, disheveled Head exam: PRESENT: atraumatic, normocephalic Eye exam: PRESENT: conjunctiva pale. ABSENT: nystagmus, periorbital swelling Mouth exam: PRESENT: dry mucosa, neck supple, tongue midline, other Neck exam: ABSENT: carotid bruit, full ROM, JVD, lymphadenopathy, meningismus, tenderness, thyromegaly, tracheal deviation, tracheostomy, other Respiratory exam: PRESENT: crackles, decreased breath sounds, prolonged expiratory phas, rhonchi, unlabored Cardiovascular exam: PRESENT: RRR, +S2 Pulses: PRESENT: normal radial pulses GI/Abdominal exam: PRESENT: soft. ABSENT: tenderness Gentrourinary exam: PRESENT: indwelling catheter Extremities exam: PRESENT: pedal edema. ABSENT: calf tenderness, clubbing, joint swelling Musculoskeletal exam: ABSENT: ambulatory, deformity, dislocation Neurological exam: ABSENT: awake Skin exam: PRESENT: dry, warm Results Laboratory Results: 07/18/18 04:48 07/19/18 05:15 07/19/18 07/19/18 05:15 05:15 Carbonic Acid 1.05 HCO3/H2CO3 Ratio 22:1 ABG pH 7.44 ABG pCO2 34.8 L ABG pO2 67.4 L ABG HCO3 23.3 ABG O2 Saturation 94.3 ABG Base Excess -0.4 FiO2 21% Sodium 138.9 Potassium 3.5 L Chloride 105 Carbon Dioxide 25 Anion Gap 9 BUN 11 Creatinine 0.72 Est GFR ( Amer) > 60 Est GFR (Non-Af Amer) > 60 Glucose 125 H Calcium 8.6 Magnesium 1.6 07/13/18 12:16 Blood Blood Culture - Final NO GROWTH IN 5 DAYS 07/13/18 10:07 Blood Blood Culture - Final NO GROWTH IN 5 DAYS 07/16/18 12:22 Sputum Gram Stain - Final 07/16/18 12:22 Sputum Sputum Culture - Final Staphylococcus Aureus Klebsiella Pneumoniae Normal Jasmin Absent 07/09/18 07/09/18 07/10/18 22:55 22:55 05:04 Creatine Kinase 40 L 41 L CK-MB (CK-2) 0.52 Troponin I < 0.012 NT-Pro-B Natriuret Pep 07/10/18 07/10/18 07/10/18 05:04 11:08 11:08 Creatine Kinase 39 L CK-MB (CK-2) 0.52 0.39 Troponin I 0.015 < 0.012 NT-Pro-B Natriuret Pep 07/11/18 04:01 Creatine Kinase CK-MB (CK-2) Troponin I NT-Pro-B Natriuret Pep 621 Impressions: Head CT 07/09/18 23:33 IMPRESSION: Limited due to motion however no evidence for acute intracranial abnormality. Pansinusitis. TECHNICAL DOCUMENTATION: Quality ID # [id number]: Final reports with documentation of one or more dose reduction techniques (e.g., Automated exposure control, adjustment of the mA and/or kV according to patient size, use of iterative reconstruction technique) copyright 2011 [employer]- All Rights Reserved Thyroid Ultrasound 07/15/18 08:33 IMPRESSION: LIMITED STUDY. ECHOGENIC SOFT TISSUE, INDETERMINATE, WITH NO EVIDENCE OF ABSCESS OR FLUID COLLECTION. THE PATIENT IS SCHEDULED FOR CT SCAN OF THE SOFT TISSUES OF THE NECK. Soft Tissue Neck CT 07/15/18 11:01 IMPRESSION: 1. NO SIGNIFICANT FINDING IN THE SOFT TISSUES OF THE NECK. NO EVIDENCE OF SOFT TISSUE MASS, ABSCESS, OR ADENOPATHY. 2. BILATERAL PLEURAL EFFUSIONS WITH EXTENSIVE CONSOLIDATION IN THE LEFT UPPER LOBE. 3. FLUID THROUGHOUT THE PARANASAL SINUSES. THIS MAY BE EXACERBATED BY PRESENCE OF THE NASOGASTRIC TUBE. Chest X-Ray 07/18/18 00:00 IMPRESSION: Left basilar pleural effusion and/or atelectasis and/or infiltrate. Right basilar infiltrate/atelectasis has improved somewhat, as compared with the prior chest x-ray. The side-port of the NG tube is in the region of the gastroesophageal junction. copyright 2011 [employer]- All Rights Reserved Assessment & Plan - Diagnosis (1) Bilateral pleural effusion Is this a current diagnosis for this admission?: Yes Plan: gentle diuresis (2) Acute respiratory failure Qualifiers: Respiratory failure complication: hypoxia Qualified Code(s): J96.01 - Acute respiratory failure with hypoxia Is this a current diagnosis for this admission?: Yes Plan: Minute ventilation, respiratory rate, airway pressures, FiO2 all suggest successful extubation will proceed with extubation (3) Angio-edema Qualifiers: Encounter type: initial encounter Qualified Code(s): T78.3XXA - Angioneurotic edema, initial encounter Is this a current diagnosis for this admission?: Yes Plan: Continues to improve (4) Hypertension Qualifiers: Hypertension type: essential hypertension Qualified Code(s): I10 - Essential (primary) hypertension Is this a current diagnosis for this admission?: Yes Plan: stable (5) Tobacco use disorder, moderate, dependence Is this a current diagnosis for this admission?: Yes Plan: stop smoking - Time Total Critical Time (Minutes): 55
--- NOTE | 2018-08-02 15:02 | PDOC PROGRESS REPORT ---
Subjective Progress Note for:: 07/20/18 Subjective:: 24 hours status post extubation on BiPAP Reason For Visit: ACUTE ANGIOEDEMA WITH AIRWAY OBSTRUCTION Physical Exam Vital Signs: Temp Pulse Resp BP Pulse Ox 99.3 F 74 16 160/83 H 97 07/20/18 08:00 07/20/18 08:42 07/20/18 08:09 07/20/18 08:00 07/20/18 08:09 Intake & Output 07/19/18 07/20/18 07/21/18 06:59 06:59 06:59 Intake Total 2517 3069 47 Output Total 5455 5550 665 Balance -2938 -2481 -618 Weight 86.8 kg 81.9 kg General appearance: PRESENT: no acute distress, cooperative, disheveled Head exam: PRESENT: atraumatic, normocephalic Eye exam: PRESENT: conjunctiva pale, EOMI. ABSENT: nystagmus, periorbital swelling Mouth exam: PRESENT: dry mucosa, neck supple, tongue midline Neck exam: ABSENT: carotid bruit, full ROM, JVD, lymphadenopathy, meningismus, tenderness, thyromegaly, tracheal deviation, tracheostomy, other Respiratory exam: PRESENT: crackles, decreased breath sounds, prolonged expiratory phas, rhonchi, unlabored, wheezes. ABSENT: retraction, stridor Cardiovascular exam: PRESENT: RRR, +S1, +S2 Pulses: PRESENT: normal radial pulses GI/Abdominal exam: PRESENT: soft. ABSENT: tenderness Gentrourinary exam: PRESENT: indwelling catheter Extremities exam: ABSENT: calf tenderness, clubbing, joint swelling Musculoskeletal exam: ABSENT: deformity, dislocation Neurological exam: PRESENT: alert, awake Psychiatric exam: PRESENT: flat affect Skin exam: PRESENT: dry, warm Results Laboratory Results: 07/20/18 03:57 07/20/18 03:57 07/20/18 07/20/18 07/20/18 03:57 03:57 03:57 WBC 17.5 H RBC 3.10 L Hgb 10.7 L Hct 31.3 L MCV 101 H MCH 34.7 H MCHC 34.4 RDW 18.1 H Plt Count 148 L Seg Neutrophils % 85.6 H Lymphocytes % 6.4 L Monocytes % 6.8 Eosinophils % 0.4 Basophils % 0.8 Absolute Neutrophils 15.0 H Absolute Lymphocytes 1.1 Absolute Monocytes 1.2 Absolute Eosinophils 0.1 Absolute Basophils 0.1 Carbonic Acid 1.13 HCO3/H2CO3 Ratio 25:1 ABG pH 7.50 H ABG pCO2 37.6 ABG pO2 61.0 L ABG HCO3 28.9 H ABG O2 Saturation 93.4 L ABG Base Excess 5.5 FiO2 2L Sodium 140.2 Potassium 3.3 L Chloride 102 Carbon Dioxide 28 Anion Gap 10 BUN 13 Creatinine 0.76 Est GFR ( Amer) > 60 Est GFR (Non-Af Amer) > 60 Glucose 108 Calcium 9.4 Magnesium 1.7 07/09/18 07/09/18 07/10/18 22:55 22:55 05:04 Creatine Kinase 40 L 41 L CK-MB (CK-2) 0.52 Troponin I < 0.012 NT-Pro-B Natriuret Pep 07/10/18 07/10/18 07/10/18 05:04 11:08 11:08 Creatine Kinase 39 L CK-MB (CK-2) 0.52 0.39 Troponin I 0.015 < 0.012 NT-Pro-B Natriuret Pep 07/11/18 04:01 Creatine Kinase CK-MB (CK-2) Troponin I NT-Pro-B Natriuret Pep 621 Impressions: Head CT 07/09/18 23:33 IMPRESSION: Limited due to motion however no evidence for acute intracranial abnormality. Pansinusitis. TECHNICAL DOCUMENTATION: Quality ID # [id number]: Final reports with documentation of one or more dose reduction techniques (e.g., Automated exposure control, adjustment of the mA and/or kV according to patient size, use of iterative reconstruction technique) copyright 2011 [employer] All Rights Reserved Thyroid Ultrasound 07/15/18 08:33 IMPRESSION: LIMITED STUDY. ECHOGENIC SOFT TISSUE, INDETERMINATE, WITH NO EVIDENCE OF ABSCESS OR FLUID COLLECTION. THE PATIENT IS SCHEDULED FOR CT SCAN OF THE SOFT TISSUES OF THE NECK. Soft Tissue Neck CT 07/15/18 11:01 IMPRESSION: 1. NO SIGNIFICANT FINDING IN THE SOFT TISSUES OF THE NECK. NO EVIDENCE OF SOFT TISSUE MASS, ABSCESS, OR ADENOPATHY. 2. BILATERAL PLEURAL EFFUSIONS WITH EXTENSIVE CONSOLIDATION IN THE LEFT UPPER LOBE. 3. FLUID THROUGHOUT THE PARANASAL SINUSES. THIS MAY BE EXACERBATED BY PRESENCE OF THE NASOGASTRIC TUBE. Chest X-Ray 07/18/18 00:00 IMPRESSION: Left basilar pleural effusion and/or atelectasis and/or infiltrate. Right basilar infiltrate/atelectasis has improved somewhat, as compared with the prior chest x-ray. The side-port of the NG tube is in the region of the gastroesophageal junction. copyright 2011 [employer] All Rights Reserved Assessment & Plan - Diagnosis (1) Bilateral pleural effusion Is this a current diagnosis for this admission?: Yes Plan: gentle diuresis (2) Acute respiratory failure Qualifiers: Respiratory failure complication: hypoxia Qualified Code(s): J96.01 - Acute respiratory failure with hypoxia Is this a current diagnosis for this admission?: Yes Plan: 24 hours status post extubation (3) Angio-edema Qualifiers: Encounter type: initial encounter Qualified Code(s): T78.3XXA - Angioneurotic edema, initial encounter Is this a current diagnosis for this admission?: Yes Plan: Continues to improve (4) Hypertension Qualifiers: Hypertension type: essential hypertension Qualified Code(s): I10 - Essential (primary) hypertension Is this a current diagnosis for this admission?: Yes Plan: stable (5) Tobacco use disorder, moderate, dependence Is this a current diagnosis for this admission?: Yes Plan: stop smoking - Time Total Critical Time (Minutes): 40
--- NOTE | 2018-08-02 15:04 | PDOC PROGRESS REPORT ---
Subjective Progress Note for:: 07/21/18 Subjective:: status post extubation on/off BiPAP Reason For Visit: ACUTE ANGIOEDEMA WITH AIRWAY OBSTRUCTION Physical Exam Vital Signs: Temp Pulse Resp BP Pulse Ox 99.5 F 74 18 150/85 H 97 07/21/18 07:26 07/21/18 07:53 07/21/18 07:53 07/21/18 07:26 07/21/18 07:53 Intake & Output 07/20/18 07/21/18 07/22/18 06:59 06:59 06:59 Intake Total 3069 3047 Output Total 5550 5610 200 Balance -2481 -2563 -200 Weight 81.9 kg 79.5 kg General appearance: PRESENT: no acute distress, cooperative, disheveled Head exam: PRESENT: atraumatic, normocephalic Eye exam: PRESENT: conjunctiva pale, EOMI. ABSENT: nystagmus, periorbital swelling Mouth exam: PRESENT: dry mucosa, neck supple, tongue midline Neck exam: ABSENT: carotid bruit, full ROM, JVD, lymphadenopathy, meningismus, tenderness, thyromegaly, tracheal deviation, tracheostomy, other Respiratory exam: PRESENT: decreased breath sounds, prolonged expiratory phas, rhonchi, unlabored, wheezes. ABSENT: crackles, rales, retraction, stridor Cardiovascular exam: PRESENT: RRR, +S1, +S2 Pulses: PRESENT: normal radial pulses GI/Abdominal exam: PRESENT: soft. ABSENT: tenderness Gentrourinary exam: PRESENT: indwelling catheter Extremities exam: PRESENT: pedal edema. ABSENT: calf tenderness, clubbing, joint swelling Musculoskeletal exam: ABSENT: deformity, dislocation Neurological exam: PRESENT: alert, awake Psychiatric exam: PRESENT: appropriate affect Skin exam: PRESENT: dry, warm Results Laboratory Results: 07/21/18 04:55 07/21/18 05:00 07/20/18 07/21/18 07/21/18 11:30 04:55 04:55 WBC 13.8 H RBC 3.18 L Hgb 11.0 L Hct 32.0 L MCV 101 H MCH 34.6 H MCHC 34.4 RDW 18.0 H Plt Count 166 Seg Neutrophils % 81.6 H Lymphocytes % 7.7 L Monocytes % 7.5 Eosinophils % 2.9 Basophils % 0.3 Absolute Neutrophils 11.3 H Absolute Lymphocytes 1.1 Absolute Monocytes 1.0 Absolute Eosinophils 0.4 Absolute Basophils 0.0 Carbonic Acid 0.92 L HCO3/H2CO3 Ratio 26:1 ABG pH 7.52 H ABG pCO2 30.7 L ABG pO2 86.4 ABG HCO3 24.4 H ABG O2 Saturation 97.4 ABG Base Excess 2.3 FiO2 ROOM AIR Sodium Potassium 3.7 Chloride Carbon Dioxide Anion Gap BUN Creatinine Est GFR ( Amer) Est GFR (Non-Af Amer) Glucose Calcium Magnesium Total Bilirubin AST ALT Alkaline Phosphatase Total Protein Albumin 07/21/18 07/21/18 04:55 05:00 WBC RBC Hgb Hct MCV MCH MCHC RDW Plt Count Seg Neutrophils % Lymphocytes % Monocytes % Eosinophils % Basophils % Absolute Neutrophils Absolute Lymphocytes Absolute Monocytes Absolute Eosinophils Absolute Basophils Carbonic Acid HCO3/H2CO3 Ratio ABG pH ABG pCO2 ABG pO2 ABG HCO3 ABG O2 Saturation ABG Base Excess FiO2 Sodium 138.0 Cancelled Potassium 3.6 Cancelled Chloride 100 Cancelled Carbon Dioxide 29 Cancelled Anion Gap 9 Cancelled BUN 15 Cancelled Creatinine 0.75 Cancelled Est GFR ( Amer) > 60 Cancelled Est GFR (Non-Af Amer) > 60 Cancelled Glucose 95 Cancelled Calcium 9.5 Cancelled Magnesium 1.6 Total Bilirubin 0.8 AST 165 H ALT 149 H Alkaline Phosphatase 155 H Total Protein 6.3 Albumin 3.2 L 07/18/18 03:18 Blood Blood Culture - Final Staphylococcus Hominis 07/09/18 07/09/18 07/10/18 22:55 22:55 05:04 Creatine Kinase 40 L 41 L CK-MB (CK-2) 0.52 Troponin I < 0.012 NT-Pro-B Natriuret Pep 07/10/18 07/10/18 07/10/18 05:04 11:08 11:08 Creatine Kinase 39 L CK-MB (CK-2) 0.52 0.39 Troponin I 0.015 < 0.012 NT-Pro-B Natriuret Pep 07/11/18 04:01 Creatine Kinase CK-MB (CK-2) Troponin I NT-Pro-B Natriuret Pep 621 Impressions: Head CT 07/09/18 23:33 IMPRESSION: Limited due to motion however no evidence for acute intracranial abnormality. Pansinusitis. TECHNICAL DOCUMENTATION: Quality ID # [id number]: Final reports with documentation of one or more dose reduction techniques (e.g., Automated exposure control, adjustment of the mA and/or kV according to patient size, use of iterative reconstruction technique) copyright 2011 [employer]- All Rights Reserved Thyroid Ultrasound 07/15/18 08:33 IMPRESSION: LIMITED STUDY. ECHOGENIC SOFT TISSUE, INDETERMINATE, WITH NO EVIDENCE OF ABSCESS OR FLUID COLLECTION. THE PATIENT IS SCHEDULED FOR CT SCAN OF THE SOFT TISSUES OF THE NECK. Soft Tissue Neck CT 07/15/18 11:01 IMPRESSION: 1. NO SIGNIFICANT FINDING IN THE SOFT TISSUES OF THE NECK. NO EVIDENCE OF SOFT TISSUE MASS, ABSCESS, OR ADENOPATHY. 2. BILATERAL PLEURAL EFFUSIONS WITH EXTENSIVE CONSOLIDATION IN THE LEFT UPPER LOBE. 3. FLUID THROUGHOUT THE PARANASAL SINUSES. THIS MAY BE EXACERBATED BY PRESENCE OF THE NASOGASTRIC TUBE. Chest X-Ray 07/20/18 08:00 IMPRESSION: 1. Since the previous examination dated 07/18/2018, interval removal of endotracheal and nasogastric tubes. Right internal jugular central venous line remains. 2. Stable mild right lower lung infiltrate/atelectasis. 3. Left lower lung consolidation and small pleural effusion, unchanged findings. Mild airspace disease suggested in the left lingula. Assessment & Plan - Diagnosis (1) Bilateral pleural effusion Is this a current diagnosis for this admission?: Yes Plan: gentle diuresis (2) Acute respiratory failure Qualifiers: Respiratory failure complication: hypoxia Qualified Code(s): J96.01 - Acute respiratory failure with hypoxia Is this a current diagnosis for this admission?: Yes Plan: 24 hours status post extubation (3) Angio-edema Qualifiers: Encounter type: initial encounter Qualified Code(s): T78.3XXA - Angioneurotic edema, initial encounter Is this a current diagnosis for this admission?: Yes Plan: Continues to improve (4) Hypertension Qualifiers: Hypertension type: essential hypertension Qualified Code(s): I10 - Ess ential (primary) hypertension Is this a current diagnosis for this admission?: Yes Plan: stable (5) Tobacco use disorder, moderate, dependence Is this a current diagnosis for this admission?: Yes Plan: stop smoking - Time Total Critical Time (Minutes): 40
== END 2018-07-28 16:21 | disposition home or self-care (01) | DRG 915 ==
LOC: ER 22:22 → EH 07-10 01:16 → ICU 07-10 03:24 → 3N 07-21 17:18
PROVIDERS: ADMIT Emergency Medicine; ATTEND Emergency Medicine
PROC: 5A1955Z Respiratory Ventilation, Greater than 96 Consecutive Hours (ICD-10-PCS; principal; 2018-07-10)
PROC: 0BH17EZ Insertion of Endotracheal Airway into Trachea, Via Natural or Artificial Opening (ICD-10-PCS; 2018-07-10)
PROC: 0B9G8ZX Drainage of Left Upper Lung Lobe, Via Natural or Artificial Opening Endoscopic, Diagnostic (ICD-10-PCS; 2018-07-13)
PROC: 02HV33Z Insertion of Infusion Device into Superior Vena Cava, Percutaneous Approach (ICD-10-PCS; 2018-07-13)
PROC: 3E0F3GC Introduction of Other Therapeutic Substance into Respiratory Tract, Percutaneous Approach (ICD-10-PCS; 2018-07-14)
PROC: 30233M1 Transfusion of Nonautologous Plasma Cryoprecipitate into Peripheral Vein, Percutaneous Approach (ICD-10-PCS; 2018-07-20)
DX: T78.3XXA Angioneurotic edema, initial encounter (principal); J96.01 Acute respiratory failure with hypoxia; J15.0 Pneumonia due to Klebsiella pneumoniae; A41.01 Sepsis due to Methicillin susceptible Staphylococcus aureus; J15.20 Pneumonia due to staphylococcus, unspecified; R65.20 Severe sepsis without septic shock; J98.19 Other pulmonary collapse; T17.890A Other foreign object in other parts of respiratory tract causing asphyxiation, initial encounter; J90 Pleural effusion, not elsewhere classified; J98.11 Atelectasis; D69.6 Thrombocytopenia, unspecified; E83.42 Hypomagnesemia; Z78.1 Physical restraint status; T46.4X5A Adverse effect of angiotensin-converting-enzyme inhibitors, initial encounter; E78.5 Hyperlipidemia, unspecified; I10 Essential (primary) hypertension; E87.6 Hypokalemia; R41.0 Disorientation, unspecified; R53.81 Other malaise; F10.20 Alcohol dependence, uncomplicated; F17.200 Nicotine dependence, unspecified, uncomplicated; D64.9 Anemia, unspecified; R74.0 Nonspecific elevation of levels of transaminase and lactic acid dehydrogenase [LDH]; E66.9 Obesity, unspecified; R00.0 Tachycardia, unspecified; S01.512A Laceration without foreign body of oral cavity, initial encounter; Y95 Nosocomial condition; Z85.46 Personal history of malignant neoplasm of prostate; Z81.1 Family history of alcohol abuse and dependence; Z80.9 Family history of malignant neoplasm, unspecified; Z82.49 Family history of ischemic heart disease and other diseases of the circulatory system; Z83.438 Family history of other disorder of lipoprotein metabolism and other lipidemia; Z88.8 Allergy status to other drugs, medicaments and biological substances; Z68.30 Body mass index [BMI] 30.0-30.9, adult
CPT/HCPCS: 31500; 36415; 36430; 70450; 70490; 71045; 76536; 76705; 80048; 80053; 80061; 80202; 81001; 82550; 82553; 82607; 82728; 82746; 82803; 82962; 83540; 83550; 83605; 83735; 83880; 84132; 84439; 84443; 84481; 84484; 85025; 85045; 85610; 86900; 86901; 87015; 87040; 87070; 87077; 87086; 87101; 87116; 87186; 87205; 87206; 89050; 93005; 93010; 94002; 94003; 94667; 94668; 94799; 96372; 96374; 96375; 99291; A4649; C1751; C1758; J0171; J0330; J0696; J1200; J1815; J1940; J1956; J2250; J2543; J2704; J2920; J2930; J3010; J3370; J3411; J3475; J3480; J3490; J7030; J7050; J7060; J7620; P9017; S0028; S0164